=== PATIENT | female | born 1995 | race Two or more races ===

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

== ENCOUNTER 2017-01-04 17:56 | Emergency (ER) ==
[2017-01-04 17:56] VITALS: BMI 23.9
[2017-01-04 18:00] VITALS: BP 117/74; TEMP 97.8
--- NOTE | 2017-01-04 18:14 | ED.PDOC ---
General ED Provider: Dr. PURNIMA ESQUIVEL Chief Complaint: Tooth Problem Stated Complaint: DENTAL PAIN Time Seen by Physician: 18:00 Mode of Arrival: Walk-In Information Source: Patient Exam Limitations: No limitations Primary Care Provider: HARRY RENNER Nursing and Triage Documentation Reviewed and Agree: Yes EENT Complaint Exam - Dental/Oral Complaint/Exam Mechanism of Injury: No known trauma Onset/Duration: 3 DAYS Symptoms Are: Still present Timing: Constant Initial Severity: Moderate Current Severity: Moderate Character: Reports: Aching, Throbbing Aggravating: Reports: None, Heat, Cold, Chewing Alleviating: Reports: None Associated Signs and Symptoms: Denies: Swelling, Discharge, Fever, Foul odor, Foul taste in mouth Cardiac Risk Factors: Reports: None Dental/Oral Surgical History: Reports: None Tooth Findings: Present: Gross decay Cervical Lymphadenopathy Present: No Facial Swelling Present: No Bleeding Present: No Oropharynx Findings: Absent: Clots, Active bleeding Septal Hematoma: No Foreign Body Present: No Dysphagia Present: No Drooling Present: No Asymmetrical Tonsillar Swelling Present: No Uvula Midline: Yes Lety-tonsillar Fluctuence: No Trismus Present: No Palatal Petechiae Present: No Scarlatinaform Rash Present: No Teeth Picture: 1 - DECAY Differential Diagnoses: Fractured Tooth Review of Systems - Review Of Systems Constitutional: Reports: No symptoms Eyes: Reports: No symptoms Ears, Nose, Mouth, Throat: Reports: No symptoms Respiratory: Reports: No symptoms Cardiac: Reports: No symptoms GI: Reports: No symptoms : Reports: No symptoms Musculoskeletal: Reports: No symptoms Skin: Reports: No symptoms Neurological: Reports: No symptoms Endocrine: Reports: No symptoms Hematologic/Lymphatic: Reports: No symptoms All Other Systems: Reviewed and Negative Past Medical History - Past Medical History Previously Healthy: No Endocrine: Reports: None Cardiovascular: Reports: None Respiratory: Reports: None Hematological: Reports: None Gastrointestinal: Reports: GERD Genitourinary: Reports: None Neuro/Psych: Reports: Migraine, Anxiety, Depression Musculoskeletal: Reports: None Cancer: Reports: None Last Menstrual Period: 3 days ago Other Pertinent Past Medical History: dep anx migr appy tonsils smoker - Surgical History General Surgical History: Reports: Appendectomy, Tonsillectomy - Family History Family History: Reports: Unknown - Social History Smoking Status: Current every day smoker, Light tobacco smoker Hx Substance Use: No Alcohol Screening: None Physical Exam - Physical Exam Appearance: Well-appearing, No pain distress, Well-nourished Eyes: ANGELA, EOMI, Conjunctiva clear ENT: Ears normal, Nose normal, Oropharynx normal Respiratory: Airway patent, Breath sounds clear, Breath sounds equal, Respirations nonlabored Cardiovascular: RRR, Pulses normal, No rub, No murmur GI/: Soft, Nontender, No masses, Bowel sounds normal, No Organomegaly Musculoskeletal: Normal strength, ROM intact, No edema, No calf tenderness Skin: Warm, Dry, Normal color Neurological: Sensation intact, Motor intact, Reflexes intact, Cranial nerves intact, Alert, Oriented Psychiatric: Affect appropriate, Mood appropriate Critical Care Note - Critical Care Note Total Time (mins): 0 Course - Course Vital Signs: Temp Pulse Resp BP Pulse Ox 01/04/17 17:56 97.8 F 104 H 20 117/74 98 Departure - Departure Time of Disposition: 18:14 Disposition: HOME SELF-CARE Discharge Problem: Toothache Instructions: Toothache (ED) Condition: Good Pt referred to PMD for follow-up: No Allergies/Adverse Reactions: Allergies codeine Adverse Reaction (Verified 01/04/17 18:01) nausea, vomit, itching morphine Adverse Reaction (Verified 01/04/17 18:01) ITCHING/VOMITING naproxen Adverse Reaction (Verified 01/04/17 18:01) Vomiting Home Medications: Ambulatory Orders Dextroamphetamine/Amphetamine [Adderall 15 Mg Tablet] 15 mg PO BID #60 Dextroamphetamine/Amphetamine [Adderall 30 Mg Tablet] 30 mg PO DAILY #30 Diazepam [Valium] 10 mg PO QID #120 10/21/16
== END 2017-01-04 18:18 | disposition home or self-care (01) ==
LOC: ED 17:56
DX: K02.9 Dental caries, unspecified (principal); F17.200 Nicotine dependence, unspecified, uncomplicated
CPT/HCPCS: 99282

== ENCOUNTER 2017-01-14 16:35 | Emergency (ER) ==
[2017-01-14 16:36] VITALS: BMI 23.9
[2017-01-14 16:47] VITALS: BP 114/72; TEMP 98.5
[2017-01-14] MEDS ORDERED: ULTRAM PO STA (16:55)
--- NOTE | 2017-01-14 16:57 | ED.PDOC ---
General ED Provider: Dr. JUAN ANTONIO BURGER Chief Complaint: Tooth Problem Stated Complaint: Been hurting in front teeth, was here couple days ago, Time Seen by Physician: 16:55 Mode of Arrival: Walk-In Information Source: Patient Primary Care Provider: JUAN ANTONIO BURGER-[facility] Nursing and Triage Documentation Reviewed and Agree: Yes EENT Complaint Exam - Dental/Oral Complaint/Exam Mechanism of Injury: No known trauma Symptoms Are: Still present Timing: Constant Initial Severity: Mild Current Severity: Mild Character: Reports: Dull Aggravating: Reports: Cold, Chewing Alleviating: Reports: None Associated Signs and Symptoms: Denies: Swelling, Discharge, Fever, Foul odor, Foul taste in mouth Related History: Reports: Similar episode Cardiac Risk Factors: Reports: None Dental/Oral Surgical History: Reports: None Tooth Findings: Present: Percussion tenderness, Gross decay Cervical Lymphadenopathy Present: No Facial Swelling Present: No Teeth Picture: 1 - dental caries. Differential Diagnoses: Dental Caries Review of Systems - Review Of Systems Constitutional: Reports: No symptoms Eyes: Reports: No symptoms Ears, Nose, Mouth, Throat: Reports: Mouth pain Respiratory: Reports: No symptoms Cardiac: Reports: No symptoms GI: Reports: No symptoms : Reports: No symptoms Musculoskeletal: Reports: No symptoms Skin: Reports: No symptoms Neurological: Reports: No symptoms Endocrine: Reports: No symptoms Hematologic/Lymphatic: Reports: No symptoms All Other Systems: Reviewed and Negative Past Medical History - Past Medical History Previously Healthy: No Endocrine: Reports: None Cardiovascular: Reports: None Respiratory: Reports: None Hematological: Reports: None Gastrointestinal: Reports: GERD Genitourinary: Reports: None Neuro/Psych: Reports: Migraine, Anxiety, Depression Musculoskeletal: Reports: None Cancer: Reports: None Last Menstrual Period: last month Other Pertinent Past Medical History: dep anx migr appy tonsils smoker - Surgical History General Surgical History: Reports: Appendectomy, Tonsillectomy - Family History Family History: Reports: Unknown - Social History Smoking Status: Current every day smoker, Light tobacco smoker Smoking Cessation Counseling Time: > 3 min - 10 min Hx Substance Use: No Alcohol Screening: None - Immunizations Tetanus Shot up to Date: Yes Physical Exam - Physical Exam Appearance: Well-appearing, No pain distress, Well-nourished Eyes: AGNELA, EOMI, Conjunctiva clear ENT: Ears normal, Nose normal, Oropharynx normal Respiratory: Airway patent, Breath sounds clear, Breath sounds equal, Respirations nonlabored Cardiovascular: RRR, Pulses normal, No rub, No murmur GI/: Soft, Nontender, No masses, Bowel sounds normal, No Organomegaly Musculoskeletal: Normal strength, ROM intact, No edema, No calf tenderness Skin: Warm, Dry, Normal color Neurological: Sensation intact, Motor intact, Reflexes intact, Cranial nerves intact, Alert, Oriented Psychiatric: Affect appropriate, Mood appropriate Critical Care Note - Critical Care Note Total Time (mins): 0 Course - Course Orders, Labs, Meds: Orders Category Date Time Status Tramadol HCl [Ultram] MEDS 01/14/17 16:55 Stat 50 mg PO ONCE STA Medications Generic Name Dose Route Start Last Admin Trade Name Freq PRN Reason Stop Dose Admin Tramadol HCl 50 mg 01/14/17 16:55 Ultram PO 01/14/17 16:56 ONCE STA Vital Signs: Temp Pulse Resp BP Pulse Ox 01/14/17 16:36 98.5 F 98 H 16 114/72 96 Departure - Departure Time of Disposition: 16:58 Disposition: HOME SELF-CARE Discharge Problem: Toothache Instructions: Cavity Preventive (For the teeth or gums) Condition: Stable Pt referred to PMD for follow-up: Yes Additional Instructions: needs f/u with dentist advised to quite smoking ' Prescriptions: Tramadol HCl 50 mg PO BID #14 tablet Allergies/Adverse Reactions: Allergies codeine Adverse Reaction (Verified 01/14/17 16:42) nausea, vomit, itching morphine Adverse Reaction (Verified 01/14/17 16:42) ITCHING/VOMITING naproxen Adverse Reaction (Verified 01/14/17 16:42) Vomiting Home Medications: Ambulatory Orders Dextroamphetamine/Amphetamine [Adderall 15 Mg Tablet] 15 mg PO DAILY #60 Dextroamphetamine/Amphetamine [Adderall 30 Mg Tablet] 30 mg PO BID #30 Diazepam [Valium] 10 mg PO QID #120 10/21/16 Tramadol HCl 50 mg PO BID #14 tablet 01/14/17 Disposition Discussed With: Patient, Family
== END 2017-01-14 17:07 | disposition home or self-care (01) ==
LOC: ED 16:35
DX: K08.89 Other specified disorders of teeth and supporting structures (principal); K02.7 Dental root caries; F17.210 Nicotine dependence, cigarettes, uncomplicated
CPT/HCPCS: 99282

== ENCOUNTER 2017-01-29 22:01 | Emergency (ER) ==
[2017-01-29 22:09] VITALS: BP 110/75; TEMP 98; BMI 26.0
--- NOTE | 2017-01-29 22:19 | ED.PDOC ---
General ED Provider: Dr. PAO GARRIDO-ER Chief Complaint: Tooth Problem Stated Complaint: my tooth hurts Time Seen by Physician: 22:05 Mode of Arrival: Walk-In Information Source: Patient Exam Limitations: No limitations Primary Care [facility] and Triage Documentation Reviewed and Agree: Yes EENT Complaint Exam - Dental/Oral Complaint/Exam Mechanism of Injury: No known trauma Onset/Duration: 24hrs Symptoms Are: Still present Timing: Constant Initial Severity: Mild Current Severity: Moderate Location: left upper incisor Character: Reports: Dull, Aching, Throbbing Aggravating: Reports: None Alleviating: Reports: None Associated Signs and Symptoms: Reports: Swelling. Denies: Discharge, Fever, Foul odor, Foul taste in mouth Related History: Reports: Similar episode, Previous tooth problem Cardiac Risk Factors: Reports: Smoking Tooth Findings: Present: Percussion tenderness, Gross decay, Gross caries Cervical Lymphadenopathy Present: No Facial Swelling Present: No Bleeding Present: No Oropharynx Findings: Absent: Clots, Active bleeding Septal Hematoma: No Foreign Body Present: No Dysphagia Present: No Drooling Present: No Asymmetrical Tonsillar Swelling Present: No Uvula Midline: Yes Lety-tonsillar Fluctuence: No Trismus Present: No Palatal Petechiae Present: No Scarlatinaform Rash Present: No Differential Diagnoses: Dental Caries, Fractured Tooth Review of Systems - Review Of Systems Constitutional: Reports: No symptoms Eyes: Reports: No symptoms Ears, Nose, Mouth, Throat: Reports: Mouth pain, Loose teeth Respiratory: Reports: No symptoms Cardiac: Reports: No symptoms GI: Reports: No symptoms : Reports: No symptoms Musculoskeletal: Reports: No symptoms Skin: Reports: No symptoms Neurological: Reports: No symptoms Endocrine: Reports: No symptoms Hematologic/Lymphatic: Reports: No symptoms All Other Systems: Reviewed and Negative Past Medical History - Past Medical History Previously Healthy: No Endocrine: Reports: None Cardiovascular: Reports: None Respiratory: Reports: None Hematological: Reports: None Gastrointestinal: Reports: GERD Genitourinary: Reports: None Neuro/Psych: Reports: Migraine, Anxiety, Depression Musculoskeletal: Reports: None Cancer: Reports: None Last Menstrual Period: 6 days ago Other Pertinent Past Medical History: dep anx migr appy tonsils smoker - Surgical History General Surgical History: Reports: Appendectomy, Tonsillectomy - Family History Family History: Reports: Unknown - Social History Smoking Status: Current every day smoker, Light tobacco smoker Hx Substance Use: No Alcohol Screening: None Lives: With family - Immunizations Tetanus Shot up to Date: Yes Physical Exam - Physical Exam Appearance: Well-appearing, No pain distress, Well-nourished Eyes: ANGELA ENT: Ears normal, Nose normal, Oropharynx normal (noted left upper incisor tenderness) Neck: Supple Respiratory: Airway patent Cardiovascular: RRR, Pulses normal, No rub, No murmur GI/: Soft Musculoskeletal: Normal strength, ROM intact, No edema, No calf tenderness Skin: Warm, Dry, Normal color Neurological: Sensation intact, Motor intact, Reflexes intact, Cranial nerves intact, Alert, Oriented Psychiatric: Affect appropriate, Mood appropriate Critical Care Note - Critical Care Note Total Time (mins): 0 Course - Course Vital Signs: Temp Pulse Resp BP Pulse Ox 01/29/17 22:02 98 F 84 20 110/75 99 Departure - Departure Time of Disposition: 22:20 Disposition: HOME SELF-CARE Discharge Problem: Tooth caries Instructions: Toothache (ED) Condition: Good Pt referred to PMD for follow-up: Yes Additional Instructions: norco 7.5mg q 4hrs prn #10--f/u dentist amanda Allergies/Adverse Reactions: Allergies codeine Adverse Reaction (Verified 01/29/17 22:09) nausea, vomit, itching morphine Adverse Reaction (Verified 01/29/17 22:09) ITCHING/VOMITING naproxen Adverse Reaction (Verified 01/29/17 22:09) Vomiting Home Medications: Ambulatory Orders Dextroamphetamine/Amphetamine [Adderall 15 Mg Tablet] 15 mg PO DAILY #60 Dextroamphetamine/Amphetamine [Adderall 30 Mg Tablet] 30 mg PO BID #30 Diazepam [Valium] 10 mg PO QID #120 10/21/16 Disposition Discussed With: Patient
== END 2017-01-29 22:25 | disposition home or self-care (01) ==
LOC: ED 22:01
DX: K02.7 Dental root caries (principal); F17.210 Nicotine dependence, cigarettes, uncomplicated
CPT/HCPCS: 99282

== ENCOUNTER 2017-02-19 21:42 | Emergency (ER) ==
[2017-02-19 21:42] VITALS: BMI 23.9
[2017-02-19 21:59] VITALS: BP 125/87; TEMP 98.6
[2017-02-19] MEDS ORDERED: DECADRON 4 MG/ML SDV IM STA (22:04)
[2017-02-19] MEDS ORDERED: TORADOL IM STA (22:04)
--- NOTE | 2017-02-19 22:23 | ED.PDOC ---
General ED Provider: Dr. JUAN ANTONIO BURGER Chief Complaint: Headache Stated Complaint: Been having headache, migraine attack, light bothering me. also c/o swelling in the vagina, as she used the wrong cream for itching, no it is itching burning. Time Seen by Physician: 22:21 Mode of Arrival: Walk-In Information Source: Patient Primary Care Provider: JUAN ANTONIO BURGER-[facility] Nursing and Triage Documentation Reviewed and Agree: Yes Neurological Complaint Exam - Headache Complaint/Exam Onset: Gradual Symptoms Are: Still present Timing: Constant Episodes Lasting: Hours Worst Headache Ever: No Initial Severity: Moderate Current Severity: Moderate Location: Right, Left, Frontal Character: Reports: Typical headache Aggravating: Reports: Bright lights Alleviating: Reports: None Related Surgical History: Reports: None SAH Risk Factors: Reports: None Meningitis Risk Factors: Reports: None SDH Risk Factors: Reports: None Temporal Arteritis Risk Factors: Reports: None Normal Head CT Within Last 12 Months: Yes Fundoscopic Exam: Present: Normal Findings Papilledema Present: No Temporal Artery Tenderness: Present: None Sinus Tenderness: Present: None TMJ Tenderness: Present: None Meningeal Signs Positive: No Pain on Passive Flexion-Positive Kernig's: No ROM Limited In: No Limitiations Focal Weakness: Present: None Focal Sensory Loss: Present: None Gait: Normal Nystagmus Present: No Gag Reflex Present: Yes [id number]: Normal Findings Romberg Test Positive: No Babinski Sign: Negative Right, Negative Left Differential Diagnoses: Migraine Review of Systems - Review Of Systems Constitutional: Reports: No symptoms Eyes: Reports: No symptoms Ears, Nose, Mouth, Throat: Reports: No symptoms Respiratory: Reports: No symptoms Cardiac: Reports: No symptoms GI: Reports: No symptoms : Reports: No symptoms Musculoskeletal: Reports: No symptoms Skin: Reports: No symptoms Neurological: Reports: Headache Endocrine: Reports: No symptoms Hematologic/Lymphatic: Reports: No symptoms All Other Systems: Reviewed and Negative Past Medical History - Past Medical History Previously Healthy: No Endocrine: Reports: None Cardiovascular: Reports: None Respiratory: Reports: None Hematological: Reports: None Gastrointestinal: Reports: GERD Genitourinary: Reports: None Neuro/Psych: Reports: Migraine, Anxiety, Depression Musculoskeletal: Reports: None Cancer: Reports: None Last Menstrual Period: PRESENTLY Other Pertinent Past Medical History: dep anx migr appy tonsils smoker - Surgical History General Surgical History: Reports: Appendectomy, Tonsillectomy - Family History Family History: Reports: Unknown - Social History Smoking Status: Current every day smoker, Heavy tobacco smoker Smoking Cessation Counseling Time: > 3 min - 10 min Hx Substance Use: No Alcohol Screening: None - Immunizations Tetanus Shot up to Date: Yes Physical Exam - Physical Exam Appearance: Ill-appearing, Thin Pain Distress: Moderate Eyes: ANGELA, EOMI ENT: Ears normal, Nose normal, Oropharynx normal Respiratory: Airway patent, Breath sounds clear, Breath sounds equal, Respirations nonlabored Cardiovascular: RRR, Pulses normal, No rub, No murmur GI/: Soft (nurse marina examined the vagina, left labia swollen ), Nontender, No masses, Bowel sounds normal, No Organomegaly Musculoskeletal: Normal strength, ROM intact, No edema, No calf tenderness Skin: Warm, Dry, Normal color Neurological: Sensation intact, Motor intact, Reflexes intact, Cranial nerves intact, Alert, Oriented Psychiatric: Affect appropriate, Mood appropriate Critical Care Note - Critical Care Note Total Time (mins): 0 Course - Course Orders, Labs, Meds: Orders Category Date Time Status Dexamethasone 4 mg/ml Inj [Decadron 4 mg/ml Sdv] MEDS 02/19/17 22:04 Discontinued 4 mg IM ONCE STA Ketorolac Tromethamine [Toradol] MEDS 02/19/17 22:04 Discontinued 30 mg IM ONCE STA Medications Discontinued Medications Generic Name Dose Route Start Last Admin Trade Name Freq PRN Reason Stop Dose Admin Dexamethasone Sodium Phosphate 4 mg 02/19/17 22:04 02/19/17 22:14 Decadron 4 Mg/Ml Sdv IM 02/19/17 22:05 4 mg ONCE STA Administration Ketorolac Tromethamine 30 mg 02/19/17 22:04 02/19/17 22:13 Toradol IM 02/19/17 22:05 30 mg ONCE STA Administration Vital Signs: Temp Pulse Resp BP Pulse Ox 02/19/17 21:42 98.6 F 84 16 125/87 100 Departure - Departure Time of Disposition: 22:25 Disposition: HOME SELF-CARE Discharge Problem: Headache Instructions: General Allergic Reaction (ED) Condition: Stable Pt referred to PMD for follow-up: Yes Additional Instructions: If not better needs f/u at [facility] Tylenol prn with food Prescriptions: Prednisone 10 mg PO BIDWM #14 tablet Allergies/Adverse Reactions: Allergies codeine Adverse Reaction (Verified 02/19/17 21:50) nausea, vomit, itching morphine Adverse Reaction (Verified 02/19/17 21:50) ITCHING/VOMITING naproxen Adverse Reaction (Verified 02/19/17 21:50) Vomiting Home Medications: Ambulatory Orders Dextroamphetamine/Amphetamine [Adderall 30 mg Tablet] 15 mg PO DAILY 02/19/17 Dextroamphetamine/Amphetamine [Adderall 30 mg Tablet] 30 mg PO BID 02/19/17 Prednisone 10 mg PO BIDWM #14 tablet 02/19/17 Disposition Discussed With: Patient, Family
== END 2017-02-19 22:40 | disposition home or self-care (01) ==
LOC: ED 21:42
DX: R51 Headache (principal); T50.905A Adverse effect of unspecified drugs, medicaments and biological substances, initial encounter; F17.210 Nicotine dependence, cigarettes, uncomplicated
CPT/HCPCS: 96372; 99283

== ENCOUNTER 2017-02-23 13:11 | Emergency (ER) ==
[2017-02-23 13:12] VITALS: BMI 23.9
[2017-02-23 13:18] VITALS: BP 117/75; TEMP 97.6
[2017-02-23 14:03] LABS: BILIRUBIN,URINE Negative (NEGATIVE); KETONES,URINE Trace (NEGATIVE); LEUKOCYTE ESTERASE ,URINE Negative (NEGATIVE); NITRITE,URINE Negative (NEGATIVE); PROTEIN,URINE Negative (NEGATIVE); URINE, BLOOD Trace-intact (NEGATIVE)
[2017-02-23 14:05] LABS: URINE PREGNANCY INTERNAL QC INTERNAL QC VALID
[2017-02-23 14:07] LABS: BASOPHILS # (AUTO) 0.1 K/uL (0-0.2); BASOPHILS % (AUTO) 0.3 % (0.0-3.0); EOSINOPHILS # (AUTO) 0.1 K/ul (0.0-0.7); EOSINOPHILS % (AUTO) 0.8 % (0.0-7.0); HEMOGLOBIN 14.6 g/dl (12.0-16.0); IMMATURE GRANULOCYTE % (AUTO) 0.4 % (0.0-5.0); LYMPHOCYTES # (AUTO) 2.1 K/uL (0.60-3.4); LYMPHOCYTES % (AUTO) 11.5 (10.0-50.0); MEAN CORPUSCULAR HEMOGLOBIN 27.4 pg (27.0-31.0); MEAN CORPUSCULAR HGB CONC 33.2 (31.8-35.4); MEAN CORPUSCULAR VOLUME 82.6 fl (81.0-99.0); MONOCYTES # (AUTO) 0.8 K/uL (0.4-2.0); MONOCYTES % (AUTO) 4.3 (0-10); NEUTROPHILS # (AUTO) 14.8 K/ul (2.0-6.9); NEUTROPHILS % (AUTO) 82.7; PLATELET COUNT 305 10^3/uL (140-440); RED BLOOD COUNT 5.33 10^6/ul (4.20-5.40); WHITE BLOOD COUNT 17.94 K/ul (4.6-10.2)
[2017-02-23 14:14] LABS: ADD URINE MICROSCOPIC YES
[2017-02-23 14:15] LABS: BACTERIA,URINE TRACE (NOT PRESENT)
[2017-02-23 14:23] LABS: ALBUMIN 4.3 g/dL (3.7-5.6); ALBUMIN/GLOBULIN RATIO 1.19; ANION GAP 15.6; BILIRUBIN,TOTAL 0.4 mg/dL (0.60-1.40); BUN/CREATININE RATIO 13.63; CALCIUM 9.1 mg/dL (8.2-10.2); CREATININE 0.66 mg/dL (0.60-1.30); POTASSIUM 3.6 mmol/L (3.5-5.10); TOTAL PROTEIN 7.9 g/dL (6.4-8.2)
--- NOTE | 2017-02-23 14:24 | DI ---
EXAM: Two-view chest HISTORY: Cough TECHNIQUE: Frontal and lateral views of the chest were obtained. Comparison 12/28/2014. FINDINGS: The heart is normal size. Lungs are clear. The pulmonary vasculature appears normal. IMPRESSION: No active cardiopulmonary disease.
--- NOTE | 2017-02-23 14:36 | ED.PDOC ---
General ED Provider: Dr. PURNIMA ESQUIVEL Chief Complaint: Respiratory Complaint Stated Complaint: cough Time Seen by Physician: 13:20 (seen with staff at all times ) Mode of Arrival: Walk-In Information Source: Patient Exam Limitations: No limitations Primary [facility] and Triage Documentation Reviewed and Agree: Yes Respiratory Complaint Exam - Respiratory Complaint/Exam Symptoms Are: Still present Timing: Constant Initial Severity: Moderate Current Severity: Moderate Location: Chest Character: Reports: Non-productive cough Aggravating: Reports: None Alleviating: Reports: None Associated Signs and Symptoms: Reports: URI, Nasal congestion. Denies: Rapid breathing, Dyspnea, Fever, Chills, Chest pain, Pleuritic chest pain, Wheezing, Hemoptysis, Dizziness, Calf pain, Calf swelling, Edema, Hoarseness, Sinus discomfort, Vomiting, Weight loss, Decreased oral intake, Increased thirst, Increased appetite, Increased urination History of Healthcare-Acquired Pneumonia: No Related Surgical History: Reports: None Pulmonary Embolism Risk Factors: None Cardiac Risk Factors: Reports: None Pseudomonas Risk Factors: Reports: None Tuberculosis Risk Factors: Reports: None Status Asthmaticus Risk Factors: Reports: None Home Oxygen Use: No Recent Stress Test: No Recent Echo/LV Function: No Current Antibiotic Use: No Current Asthma Medication Use: No Respiratory Distress: None Inadequate Respiratory Effort: No Dysphagia Present: No Stridor Present: No JVD Present: No Accessory Muscle Use: No Retractions: Not Present Diminished Breath Sounds: No Sinus Tenderness: None Grunting Respirations: No Kussmaul Respirations: No Differential Diagnoses: Pneumonia, Bronchitis Review of Systems - Review Of Systems Constitutional: Reports: No symptoms Eyes: Reports: No symptoms Ears, Nose, Mouth, Throat: Reports: No symptoms Respiratory: Reports: Cough Cardiac: Reports: No symptoms GI: Reports: No symptoms : Reports: No symptoms Musculoskeletal: Reports: No symptoms Skin: Reports: No symptoms Neurological: Reports: No symptoms Endocrine: Reports: No symptoms Hematologic/Lymphatic: Reports: No symptoms All Other Systems: Reviewed and Negative Past Medical History - Past Medical History Previously Healthy: No Endocrine: Reports: None Cardiovascular: Reports: None Respiratory: Reports: None Hematological: Reports: None Gastrointestinal: Reports: GERD Genitourinary: Reports: None Neuro/Psych: Reports: Migraine, Anxiety, Depression Musculoskeletal: Reports: None Cancer: Reports: None Last Menstrual Period: NOW Other Pertinent Past Medical History: dep anx migr appy tonsils smoker - Surgical History General Surgical History: Reports: Appendectomy, Tonsillectomy - Family History Family History: Reports: Unknown - Social History Smoking Status: Current every day smoker Hx Substance Use: No Alcohol Screening: None - Immunizations Tetanus Shot up to Date: Yes Physical Exam - Physical Exam Appearance: Well-appearing, No pain distress, Well-nourished Eyes: ANGELA, EOMI, Conjunctiva clear ENT: Ears normal, Nose normal, Oropharynx normal Respiratory: Airway patent, Breath sounds clear, Breath sounds equal, Respirations nonlabored Cardiovascular: RRR, Pulses normal, No rub, No murmur GI/: Soft, Nontender, No masses, Bowel sounds normal, No Organomegaly Musculoskeletal: Normal strength, ROM intact, No edema, No calf tenderness Skin: Warm, Dry, Normal color Neurological: Sensation intact, Motor intact, Reflexes intact, Cranial nerves intact, Alert, Oriented Psychiatric: Affect appropriate, Mood appropriate Interpretation - Radiology Interpretation Radiology Results: No acute changes Critical Care Note - Critical Care Note Total Time (mins): 0 Course - Course Hematology/Chemistry: 02/23/17 13:55 02/23/17 13:55 Orders, Labs, Meds: Lab Review 02/23/17 02/23/17 13:50 13:55 WBC 17.94 H RBC 5.33 Hgb 14.6 Hct 44.0 MCV 82.6 MCH 27.4 MCHC 33.2 RDW Coeff of Sj 13.8 Plt Count 305 Immature Gran % (Auto) 0.4 Neut % (Auto) 82.7 Lymph % (Auto) 11.5 [place] % (Auto) 4.3 Eos % (Auto) 0.8 Baso % (Auto) 0.3 Immature Gran # (Auto) 0.1 Neut # 14.8 H Lymph # 2.1 [place] # 0.8 Eos # 0.1 Baso # 0.1 Sodium 142 Potassium 3.6 Chloride 106 Carbon Dioxide 24 Anion Gap 15.6 BUN 9 Creatinine 0.66 Estimated GFR (MDRD) 115.00 BUN/Creatinine Ratio 13.63 Glucose 81 Calcium 9.1 Total Bilirubin 0.40 L AST 13 ALT 19 Alkaline Phosphatase 65 Total Protein 7.9 Albumin 4.3 Globulin 3.6 Albumin/Globulin Ratio 1.19 Urine Color Yellow Urine Clarity Clear Urine pH 7.0 Ur Specific [place] 1.025 Urine Protein Negative Urine Glucose (UA) Negative Urine Ketones Trace Urine Blood Trace-intact Urine Nitrite Negative Urine Bilirubin Negative Urine Urobilinogen 0.2 Ur Leukocyte Esterase Negative Urine Microscopic RBC 2-5 Urine Microscopic WBC 0-2 Ur Squamous Epith Cells 2-5 Ur Renal Epithelial Cell 0-2 Calcium Oxalate Crystal 1+ Amorphous Sediment 1+ Urine Bacteria Trace Urine Mucus Trace Urine Test Negative Orders Category Date Time Status CBC W/ AUTO DIFF Stat LAB 02/23/17 13:55 Completed COMPREHENSIVE METABOLIC PANEL Stat LAB 02/23/17 13:55 Completed MOLECULAR GROUP A STREP Stat LAB 02/23/17 13:22 Results TEST URINE [URINE ] Stat LAB 02/23/17 13:50 Completed RAPID STREP SCREEN [STREP SCREEN] Stat LAB 02/23/17 13:22 Results URINALYSIS C & S IF INDICATED Stat LAB 02/23/17 13:50 Completed CHEST, 2 VIEWS PA & LAT Stat RADS 02/23/17 13:42 Completed Vital Signs: Temp Pulse Resp BP Pulse Ox 02/23/17 13:14 97.6 F 72 16 117/75 98 Departure - Departure Time of Disposition: 14:36 Disposition: HOME SELF-CARE Discharge Problem: Cough Instructions: How Your Lungs Work (ED), Acute Cough (ED) Condition: Good Pt referred to PMD for follow-up: Yes Additional Instructions: Please call your Family Physician as soon as possible to schedule a follow-up appointment. Allergies/Adverse Reactions: Allergies codeine Adverse Reaction (Verified 02/23/17 13:13) nausea, vomit, itching morphine Adverse Reaction (Verified 02/23/17 13:13) ITCHING/VOMITING naproxen Adverse Reaction (Verified 02/23/17 13:13) Vomiting Home Medications: Ambulatory Orders Dextroamphetamine/Amphetamine [Adderall 30 mg Tablet] 30 mg PO BID 02/19/17 Prednisone 10 mg PO BIDWM #14 tablet 02/19/17 Disposition Discussed With: Patient
== END 2017-02-23 14:47 | disposition home or self-care (01) ==
LOC: ED 13:11
DX: R05 Cough (principal); F17.210 Nicotine dependence, cigarettes, uncomplicated
CPT/HCPCS: 36415; 80053; 81001; 81025; 85025; 87651; 87880; 99283

== ENCOUNTER 2017-02-26 15:48 | Emergency (ER) ==
[2017-02-26 15:48] VITALS: BMI 23.9
[2017-02-26 15:57] VITALS: BP 129/71; TEMP 97.9
--- NOTE | 2017-02-26 16:00 | ED.PDOC ---
General ED Provider: Dr. GERMÁN VILLALBA JR Chief Complaint: Rash Stated Complaint: patient was seen on the of this month for the same complaint and was given steroids. patient states now area is red and raw and bleeding. states she used the wrong hair removal cream. [ End ] Time Seen by Physician: 16:00 Mode of Arrival: Walk-In Information Source: Patient Exam Limitations: No limitations Primary Care Provider[facility] and Triage Documentation Reviewed and Agree: No Review of Systems - Review Of Systems Constitutional: Reports: No symptoms Eyes: Reports: No symptoms Ears, Nose, Mouth, Throat: Reports: No symptoms Respiratory: Reports: No symptoms Cardiac: Reports: No symptoms GI: Reports: No symptoms : Reports: Burning, Pain, Other Skin: Reports: Rash Neurological: Reports: Anxiety Endocrine: Reports: No symptoms Hematologic/Lymphatic: Reports: No symptoms All Other Systems: Other Past Medical History - Past Medical History Previously Healthy: No Endocrine: Reports: None Cardiovascular: Reports: None Respiratory: Reports: None Hematological: Reports: None Gastrointestinal: Reports: GERD Genitourinary: Reports: None Neuro/Psych: Reports: Migraine, Anxiety, Depression Musculoskeletal: Reports: None Cancer: Reports: None Last Menstrual Period: 1 1/2 weeks ago Other Pertinent Past Medical History: dep anx migr appy tonsils smoker - Surgical History General Surgical History: Reports: Appendectomy, Tonsillectomy - Family History Family History: Reports: Unknown - Social History Smoking Status: Current every day smoker Hx Substance Use: No Alcohol Screening: None Physical Exam - Physical Exam Appearance: Well-appearing Pain Distress: Moderate Neck: Supple Respiratory: Airway patent GI/: Soft, Tender (yellow thick mucoid discharge) Critical Care Note - Critical Care Note Total Time (mins): 0 Course - Course Orders, Labs, Meds: Lab Review 02/26/17 16:30 Clue Cells (Wet Prep) None seen Trichomonas (Wet Prep) None seen Vaginal WBC Moderate HIV 1&2 Antibody Screen Negative HIV P24 Antigen Negative MYLENE Preparation No fungal elements Orders Category Date Time Status CHLAMYDIA/GC AMPLIFICATION Stat LAB 02/26/17 16:30 Received HIV RAPID TEST [RAPID HIV SCREEN] Stat LAB 02/26/17 16:30 Completed MYLENE PREP Stat LAB 02/26/17 16:30 Completed RAPID PLASMA REAGIN Stat LAB 02/26/17 16:30 Received WET PREP Stat LAB 02/26/17 16:30 Completed Ceftriaxone Sodium [Rocephin] MEDS 02/26/17 16:23 Discontinued 250 mg IM ONCE STA Lidocaine HCl/Pf [Lidocaine 1 % Amp 5 ml (Sutures)] MEDS 02/26/17 16:23 Discontinued 0.9 ml IM ONCE STA Medications Discontinued Medications Generic Name Dose Route Start Last Admin Trade Name Colleen ZELAYAN Reason Stop Dose Admin Ceftriaxone Sodium 250 mg 02/26/17 16:23 02/26/17 16:35 Rocephin IM 02/26/17 16:24 250 mg ONCE STA Administration Lidocaine HCl 0.9 ml 02/26/17 16:23 02/26/17 16:37 Lidocaine 1 % Amp 5 Ml (Sutures) IM 02/26/17 16:24 0.9 ml ONCE STA Administration Vital Signs: Temp Pulse Resp BP Pulse Ox 02/26/17 15:49 97.9 F 95 H 16 129/71 96 Departure - Departure Time of Disposition: 16:07 Disposition: HOME SELF-CARE Discharge Problem: Pruritic rash, Vaginal discharge Instructions: Sexually Transmitted Diseases in Adolescents (ED) Condition: Good Pt referred to PMD for follow-up: Yes Additional Instructions: no evidence of yeast, trich or HIV on testing cultures and RPR will be reported to your physician desitin(generic is good) twice a day for three days then Vitamin A&D ointment or Vaseline twice a day until resolved cleanse with shampoo(unscented) once a day Rocephin antibiotic given take doxycycline twice a day for 14 days recheck PMD Tuesday or Tuesday Prescriptions: Doxycycline Monohydrate [Monodox] 100 mg PO BID #28 capsule Allergies/Adverse Reactions: Allergies codeine Adverse Reaction (Verified 02/26/17 15:53) nausea, vomit, itching morphine Adverse Reaction (Verified 02/26/17 15:53) ITCHING/VOMITING naproxen Adverse Reaction (Verified 02/26/17 15:53) Vomiting Home Medications: Ambulatory Orders Dextroamphetamine/Amphetamine [Adderall 30 mg Tablet] 30 mg PO BID 02/19/17 Doxycycline Monohydrate [Monodox] 100 mg PO BID #28 capsule 02/26/17
[2017-02-26] MEDS ORDERED: LIDOCAINE 1 % AMP 5 ML (SUTURES) IM STA (16:23)
[2017-02-26] MEDS ORDERED: ROCEPHIN IM STA (16:23)
[2017-02-26 17:03] LABS: WBC MODERATE (FEW)
[2017-02-26 17:08] LABS: HIV INTERNAL QC INTERNAL QC VALID; HIV-1 p24 ANTIGEN SCREEN NEGATIVE (NEGATIVE); HIV-1/2 ANTIBODY SCREEN NEGATIVE (NEGATIVE)
[2017-03-01 07:10] LABS: RAPID PLASMA REAGIN Non Reactive (Non Reactive)
== END 2017-02-26 17:17 | disposition home or self-care (01) ==
LOC: ED 15:48
DX: R21 Rash and other nonspecific skin eruption (principal); L29.9 Pruritus, unspecified; N89.8 Other specified noninflammatory disorders of vagina; F17.210 Nicotine dependence, cigarettes, uncomplicated
CPT/HCPCS: 36415; 86592; 87210; 87800; 96372; 99283

== ENCOUNTER 2017-03-22 06:29 | Emergency (ER) ==
[2017-03-22 06:31] VITALS: BMI 23.9
[2017-03-22 06:40] VITALS: BP 119/79; TEMP 99.3
[2017-03-22 06:59] LABS: BILIRUBIN,URINE Negative (NEGATIVE); KETONES,URINE Negative (NEGATIVE); LEUKOCYTE ESTERASE ,URINE 3+ (NEGATIVE); NITRITE,URINE Positive (NEGATIVE); PROTEIN,URINE 3+ (NEGATIVE); URINE, BLOOD 2+ (NEGATIVE)
[2017-03-22 07:03] LABS: URINE PREGNANCY INTERNAL QC INTERNAL QC VALID
[2017-03-22 07:06] LABS: ADD URINE MICROSCOPIC YES
[2017-03-22 07:08] LABS: BACTERIA,URINE 4+ (NOT PRESENT)
--- NOTE | 2017-03-22 08:04 | ED.PDOC ---
General ED Provider: Dr. PURNIMA ESQUIVEL Chief Complaint: Back Pain Stated Complaint: back pain Time Seen by Physician: 06:32 (seen with calista at all times ) Mode of Arrival: Walk-In (to have a test) Information Source: Patient Exam Limitations: No limitations Primary [facility] and Triage Documentation Reviewed and Agree: Yes Musculoskeletal Complaint Exam - Back Pain Complaint/Exam Mechanism of Injury: Reports: No known trauma Onset/Duration: 2 days Symptoms Are: Still present Timing: Intermittent Episodes Lasting: Days Initial Severity: Moderate Current Severity: Mild Character: Reports: Aching Aggravating: Reports: None Alleviating: Reports: None Associated Signs and Symptoms: Reports: Flank pain. Denies: Swelling, Redness, Bruising, Fever, Weakness, Numbness, Tingling, Abdominal pain, Bladder incontinence, Bowel incontinence, Weight loss, Pain with weight bearing Related History: Reports: Similar episode TAD Risk Factors: Reports: None Cauda Equina Risk Factors: Reports: None Epidural Abcess Risk Factors: Reports: None Related Surgical History: Reports: None Focal Tenderness: No Paraspinal Muscle Tenderness: No Paraspinal Muscle Spasm: No Scoliosis: No Lordosis: No Kyphosis: No SLR Test: Right Negative, Left Negative Hip Motion Testing Pain: Right Negative, Left Negative Focal Weakness: Present: None Focal Sensory Loss: Present: None Gait: Present: Normal Differential Diagnoses: Strain, Sprain Review of Systems - Review Of Systems Constitutional: Reports: No symptoms Eyes: Reports: No symptoms Ears, Nose, Mouth, Throat: Reports: No symptoms Respiratory: Reports: No symptoms Cardiac: Reports: No symptoms GI: Reports: No symptoms : Reports: No symptoms Musculoskeletal: Reports: Back pain Skin: Reports: No symptoms Neurological: Reports: No symptoms Endocrine: Reports: No symptoms Hematologic/Lymphatic: Reports: No symptoms All Other Systems: Reviewed and Negative Past Medical History - Past Medical History Previously Healthy: No Endocrine: Reports: None Cardiovascular: Reports: None Respiratory: Reports: None Hematological: Reports: None Gastrointestinal: Reports: GERD Genitourinary: Reports: None Neuro/Psych: Reports: Migraine, Anxiety, Depression Musculoskeletal: Reports: None Cancer: Reports: None Last Menstrual Period: February, unsure of date, states, "possibility of " Other Pertinent Past Medical History: dep anx migr appy tonsils smoker - Surgical History General Surgical History: Reports: Appendectomy, Tonsillectomy - Family History Family History: Reports: Unknown - Social History Smoking Status: Current every day smoker Hx Substance Use: No Alcohol Screening: None - Immunizations Tetanus Shot up to Date: Yes Physical Exam - Physical Exam Appearance: Well-appearing, No pain distress, Well-nourished Eyes: ANGELA, EOMI, Conjunctiva clear ENT: Ears normal, Nose normal, Oropharynx normal Respiratory: Airway patent, Breath sounds clear, Breath sounds equal, Respirations nonlabored Cardiovascular: RRR, Pulses normal, No rub, No murmur GI/: Soft, Nontender, No masses, Bowel sounds normal, No Organomegaly Musculoskeletal: Normal strength, ROM intact, No edema, No calf tenderness Skin: Warm, Dry, Normal color Neurological: Sensation intact, Motor intact, Reflexes intact, Cranial nerves intact, Alert, Oriented Psychiatric: Affect appropriate, Mood appropriate Critical Care Note - Critical Care Note Total Time (mins): 0 Course - Course Orders, Labs, Meds: Lab Review 03/22/17 06:51 Urine Color Yellow Urine Clarity Cloudy Urine pH 6.0 Ur Specific [place] 1.025 Urine Protein 3+ Urine Glucose (UA) Negative Urine Ketones Negative Urine Blood 2+ Urine Nitrite Positive Urine Bilirubin Negative Urine Urobilinogen 0.2 Ur Leukocyte Esterase 3+ Urine Microscopic RBC 5-10 Urine Microscopic WBC Tntc Ur Squamous Epith Cells 2-5 Urine Bacteria 4+ Urine Test Negative Orders Category Date Time Status URINALYSIS C & S IF INDICATED Stat LAB 03/22/17 06:51 Completed URINE CULTURE Stat LAB 03/22/17 06:51 Received URINE Stat LAB 03/22/17 06:51 Completed Vital Signs: Temp Pulse Resp BP Pulse Ox 03/22/17 06:32 99.3 F 89 20 119/79 96 Departure - Departure Time of Disposition: 08:04 Disposition: HOME SELF-CARE Discharge Problem: Backache Urinary tract infection Qualifiers: Urinary tract infection type: site unspecified Hematuria presence: without hematuria Qualifier Code: (N39.0) Urinary tract infection, site not specified Instructions: Urinary Tract Infection in Women (ED) Condition: Good Pt referred to PMD for follow-up: Yes Additional Instructions: Please call your Family Physician as soon as possible to schedule a follow-up appointment. Prescriptions: Sulfamethoxazole/Trimethoprim [Bactrim Ds Tablet] 1 each PO BID #10 tablet Allergies/Adverse Reactions: Allergies codeine Adverse Reaction (Verified 03/22/17 06:40) nausea, vomit, itching morphine Adverse Reaction (Verified 03/22/17 06:40) ITCHING/VOMITING naproxen Adverse Reaction (Verified 03/22/17 06:40) Vomiting Home Medications: Ambulatory Orders Dextroamphetamine/Amphetamine [Adderall 30 mg Tablet] 30 mg PO BID 02/19/17 Sulfamethoxazole/Trimethoprim [Bactrim Ds Tablet] 1 each PO BID #10 tablet 03/22
== END 2017-03-22 08:18 | disposition home or self-care (01) ==
LOC: ED 06:29
DX: N39.0 Urinary tract infection, site not specified (principal); R31.9 Hematuria, unspecified; F17.210 Nicotine dependence, cigarettes, uncomplicated
CPT/HCPCS: 81001; 81025; 87086; 87186; 99283

== ENCOUNTER 2017-03-25 15:54 | Inpatient (IN) ==
[2017-03-25 16:08] VITALS: BMI 24.3
[2017-03-25] MEDS ORDERED: LIDOCAINE 1 % AMP 5 ML (SUTURES) IM STA (16:13)
[2017-03-25] MEDS ORDERED: ROCEPHIN IM STA (16:13)
[2017-03-25 16:51] LABS: BASOPHILS % (AUTO) 0.3 % (0.0-3.0); EOSINOPHILS # (AUTO) 0.2 K/ul (0.0-0.7); EOSINOPHILS % (AUTO) 1.6 % (0.0-7.0); HEMATOCRIT 38.6 % (37.0-47.0); HEMOGLOBIN 13.2 g/dl (12.0-16.0); IMMATURE GRANULOCYTE % (AUTO) 0.3 % (0.0-5.0); LYMPHOCYTES # (AUTO) 0.7 K/uL (0.60-3.4); LYMPHOCYTES % (AUTO) 7.1 (10.0-50.0); MEAN CORPUSCULAR HEMOGLOBIN 27.7 pg (27.0-31.0); MEAN CORPUSCULAR HGB CONC 34.2 (31.8-35.4); MEAN CORPUSCULAR VOLUME 81.1 fl (81.0-99.0); MONOCYTES # (AUTO) 0.8 K/uL (0.4-2.0); MONOCYTES % (AUTO) 7.3 (0-10); NEUTROPHILS # (AUTO) 8.6 K/ul (2.0-6.9); NEUTROPHILS % (AUTO) 83.4; PLATELET COUNT 246 10^3/uL (140-440); RED BLOOD COUNT 4.76 10^6/ul (4.20-5.40); WHITE BLOOD COUNT 10.31 K/ul (4.6-10.2)
[2017-03-25 16:53] LABS: BILIRUBIN,URINE Negative (NEGATIVE); KETONES,URINE 1+ (NEGATIVE); LEUKOCYTE ESTERASE ,URINE 3+ (NEGATIVE); NITRITE,URINE Positive (NEGATIVE); PH,URINE 7.5 (5-9); PROTEIN,URINE Trace (NEGATIVE); URINE, BLOOD 2+ (NEGATIVE)
[2017-03-25 16:57] LABS: ADD URINE MICROSCOPIC YES
[2017-03-25 16:58] LABS: BACTERIA,URINE 3+ (NOT PRESENT)
--- NOTE | 2017-03-25 17:04 | ED.PDOC ---
General ED Provider: Dr. PURNIMA ESQUIVEL Chief Complaint: Abdominal Pain Stated Complaint: abdominal pain, flank pain left sided Time Seen by Physician: 16:00 (left flank pain recent UTI on bactrim) Mode of Arrival: Wheelchair Information Source: Patient Exam Limitations: No limitations Primary Care Provider: [facility] Nursing and Triage Documentation Reviewed and Agree: Yes (seen with keyonna at all times ) GI Complaint Exam - Abdominal Pain Complaint/Exam Onset: Gradual Duration: 2 days Symptoms Are: Still present Timing: Constant Initial Severity: Moderate Current Severity: Mild Location of Pain: LLQ Radiates To: Reports: Flank (left) Character: Reports: Aching Aggravating: Reports: None Alleviating: Reports: None Associated Signs and Symptoms: Reports: Dysuria, Nausea, Vomiting. Denies: Diaphoresis, Fever, Cough, Chest pain, Dizziness, Back pain, Constipation, Blood in stool, Urinary frequency, Decreased urine output, Decreased appetite, Vaginal bleeding, Vaginal discharge, Diarrhea, Sore throat, Decreased activity Ectopic Risk Factors: Reports: None Ovarian Torsion Risk Factors: Reports: None Surgical Obstruction Risk Factors: Reports: None Related Surgical History: Reports: None Patient Rh Status: Unknown Abdominal Findings: Present: None Differential Diagnoses: Appendicitis, Bowel Obstruction, Constipation, Gastroenteritis, Renal Colic, Ureteral Stone, UTI Review of Systems - Review Of Systems Constitutional: Reports: Malaise, Weakness Eyes: Reports: No symptoms Ears, Nose, Mouth, Throat: Reports: No symptoms Respiratory: Reports: No symptoms Cardiac: Reports: No symptoms GI: Reports: Abdominal pain, Nausea, Vomiting : Reports: No symptoms Musculoskeletal: Reports: No symptoms Skin: Reports: No symptoms Neurological: Reports: No symptoms Endocrine: Reports: No symptoms Hematologic/Lymphatic: Reports: No symptoms All Other Systems: Reviewed and Negative Past Medical History - Past Medical History Previously Healthy: No Endocrine: Reports: None Cardiovascular: Reports: None Respiratory: Reports: None Hematological: Reports: None Gastrointestinal: Reports: GERD Genitourinary: Reports: None Neuro/Psych: Reports: Migraine, Anxiety, Depression Musculoskeletal: Reports: None Cancer: Reports: None Last Menstrual Period: now Other Pertinent Past Medical History: dep anx migr appy tonsils smoker - Surgical History General Surgical History: Reports: Appendectomy, Tonsillectomy - Family History Family History: Reports: Unknown - Social History Smoking Status: Current every day smoker, Heavy tobacco smoker Hx Substance Use: No Alcohol Screening: None Physical Exam - Physical Exam Appearance: Well-appearing, No pain distress, Well-nourished Eyes: ANGELA, EOMI, Conjunctiva clear ENT: Ears normal, Nose normal, Oropharynx normal Respiratory: Airway patent, Breath sounds clear, Breath sounds equal, Respirations nonlabored Cardiovascular: RRR, Pulses normal, No rub, No murmur GI/: Soft, Nontender, No masses, Bowel sounds normal, No Organomegaly Musculoskeletal: Normal strength, ROM intact, No edema, No calf tenderness Skin: Warm, Dry, Normal color Neurological: Sensation intact, Motor intact, Reflexes intact, Cranial nerves intact, Alert, Oriented Psychiatric: Affect appropriate, Mood appropriate Physician Notification - Case Discussed Physician Notified: [email or web address] Time of Notification: 17:05 Critical Care Note - Critical Care Note Total Time (mins): 0 Course - Course Hematology/Chemistry: 03/25/17 16:49 Orders, Labs, Meds: Lab Review 03/25/17 16:49 WBC 10.31 H RBC 4.76 Hgb 13.2 Hct 38.6 MCV 81.1 MCH 27.7 MCHC 34.2 RDW Coeff of Sj 13.7 Plt Count 246 Immature Gran % (Auto) 0.3 Neut % (Auto) 83.4 Lymph % (Auto) 7.1 L [place] % (Auto) 7.3 Eos % (Auto) 1.6 Baso % (Auto) 0.3 Immature Gran # (Auto) 0.0 Neut # 8.6 H Lymph # 0.7 [place] # 0.8 Eos # 0.2 Baso # 0.0 Urine Color Yellow Urine Clarity Cloudy Urine pH 7.5 Ur Specific [place] 1.015 Urine Protein Trace Urine Glucose (UA) Negative Urine Ketones 1+ Urine Blood 2+ Urine Nitrite Positive Urine Bilirubin Negative Urine Urobilinogen 1.0 Ur Leukocyte Esterase 3+ Urine Microscopic RBC 5-10 Urine Microscopic WBC 30-50 Ur Squamous Epith Cells Not present Urine Bacteria 3+ Orders Category Date Time Status CBC W/ AUTO DIFF Stat LAB 03/25/17 16:12 Ordered COMPREHENSIVE METABOLIC PANEL Stat LAB 03/25/17 16:12 Ordered SERUM Stat LAB 03/25/17 Ordered URINALYSIS C & S IF INDICATED Stat LAB 03/25/17 16:12 Uncollected URINE CULTURE Stat LAB 03/25/17 16:49 Received Ceftriaxone Sodium [Rocephin] MEDS 03/25/17 16:13 Discontinued 1 gm IM ONCE STA Lidocaine HCl/Pf [Lidocaine 1 % Amp 5 ml (Sutures)] MEDS 03/25/17 16:13 Discontinued 2.1 ml IM ONCE STA CT ABDOMEN/PELVIS WO CONTRAST Stat RADS 03/25/17 16:12 Ordered Medications Discontinued Medications Generic Name Dose Route Start Last Admin Trade Name Colleen PRN Reason Stop Dose Admin Ceftriaxone Sodium 1 gm 03/25/17 16:13 03/25/17 16:52 Rocephin IM 03/25/17 16:14 1 gm ONCE STA Administration Lidocaine HCl 2.1 ml 03/25/17 16:13 03/25/17 16:53 Lidocaine 1 % Amp 5 Ml (Sutures) IM 03/25/17 16:14 2.1 ml ONCE STA Administration Vital Signs: Temp Pulse Resp BP Pulse Ox 03/25/17 15:57 100.2 F H 109 H 20 104/63 95 Departure - Departure Time of Disposition: 17:30 Disposition: ADMITTED INPATIENT Discharge Problem: Abdominal pain UTI (urinary tract infection) Qualifiers: Urinary tract infection type: site unspecified Instructions: Urinary Tract Infection in Women (ED) Condition: Good Pt referred to PMD for follow-up: Yes Allergies/Adverse Reactions: Allergies codeine Adverse Reaction (Verified 03/25/17 16:08) nausea, vomit, itching morphine Adverse Reaction (Verified 03/25/17 16:08) ITCHING/VOMITING naproxen Adverse Reaction (Verified 03/25/17 16:08) Vomiting Home Medications: Ambulatory Orders Dextroamphetamine/Amphetamine [Adderall 30 mg Tablet] 30 mg PO BID 02/19/17 Sulfamethoxazole/Trimethoprim [Bactrim Ds Tablet] 1 each PO BID #10 tablet 03/22
[2017-03-25 17:17] LABS: SERUM PREGNANCY INTERNAL QC INTERNAL QC VALID
[2017-03-25 17:23] LABS: ALBUMIN 3.7 g/dL (3.7-5.6); ALBUMIN/GLOBULIN RATIO 0.97; ANION GAP 11.5; BILIRUBIN,TOTAL 0.43 mg/dL (0.60-1.40); BUN/CREATININE RATIO 5.55; CALCIUM 9.2 mg/dL (8.2-10.2); CREATININE 0.72 mg/dL (0.60-1.30); POTASSIUM 4.5 mmol/L (3.5-5.10); TOTAL PROTEIN 7.5 g/dL (6.4-8.2)
--- NOTE | 2017-03-25 18:03 | CT ---
EXAM: CT abdomen and pelvis without contrast HISTORY: Left flank pain TECHNIQUE: Multi-slice transaxial helical with coronal and sagittal reformed images COMPARISON: CT abdomen/pelvis from 07/02/2016 FINDINGS: Minimal dependent atelectasis is noted. The heart size is normal. No pericardial or pleu ral effusions are evident. The hepatic attenuation is normal relative to the spleen. The gallbladder is present without biliar y dilatation. The pancreas adrenal glands are normal. The spleen has normal size and attenuation. The kidneys and ureters are normal. The nonopacified bladder is normal. A tampon is positioned in the vagina. Trace free pelvic fluid is suggested. The intestines have normal caliber without evid ence of obstruction or acute inflammation. The appendix is not visualized with certainty. There ar e no secondary CT findings to suggest acute appendicitis. No lymphadenopathy is detected. The bones are free of suspicious osteolytic or osteoblastic lesions. IMPRESSION: 1. Trace free pelvic fluid. 2. Nonobstructive intestinal gas pattern. 3. Normal renal collecting systems.
[2017-03-25] MEDS: TORADOL IVP PRN (20:07)
[2017-03-26] MEDS: TORADOL IVP PRN ×4 (02:37→20:53)
[2017-03-26 05:14] LABS: BASOPHILS # (AUTO) 0.1 K/uL (0-0.2); BASOPHILS % (AUTO) 0.6 % (0.0-3.0); EOSINOPHILS # (AUTO) 0.2 K/ul (0.0-0.7); EOSINOPHILS % (AUTO) 2.7 % (0.0-7.0); HEMATOCRIT 38.5 % (37.0-47.0); HEMOGLOBIN 12.9 g/dl (12.0-16.0); IMMATURE GRANULOCYTE % (AUTO) 0.2 % (0.0-5.0); LYMPHOCYTES # (AUTO) 0.9 K/uL (0.60-3.4); LYMPHOCYTES % (AUTO) 10.7 (10.0-50.0); MEAN CORPUSCULAR HEMOGLOBIN 27.2 pg (27.0-31.0); MEAN CORPUSCULAR HGB CONC 33.5 (31.8-35.4); MEAN CORPUSCULAR VOLUME 81.2 fl (81.0-99.0); MONOCYTES # (AUTO) 0.7 K/uL (0.4-2.0); MONOCYTES % (AUTO) 8.5 (0-10); NEUTROPHILS # (AUTO) 6.3 K/ul (2.0-6.9); NEUTROPHILS % (AUTO) 77.3; PLATELET COUNT 225 10^3/uL (140-440); RED BLOOD COUNT 4.74 10^6/ul (4.20-5.40); WHITE BLOOD COUNT 8.12 K/ul (4.6-10.2)
[2017-03-26 05:32] LABS: ALBUMIN 3.3 g/dL (3.7-5.6); ALBUMIN/GLOBULIN RATIO 0.89; ANION GAP 17.2; BILIRUBIN,TOTAL 0.18 mg/dL (0.60-1.40); BUN/CREATININE RATIO 15.71; CALCIUM 9.1 mg/dL (8.2-10.2); CREATININE 0.7 mg/dL (0.60-1.30); POTASSIUM 4.2 mmol/L (3.5-5.10)
[2017-03-26] MEDS ORDERED: ROCEPHIN 1 GM in SODIUM CHLORIDE 50 ML IV SCH (09:00)
[2017-03-26] MEDS ORDERED: LEVAQUIN 500 MG in PREMIX 100 ML D5W 1 BAG IV SCH (09:00)
[2017-03-26] MEDS ORDERED: TYLENOL PO PRN (18:35)
[2017-03-26 21:54] VITALS: BP 115/60; TEMP 97.9
--- NOTE | 2017-04-18 08:52 | HP ---
DATE OF SERVICE: 03/25/17 CHIEF COMPLAINT: Abdominal pain and flank pain. HISTORY OF PRESENT ILLNESS: This is a 21 year old female came to the emergency room being treated for UTI as outpatient and came back with the worsening left flank pain still burning, frequency of urination, has had a fever, Has not seen the PMD as the left flank pain is getting worse the patient came to the emergency room and seen by Dr. Martinez in the emergency room. Temperature was 100.2. WBC was 10.31 with the left shift. Chemistry was normal. Urine leukocyte esterase positive. Nitrates positive. CT of abdomen and pelvis done which showed trace free pelvic fluid, nonobstructive intestinal gas pattern and normal renal collecting system. As patient had a fever and the did have the left flank pain at that time the patient been admitted to the hospital with the clinical acute pyelonephritis and the treatment failure as outpatient for the IV antibiotics and pain control. REVIEW OF SYSTEMS: CONSTITUTIONAL: Fever and chills.Weakness and tiredness. HEENT: Normal. ENDOCRINE: No weight gain; no weight loss. CVS: No chest pain. No PND, no orthopnea. No shortness of breath. No PND, no orthopnea. RESPIRATORY: No cough, no congestion. No hemoptysis. GI: Nausea, no vomiting. No abdominal pain. No melena. : No hematuria. No polyuria. Burning and frequency of urination. MUSCULOSKELETAL: No joint swelling. Left Flank pain. PSYCHIATRIC: Not anxious. No depression. No suicidal thoughts. No homicidal thoughts. SKIN: Intact, no open lesions. PAST MEDICAL HISTORY: Headaches, migraine Asthma, mild persistent Chronic constipation ADHD Depression Anxiety Nicotine use PAST SURGICAL HISTORY: Tonsillectomy Appendectomy Tubes in the ear Left lung pecan lodged aspirated. PERSONAL HISTORY: The patient does smoke 1/2 pack a day. No alcohol and No drugs. Family history is significant for the SC and ovarian cancer. MEDICATIONS: Valium 10mg PO four times a day Adderall 30mg PO twice a day Bactrim DS one PO twice a day ALLERGIES: Codeine Morphine Naproxen PHYSICAL EXAMINATION: V/S: Temperature 100.2, heart rate 109, blood pressure 104/63, respiratory rate 20. HEENT: Atraumatic, normocephalic. No scleral icterus. Pallor positive. Mucosa dry. NECK: Supple. No JVD, no bruit. No lymphadenopathy. No thyromegaly. HEART: S1, S2 normal. No murmur. No cyanosis or clubbing. No ascites. LUNGS: Clear to auscultation. No rales or rhonchi. ABDOMEN: Soft, nontender. Bowel sounds are active. Left sided CVA tenderness. No rigidity or guarding. EXTREMITIES: No cyanosis, clubbing or pedal edema. MUSCULOSKELETAL: Normal joints, no swelling. NEUROLOGIC: The patient is SKIN: Intact; no open lesions. LYMPHATIC: No lymph nodes palpable. LABS: WBC 10.31, hgb 13.2, hct 38.6, plt count 246, sodium 138, potassium 4.5, chloride 104, bicarb 27, BUN 4, creatinine 0.72, negative. Urine positive for Nitrates and Leukocyte esterase. ASSESSMENT: 1. Acute left sided pyelonephritis, clinically with left shift in the blood count and outpatient treatment failure. 2. History of Migraines 3. Asthma 4. ADHD 5. Depression 6. Nicotine use PLAN: 1. Admit patient to the regular floor 2. CBC and CMP today and daily 3. IV fluids 4. Rocephin 1 gram daily 5. Toradol 30mg IV push Q 6 hour PRN 6. Regular diet Will follow the patient in daily rounds. TIME SPENT: MORE THAN 70 minutes MTDD
--- NOTE | 2017-04-18 14:05 | PN ---
DATE OF SERVICE: 03/26/17 SUBJECTIVE: The patient was admitted with acute pyelonephritis. She is a little bit more ambulatory today. She still has some pain. The patient did have a temperature today early in the morning of 101. The pain is some better, but still has the pain. REVIEW OF SYSTEMS: CONSTITUTIONAL: Fever of 101 this morning, no chills. HEENT: Normal. ENDOCRINE: No weight gain, no weight loss. CVS: No angina symptoms. No CHF symptoms. No palpitations. No atypical chest pain for CAD. No shortness of breath. No PND, no orthopnea. RESPIRATORY: No cough, no hemoptysis. GI: No nausea, no vomiting. No abdominal pain. : No hematuria. No polyuria. MUSCULOSKELETAL:. No joint swelling. PSYCHIATRIC: Not anxious. No depression. No suicidal thoughts. No homicidal thoughts. SKIN: Intact. No rash. PHYSICAL EXAMINATION: V/S: Blood pressure 116/74, respiratory rate 12, heart rate 98, temperature 98.2. HEENT: Normocephalic, atraumatic. Mucosa dry. NECK: Supple. No JVD, no carotid bruit. No lymphadenopathy. LUNGS: Clear to auscultation. No rales or rhonchi. HEART: S1, S2 normal. No S3. No murmur, gallop or regurgitation. ABDOMEN: Soft, nontender. Bowel sounds active. No rigidity. No rebound or guarding. Left CVA tenderness present. EXTREMITIES: No clubbing, cyanosis or pedal edema. MUSCULOSKELETAL: No joint swelling. NEUROLOGIC: Awake, alert, oriented times three. No focal deficit. LYMPHATIC: No lymph nodes palpable. SKIN: Intact. LABS: White count is 8.12, hemoglobin 12.9, hematocrit 38.5, platelet count is 225. Sodium is 138, potassium 4.2, chloride 104, bicarb 21, BUN 11, creatinine 0.70. ASSESSMENT: 1. ACUTE PYELONEPHRITIS, CULTURES PENDING. SO FAR IT GREW HEAVY GRAM NEGATIVE RODS. OUTPATIENT TREATMENT FAILURE WITH BACTRIM DS. 2. HISTORY OF ASTHMA 3. HISTORY OF DEPRESSION/ANXIETY 4. HISTORY OF NICOTINE USE PLAN: 1. Continue the Rocephin. 2. Toradol for pain. 3. IV fluids. 4. Check I & O's. 5. Will follow up with the patient in daily rounds. TIME SPENT: More than 30 minutes MTDD
--- NOTE | 2017-04-18 15:21 | AMA ---
The evening shift nurse called me saying that the patient wanted some pain medications for her boyfriend. The nurses informed her that it is no correct to give the medication to the boyfriend, family or relatives. The patient got upset and she threatened to sign AMA. The nurse talked to me and we both tried to explain to the patient not to leave against medical advise, as the patient had a resistant urinary tract infection. The patient did not listen and she said that she is going to [facility] and she signed out against medical advise. Time spent on the patient is 35 minutes today. ED
== END 2017-03-26 22:38 | disposition left against medical advice (07) | DRG 690 ==
LOC: ED 15:54 → MEDSURG B 17:46
PROVIDERS: ADMIT Emergency Medicine; ATTEND Emergency Medicine
DX: N10 Acute pyelonephritis (principal); N39.0 Urinary tract infection, site not specified; B96.20 Unspecified Escherichia coli [E. coli] as the cause of diseases classified elsewhere; J45.909 Unspecified asthma, uncomplicated; F41.8 Other specified anxiety disorders; R50.9 Fever, unspecified; R11.2 Nausea with vomiting, unspecified; R10.32 Left lower quadrant pain; F17.200 Nicotine dependence, unspecified, uncomplicated; Z16.11 Resistance to penicillins; Z79.899 Other long term (current) drug therapy
CPT/HCPCS: 36415; 80053; 81001; 84703; 85025; 87086; 87186; 99223; 99233; 99284

== ENCOUNTER 2017-05-11 17:51 | Emergency (ER) ==
[2017-05-11 17:57] VITALS: BP 120/82; TEMP 97.9; BMI 23.9
--- NOTE | 2017-05-11 18:19 | ED.PDOC ---
General ED Provider: Dr. PURNIMA ESQUIVEL Chief Complaint: Headache Stated Complaint: HEADACHE Time Seen by Physician: 18:00 (THIS PT WAS SEEN AT ALL TIMES WITH LAZARA NINO ) Mode of Arrival: Walk-In Information Source: Patient Exam Limitations: No limitations (AT NO TIME I WAS ALOBE WITH THIS PT) Primary Care Provider: [facility] Nursing and Triage Documentation Reviewed and Agree: Yes Neurological Complaint Exam - Headache Complaint/Exam Onset: Gradual (TODAY DIFFUSE HEADACHE PT WAS PLAYING ON HER PHONE TOLERATING FOCUSING THE SMALL SCREE WITH NO ISSUES (DECEMBER MARIA TERESA RN PRESENT)) Duration: TODAY Symptoms Are: Still present Timing: Intermittent Episodes Lasting: Hours Worst Headache Ever: No Initial Severity: Moderate Current Severity: Mild Location: Diffuse Character: Reports: Typical headache (ALSO STATED SHE HAS SKIN FLAKES LANDING FROM SCALP ON HER SHIRT AT TIMES ) Aggravating: Reports: None Alleviating: Reports: None Associated Signs and Symptoms: Denies: Dizziness, Seizure, Nausea, Vomiting, Sinus pressure, Fever, Neck pain, Neck stiffness, Decreased LOC, Visual changes Related History: Reports: Similar episode Related Surgical History: Reports: None SAH Risk Factors: Reports: None Meningitis Risk Factors: Reports: None SDH Risk Factors: Reports: None Temporal Arteritis Risk Factors: Reports: Female Normal Head CT Within Last 12 Months: No Fundoscopic Exam: Present: Normal Findings Papilledema Present: No Temporal Artery Tenderness: Present: None Sinus Tenderness: Present: None TMJ Tenderness: Present: None Glascow Coma Scale (see protocol): 15 Meningeal Signs Positive: No Pain on Passive Flexion-Positive Kernig's: No Focal Weakness: Present: None Focal Sensory Loss: Present: None Gait: Normal Nystagmus Present: No Gag Reflex Present: Yes Differential Diagnoses: Migraine, Tension Headache Review of Systems - Review Of Systems Constitutional: Reports: No symptoms Eyes: Reports: No symptoms Ears, Nose, Mouth, Throat: Reports: No symptoms Respiratory: Reports: No symptoms Cardiac: Reports: No symptoms GI: Reports: No symptoms : Reports: No symptoms Musculoskeletal: Reports: No symptoms Skin: Reports: No symptoms Neurological: Reports: Headache Endocrine: Reports: No symptoms Hematologic/Lymphatic: Reports: No symptoms All Other Systems: Reviewed and Negative Past Medical History - Past Medical History Previously Healthy: No Endocrine: Reports: None Cardiovascular: Reports: None Respiratory: Reports: None Hematological: Reports: None Gastrointestinal: Reports: GERD Genitourinary: Reports: None Neuro/Psych: Reports: Migraine, Anxiety, Depression Musculoskeletal: Reports: None Cancer: Reports: None Last Menstrual Period: NOW Other Pertinent Past Medical History: dep anx migr appy tonsils smoker - Surgical History General Surgical History: Reports: Appendectomy, Tonsillectomy - Family History Family History: Reports: Unknown - Social History Smoking Status: Current every day smoker, Heavy tobacco smoker Hx Substance Use: No Alcohol Screening: None Physical Exam - Physical Exam Appearance: Well-appearing, No pain distress, Well-nourished Eyes: ANGELA, EOMI, Conjunctiva clear ENT: Ears normal, Nose normal, Oropharynx normal Respiratory: Airway patent, Breath sounds clear, Breath sounds equal, Respirations nonlabored Cardiovascular: RRR, Pulses normal, No rub, No murmur GI/: Soft, Nontender, No masses, Bowel sounds normal, No Organomegaly Musculoskeletal: Normal strength, ROM intact, No edema, No calf tenderness Skin: Warm, Dry, Normal color Neurological: Sensation intact, Motor intact, Reflexes intact, Cranial nerves intact, Alert, Oriented Psychiatric: Affect appropriate, Mood appropriate Critical Care Note - Critical Care Note Total Time (mins): 0 Course - Course Vital Signs: Temp Pulse Resp BP Pulse Ox 05/11/17 17:52 97.9 F 110 H 18 120/82 98 Departure - Departure Time of Disposition: 18:20 (WITH MAY IN THE ROOM AT ALL TIMES SCALP WAS SEARCHED FOR INFECTION OR DERMATITIS NONE NOTED .) Disposition: HOME SELF-CARE Discharge Problem: Headache Instructions: Migraine Headache (ED) Condition: Good Pt referred to PMD for follow-up: Yes Additional Instructions: Please call your Family Physician as soon as possible to schedule a follow-up appointment. Allergies/Adverse Reactions: Allergies codeine Adverse Reaction (Verified 05/11/17 17:58) nausea, vomit, itching morphine Adverse Reaction (Verified 05/11/17 17:58) ITCHING/VOMITING naproxen Adverse Reaction (Verified 05/11/17 17:58) Vomiting Home Medications: Ambulatory Orders Dextroamphetamine/Amphetamine [Adderall 30 mg Tablet] 30 mg PO BID 02/19/17
== END 2017-05-11 18:25 | disposition home or self-care (01) ==
LOC: ED 17:51
DX: R51 Headache (principal); F17.210 Nicotine dependence, cigarettes, uncomplicated
CPT/HCPCS: 99282

== ENCOUNTER 2017-05-16 13:57 | Emergency (ER) ==
[2017-05-16 13:57] VITALS: BMI 23.9
[2017-05-16 14:04] VITALS: BP 108/77; TEMP 99
[2017-05-16 15:05] LABS: BASOPHILS # (AUTO) 0.1 K/uL (0-0.2); BASOPHILS % (AUTO) 0.8 % (0.0-3.0); EOSINOPHILS # (AUTO) 0.1 K/ul (0.0-0.7); EOSINOPHILS % (AUTO) 1.9 % (0.0-7.0); HEMATOCRIT 37.9 % (37.0-47.0); HEMOGLOBIN 12.7 g/dl (12.0-16.0); IMMATURE GRANULOCYTE % (AUTO) 0.2 % (0.0-5.0); LYMPHOCYTES % (AUTO) 34.5 (10.0-50.0); MEAN CORPUSCULAR HEMOGLOBIN 27.2 pg (27.0-31.0); MEAN CORPUSCULAR HGB CONC 33.5 (31.8-35.4); MEAN CORPUSCULAR VOLUME 81.2 fl (81.0-99.0); MONOCYTES # (AUTO) 0.3 K/uL (0.4-2.0); MONOCYTES % (AUTO) 5.6 (0-10); NEUTROPHILS # (AUTO) 3.4 K/ul (2.0-6.9); PLATELET COUNT 226 10^3/uL (140-440); RED BLOOD COUNT 4.67 10^6/ul (4.20-5.40); WHITE BLOOD COUNT 5.91 K/ul (4.6-10.2)
[2017-05-16 15:08] LABS: BILIRUBIN,URINE 1+ (NEGATIVE); KETONES,URINE Trace (NEGATIVE); LEUKOCYTE ESTERASE ,URINE Negative (NEGATIVE); NITRITE,URINE Negative (NEGATIVE); PROTEIN,URINE 2+ (NEGATIVE); URINE, BLOOD 3+ (NEGATIVE)
[2017-05-16 15:15] LABS: ADD URINE MICROSCOPIC YES
[2017-05-16 15:22] LABS: SERUM PREGNANCY INTERNAL QC INTERNAL QC VALID
[2017-05-16 15:27] LABS: PROTHROMBIN TIME 10.6 SEC (9.3-11.0)
[2017-05-16 15:37] LABS: ALBUMIN 4.1 g/dL (3.7-5.6); ALBUMIN/GLOBULIN RATIO 1.32; ANION GAP 10.3; BILIRUBIN,TOTAL 0.57 mg/dL (0.60-1.40); BUN/CREATININE RATIO 9.09; CALCIUM 9.2 mg/dL (8.2-10.2); CREATININE 0.66 mg/dL (0.60-1.30); POTASSIUM 3.3 mmol/L (3.5-5.10); TOTAL PROTEIN 7.2 g/dL (6.4-8.2)
--- NOTE | 2017-05-16 15:55 | ED.PDOC ---
General ED Provider: Dr. PURNIMA ESQUIVEL Chief Complaint: Vaginal Bleeding Stated Complaint: vaginal bleeding Time Seen by Physician: 14:00 (seen with nursing staff at all times) Mode of Arrival: Walk-In Information Source: Patient Primary Care Provider: JUAN ANTONIO [facility] Nursing and Triage Documentation Reviewed and Agree: Yes (nurse present all times (calli)) Complaint Exam - UTI Female Complaint/Exam : 3 Para: 0 Hx Total # of Abortions (Spontaneous & Elective): 2 - Complaint/Exam Onset/Duration: 1 2 hrs of vaginal blleding has used 5 tampon in the ed no active bleeding Symptoms Are: Resolved Timing: Intermittent Episodes of Voiding Over Last 12 Hours: 4 Initial Severity: Mild Current Severity: None Location of Pain: Reports: Suprapubic Character: Reports: Dull Aggravating: Reports: None Alleviating: Reports: None Associated Signs and Symptoms: Reports: Vaginal bleeding. Denies: Diaphoresis, Back pain, Fever, Hematuria, Dysuria, Constipation, Blood in stool, Rectal pain , Appetite change, Nausea, Vomiting, Decreased urine output, Increased urine frequency, Increased thirst, Decreased activity, Lethargy, Abdominal Pain, Bubble bath use, Vaginal discharge, Genital swelling, Genital blisters, Retained foreign body Review of Systems - Review Of Systems Constitutional: Reports: No symptoms Eyes: Reports: No symptoms Ears, Nose, Mouth, Throat: Reports: No symptoms Respiratory: Reports: No symptoms Cardiac: Reports: No symptoms GI: Reports: No symptoms : Reports: Other (vaginal bleeding) Musculoskeletal: Reports: No symptoms Skin: Reports: No symptoms Neurological: Reports: No symptoms Endocrine: Reports: No symptoms Hematologic/Lymphatic: Reports: No symptoms All Other Systems: Reviewed and Negative Past Medical History - Past Medical History Previously Healthy: No Endocrine: Reports: None Cardiovascular: Reports: None Respiratory: Reports: None Hematological: Reports: None Gastrointestinal: Reports: GERD Genitourinary: Reports: None Neuro/Psych: Reports: Migraine, Anxiety, Depression Musculoskeletal: Reports: None Cancer: Reports: None Last Menstrual Period: unknown Other Pertinent Past Medical History: dep anx migr appy tonsils smoker - Surgical History General Surgical History: Reports: Appendectomy, Tonsillectomy - Family History Family History: Reports: Unknown - Social History Smoking Status: Current every day smoker, Heavy tobacco smoker Hx Substance Use: No Alcohol Screening: None Physical Exam - Physical Exam Appearance: Well-appearing, No pain distress, Well-nourished Eyes: ANGELA, EOMI, Conjunctiva clear ENT: Ears normal, Nose normal, Oropharynx normal Respiratory: Airway patent, Breath sounds clear, Breath sounds equal, Respirations nonlabored Cardiovascular: RRR, Pulses normal, No rub, No murmur GI/: Soft, Nontender, No masses, Bowel sounds normal, No Organomegaly Musculoskeletal: Normal strength, ROM intact, No edema, No calf tenderness Skin: Warm, Dry, Normal color Neurological: Sensation intact, Motor intact, Reflexes intact, Cranial nerves intact, Alert, Oriented Psychiatric: Affect appropriate, Mood appropriate Critical Care Note - Critical Care Note Total Time (mins): 0 Course - Course Hematology/Chemistry: 05/16/17 14:55 05/16/17 14:55 Orders, Labs, Meds: Lab Review 05/16/17 05/16/17 05/16/17 14:55 14:55 14:55 WBC 5.91 RBC 4.67 Hgb 12.7 Hct 37.9 MCV 81.2 MCH 27.2 MCHC 33.5 RDW Coeff of Sj 13.8 Plt Count 226 Immature Gran % (Auto) 0.2 Neut % (Auto) 57.0 Lymph % (Auto) 34.5 [place] % (Auto) 5.6 Eos % (Auto) 1.9 Baso % (Auto) 0.8 Immature Gran # (Auto) 0.0 Neut # 3.4 Lymph # 2.0 [place] # 0.3 L Eos # 0.1 Baso # 0.1 PT INR APTT Sodium 137 Potassium 3.3 L Chloride 103 Carbon Dioxide 27 Anion Gap 10.3 BUN 6 L Creatinine 0.66 Estimated GFR (MDRD) 115.00 BUN/Creatinine Ratio 9.09 Glucose 97 Calcium 9.2 Total Bilirubin 0.57 L AST 10 ALT 7 L Alkaline Phosphatase 63 Total Protein 7.2 Albumin 4.1 Globulin 3.1 Albumin/Globulin Ratio 1.32 HCG, Quant Serum , Qual Negative Urine Color Urine Clarity Urine pH Ur Specific [place] Urine Protein Urine Glucose (UA) Urine Ketones Urine Blood Urine Nitrite Urine Bilirubin Urine Urobilinogen Ur Leukocyte Esterase Urine Microscopic RBC Ur Squamous Epith Cells Urine Mucus 05/16/17 05/16/17 05/16/17 14:55 14:55 14:55 WBC RBC Hgb Hct MCV MCH MCHC RDW Coeff of Sj Plt Count Immature Gran % (Auto) Neut % (Auto) Lymph % (Auto) [place] % (Auto) Eos % (Auto) Baso % (Auto) Immature Gran # (Auto) Neut # Lymph # [place] # Eos # Baso # PT 10.6 INR 1.04 APTT 25.0 Sodium Potassium Chloride Carbon Dioxide Anion Gap BUN Creatinine Estimated GFR (MDRD) BUN/Creatinine Ratio Glucose Calcium Total Bilirubin AST ALT Alkaline Phosphatase Total Protein Albumin Globulin Albumin/Globulin Ratio HCG, Quant < 1.20 Serum , Qual Urine Color Yellow Urine Clarity Cloudy Urine pH 6.0 Ur Specific [place] 1.025 Urine Protein 2+ Urine Glucose (UA) Negative Urine Ketones Trace Urine Blood 3+ Urine Nitrite Negative Urine Bilirubin 1+ Urine Urobilinogen 0.2 Ur Leukocyte Esterase Negative Urine Microscopic RBC 2-5 Ur Squamous Epith Cells 2-5 Urine Mucus 3+ Orders Category Date Time Status CBC W/ AUTO DIFF Stat LAB 05/16/17 14:55 Completed COMPREHENSIVE METABOLIC PANEL Stat LAB 05/16/17 14:55 Completed HCG,QUANTITATIVE Stat LAB 05/16/17 14:55 Completed PARTIAL THROMBOPLASTIN TIME Stat LAB 05/16/17 14:55 Completed SERUM TEST [SERUM ] Stat LAB 05/16/17 14:55 Completed PT WITH INR Stat LAB 05/16/17 14:55 Completed URINALYSIS C & S IF INDICATED Stat LAB 05/16/17 14:55 Completed Vital Signs: Temp Pulse Resp BP Pulse Ox 05/16/17 14:00 99.0 F 97 H 16 108/77 99 Departure - Departure Time of Disposition: 15:56 (with calli present labs shared . must follow up with pmd ) Disposition: HOME SELF-CARE Discharge Problem: Bleeding from vagina Instructions: Dysfunctional Uterine Bleeding (ED) Condition: Good Pt referred to PMD for follow-up: Yes Additional Instructions: Please call your Family Physician as soon as possible to schedule a follow-up appointment. as and calli discussed with you . your test was negative. you must follow up with [facility] DIRECT[facility] doctor TO FOLLOW YOU FOR DYSFUNCTIONAL UTERINE BLEEDING. Allergies/Adverse Reactions: Allergies codeine Adverse Reaction (Verified 05/16/17 14:04) nausea, vomit, itching morphine Adverse Reaction (Verified 05/16/17 14:04) ITCHING/VOMITING naproxen Adverse Reaction (Verified 05/16/17 14:04) Vomiting Home Medications: Ambulatory Orders Dextroamphetamine/Amphetamine [Adderall 30 mg Tablet] 30 mg PO BID 02/19/17
== END 2017-05-16 16:02 | disposition home or self-care (01) ==
LOC: ED 13:57
DX: N93.8 Other specified abnormal uterine and vaginal bleeding (principal); F17.210 Nicotine dependence, cigarettes, uncomplicated
CPT/HCPCS: 36415; 80053; 81001; 84702; 84703; 85025; 85610; 85730; 99283

== ENCOUNTER 2017-06-18 00:52 | Emergency (ER) ==
[2017-06-18 00:53] VITALS: BMI 19.8
[2017-06-18] MEDS ORDERED: ATIVAN IM STA (00:58)
[2017-06-18 01:00] VITALS: BP 127/83; TEMP 97.9
--- NOTE | 2017-06-18 01:01 | ED.PDOC ---
General ED Provider: Dr. JUAN ANTONIO BURGER Chief Complaint: Non-specific Complaint Stated Complaint: Been anxious, feels like heart is beeting out of the chest,. she is been upset. Time Seen by Physician: 00:59 Primary Care Provider: JUAN ANTONIO B[facility]GER-[facility] Nursing and Triage Documentation Reviewed and Agree: Yes Psychological Complaint Exam - Psychiatric Complaint/Exam Patient Complains Of: Present: Other (anxiety) Symptoms Are: Still present Timing: Constant Episodes Lasting: Hours Initial Severity: Moderate Current Severity: Moderate Character: Present: Anxious Aggravating: Reports: Recent stress Associated Signs And Symptoms: Denies: Hostile, Confused, Hallucinating, Paranoid behavior, Sleep disturbance, Appetite change Related History: Reports: Recent stressors Completed Suicide Risk Factors: None Patient Accompanied By: Family (grand mother) Patient In Custody Of Police: No Social Withdrawal Present: No Social Isolation Present: No Prior Suicide Attempt: No Injury From Prior Suicide Attempt: No Related Surgical History: Reports: None Patient Uncooperative For Exam: No Mood: Present: Anxious Appearance: Present: Clean Thought Process: Present: Logical Insight: Present: Good Memory: Intact Judgement: Normal Differential Diagnoses: Anxiety Review of Systems - Review Of Systems Constitutional: Reports: No symptoms Eyes: Reports: No symptoms Ears, Nose, Mouth, Throat: Reports: No symptoms Respiratory: Reports: No symptoms Cardiac: Reports: No symptoms GI: Reports: No symptoms : Reports: No symptoms Musculoskeletal: Reports: No symptoms Skin: Reports: No symptoms Neurological: Reports: Anxiety Endocrine: Reports: No symptoms Hematologic/Lymphatic: Reports: No symptoms All Other Systems: Reviewed and Negative Past Medical History - Past Medical History Previously Healthy: No Endocrine: Reports: None Cardiovascular: Reports: None Respiratory: Reports: None Hematological: Reports: None Gastrointestinal: Reports: GERD Genitourinary: Reports: None Neuro/Psych: Reports: Migraine, Anxiety, Depression Musculoskeletal: Reports: None Cancer: Reports: None Other Pertinent Past Medical History: dep anx migr appy tonsils smoker - Surgical History General Surgical History: Reports: Appendectomy, Tonsillectomy - Family History Family History: Reports: Unknown - Social History Smoking Status: Current every day smoker, Heavy tobacco smoker Smoking Cessation Counseling Time: > 3 min - 10 min Hx Substance Use: No Alcohol Screening: None Physical Exam - Physical Exam Appearance: Ill-appearing, Thin Eyes: ANGELA, EOMI, Conjunctiva clear ENT: Ears normal, Nose normal, Oropharynx normal Respiratory: Airway patent, Breath sounds clear, Breath sounds equal, Respirations nonlabored Cardiovascular: RRR, No rub, No murmur, Tachycardia GI/: Soft, Nontender, No masses, Bowel sounds normal, No Organomegaly Musculoskeletal: Normal strength, ROM intact, No edema, No calf tenderness Skin: Warm, Dry, Normal color Neurological: Sensation intact, Motor intact, Reflexes intact, Cranial nerves intact, Alert, Oriented Psychiatric: Affect appropriate, Mood appropriate Critical Care Note - Critical Care Note Total Time (mins): 0 Course - Course Hematology/Chemistry: 06/18/17 01:12 06/18/17 01:12 Orders, Labs, Meds: Lab Review 06/18/17 06/18/17 06/18/17 01:12 01:12 01:20 WBC 8.79 RBC 5.03 Hgb 13.9 Hct 42.2 MCV 83.9 MCH 27.6 MCHC 32.9 RDW Coeff of Sj 15.3 H Plt Count Immature Gran % (Auto) 0.2 Neut % (Auto) 70.0 Lymph % (Auto) 23.7 [place] % (Auto) 4.9 Eos % (Auto) 0.6 Baso % (Auto) 0.6 Immature Gran # (Auto) 0.0 Neut # 6.2 Lymph # 2.1 [place] # 0.4 Eos # 0.1 Baso # 0.1 Sodium 138 Potassium 3.4 L Chloride 107 Carbon Dioxide 19 L Anion Gap 15.4 BUN 9 Creatinine 0.66 Estimated GFR (MDRD) 115.00 BUN/Creatinine Ratio 13.63 Glucose 96 Calcium 9.3 Total Bilirubin 0.39 L AST 14 ALT 9 L Alkaline Phosphatase 67 Total Protein 7.6 Albumin 4.4 Globulin 3.2 Albumin/Globulin Ratio 1.38 Urine Color Urine Clarity Urine pH Ur Specific [place] Urine Protein Urine Glucose (UA) Urine Ketones Urine Blood Urine Nitrite Urine Bilirubin Urine Urobilinogen Ur Leukocyte Esterase Urine Microscopic WBC Ur Squamous Epith Cells Urine Bacteria Urine Test Urine Opiates Screen Negative Ur Oxycodone Screen Negative Urine Methadone Screen Negative Ur Propoxyphene Screen Negative Ur Barbiturates Screen Negative U Tricyclic Antidepress Negative Ur Phencyclidine Scrn Negative Ur Amphetamine Screen Positive U Methamphetamines Scrn Positive U Benzodiazepines Scrn Positive Urine Cocaine Screen Negative U Cannabinoids Screen Negative 11/11/17 11/11/17 01:20 01:20 WBC RBC Hgb Hct MCV MCH MCHC RDW Coeff of Sj Plt Count Immature Gran % (Auto) Neut % (Auto) Lymph % (Auto) [place] % (Auto) Eos % (Auto) Baso % (Auto) Immature Gran # (Auto) Neut # Lymph # [place] # Eos # Baso # Sodium Potassium Chloride Carbon Dioxide Anion Gap BUN Creatinine Estimated GFR (MDRD) BUN/Creatinine Ratio Glucose Calcium Total Bilirubin AST ALT Alkaline Phosphatase Total Protein Albumin Globulin Albumin/Globulin Ratio Urine Color Yellow Urine Clarity Clear Urine pH 6.0 Ur Specific [place] 1.010 Urine Protein 1+ Urine Glucose (UA) Negative Urine Ketones 1+ Urine Blood Trace-intact Urine Nitrite Negative Urine Bilirubin Negative Urine Urobilinogen 0.2 Ur Leukocyte Esterase Negative Urine Microscopic WBC 2-5 Ur Squamous Epith Cells 5-10 Urine Bacteria Trace Urine Test Negative Urine Opiates Screen Ur Oxycodone Screen Urine Methadone Screen Ur Propoxyphene Screen Ur Barbiturates Screen U Tricyclic Antidepress Ur Phencyclidine Scrn Ur Amphetamine Screen U Methamphetamines Scrn U Benzodiazepines Scrn Urine Cocaine Screen U Cannabinoids Screen Orders Category Date Time Status EKG-(ED ONLY) Stat CARDIO 06/18/17 00:58 Completed CBC W/ AUTO DIFF Stat LAB 06/18/17 01:12 Completed COMPREHENSIVE METABOLIC PANEL Stat LAB 06/18/17 01:12 Completed DRUG SCREEN, URINE, RAPID Stat LAB 06/18/17 01:20 Completed URINALYSIS C & S IF INDICATED Stat LAB 06/18/17 01:20 Completed URINE Stat LAB 06/18/17 01:20 Completed Lorazepam Inj [Ativan] MEDS 06/18/17 00:58 Discontinued 1 mg IM ONCE STA Medications Discontinued Medications Generic Name Dose Route Start Last Admin Trade Name Freq PRN Reason Stop Dose Admin Lorazepam 1 mg 06/18/17 00:58 06/18/17 01:40 Ativan IM 06/18/17 00:59 1 mg ONCE STA Administration Vital Signs: Temp Pulse Resp BP Pulse Ox 06/18/17 00:54 97.9 F 122 H 20 127/83 99 Departure - Departure Time of Disposition: 01:02 Disposition: HOME SELF-CARE Discharge Problem: Panic attack, Methamphetamine use Instructions: Panic Attack (ED) Condition: Good Pt referred to PMD for follow-up: Yes Additional Instructions: no coffee, no soda or energy drinks. f/u [facility] Prescriptions: Alprazolam [Xanax] 0.25 mg PO BID #6 tablet Allergies/Adverse Reactions: Allergies codeine Adverse Reaction (Verified 06/18/17 01:00) Vomiting nausea, vomit, itching morphine Adverse Reaction (Verified 06/18/17 01:00) ITCHING/VOMITING naproxen Adverse Reaction (Verified 06/18/17 01:00) Vomiting Home Medications: Ambulatory Orders Alprazolam [Xanax] 0.25 mg PO BID #6 tablet 06/18/17 Disposition Discussed With: Patient, Family
[2017-06-18 01:19] LABS: BASOPHILS # (AUTO) 0.1 K/uL (0-0.2); BASOPHILS % (AUTO) 0.6 % (0.0-3.0); EOSINOPHILS # (AUTO) 0.1 K/ul (0.0-0.7); EOSINOPHILS % (AUTO) 0.6 % (0.0-7.0); HEMATOCRIT 42.2 % (37.0-47.0); HEMOGLOBIN 13.9 g/dl (12.0-16.0); IMMATURE GRANULOCYTE % (AUTO) 0.2 % (0.0-5.0); LYMPHOCYTES # (AUTO) 2.1 K/uL (0.60-3.4); LYMPHOCYTES % (AUTO) 23.7 (10.0-50.0); MEAN CORPUSCULAR HEMOGLOBIN 27.6 pg (27.0-31.0); MEAN CORPUSCULAR HGB CONC 32.9 (31.8-35.4); MEAN CORPUSCULAR VOLUME 83.9 fl (81.0-99.0); MONOCYTES # (AUTO) 0.4 K/uL (0.4-2.0); MONOCYTES % (AUTO) 4.9 (0-10); NEUTROPHILS # (AUTO) 6.2 K/ul (2.0-6.9); RED BLOOD COUNT 5.03 10^6/ul (4.20-5.40); WHITE BLOOD COUNT 8.79 K/ul (4.6-10.2)
[2017-06-18 01:30] LABS: BILIRUBIN,URINE Negative (NEGATIVE); KETONES,URINE 1+ (NEGATIVE); LEUKOCYTE ESTERASE ,URINE Negative (NEGATIVE); NITRITE,URINE Negative (NEGATIVE); PROTEIN,URINE 1+ (NEGATIVE); URINE, BLOOD Trace-intact (NEGATIVE)
[2017-06-18 01:31] LABS: URINE PREGNANCY INTERNAL QC INTERNAL QC VALID
[2017-06-18 01:38] LABS: COCAIN SCREEN,URINE NEGATIVE (NEGATIVE)
[2017-06-18 01:41] LABS: ADD URINE MICROSCOPIC YES
[2017-06-18 01:42] LABS: BACTERIA,URINE TRACE (NOT PRESENT)
[2017-06-18 02:18] LABS: ALBUMIN 4.4 g/dL (3.7-5.6); ALBUMIN/GLOBULIN RATIO 1.38; ANION GAP 15.4; BILIRUBIN,TOTAL 0.39 mg/dL (0.60-1.40); BUN/CREATININE RATIO 13.63; CALCIUM 9.3 mg/dL (8.2-10.2); CREATININE 0.66 mg/dL (0.60-1.30); POTASSIUM 3.4 mmol/L (3.5-5.10); TOTAL PROTEIN 7.6 g/dL (6.4-8.2)
== END 2017-06-18 02:37 | disposition home or self-care (01) ==
LOC: ED 00:52
DX: F15.980 Other stimulant use, unspecified with stimulant-induced anxiety disorder (principal); F17.210 Nicotine dependence, cigarettes, uncomplicated
CPT/HCPCS: 36415; 80053; 80306; 81001; 81025; 85025; 93005; 93010; 96372; 99283

== ENCOUNTER 2017-06-28 09:08 | Emergency (ER) ==
[2017-06-28 09:09] VITALS: BMI 19.8
[2017-06-28 09:15] VITALS: BP 101/69; TEMP 96.9
--- NOTE | 2017-06-28 09:23 | ED.PDOC ---
General ED Provider: Dr. BIB CAO Chief Complaint: Respiratory Complaint Stated Complaint: My throat hurts Time Seen by Physician: 09:21 Information Source: Patient Exam Limitations: No limitations Primary Care Provider[facility] and T[facility] Documentation Reviewed and Agree: Yes Review of Systems - Review Of Systems Constitutional: Reports: Malaise Ears, Nose, Mouth, Throat: Reports: Throat pain Respiratory: Reports: Cough (chest hurts when coughing) All Other Systems: Reviewed and Negative Past Medical History - Past Medical History Previously Healthy: No Endocrine: Reports: None Cardiovascular: Reports: None Respiratory: Reports: None Hematological: Reports: None Gastrointestinal: Reports: GERD Genitourinary: Reports: None Neuro/Psych: Reports: Migraine, Anxiety, Depression Musculoskeletal: Reports: None Cancer: Reports: None Last Menstrual Period: 6 days Other Pertinent Past Medical History: dep anx migr appy tonsils smoker - Surgical History General Surgical History: Reports: Appendectomy, Tonsillectomy - Family History Family History: Reports: Unknown - Social History Smoking Status: Current every day smoker, Heavy tobacco smoker Hx Substance Use: No Alcohol Screening: None Physical Exam - Physical Exam Appearance: Well-appearing Eyes: ANGELA, EOMI, Conjunctiva clear ENT: Nose normal, Erythema (Slight pharyngeal erythema) Neck: Supple (No lymphadenopathy) Respiratory: Airway patent, Breath sounds clear, Breath sounds equal Cardiovascular: RRR Skin: Warm, Dry, Normal color Neurological: Sensation intact, Motor intact, Alert, Oriented (Patient speech noted to be slow) Psychiatric: Affect appropriate, Mood appropriate Critical Care Note - Critical Care Note Total Time (mins): 10 Course - Course Orders, Labs, Meds: Lab Review 06/28/17 09:50 Influenza A (Rapid) Negative Influenza B (Rapid) Negative Orders Category Date Time Status MOLECULAR GROUP A STREP Stat LAB 06/28/17 09:50 Results RAPID FLU A/B Stat LAB 06/28/17 09:50 Completed STREP SCREEN Stat LAB 06/28/17 09:50 Results Vital Signs: Temp Pulse Resp BP Pulse Ox 06/28/17 09:09 96.9 F L 113 H 20 101/69 98 Departure - Departure Time of Disposition: 10:29 Disposition: HOME SELF-CARE Discharge Problem: Pharyngitis Instructions: Pharyngitis (ED) Condition: Good Pt referred to PMD for follow-up: Yes Additional Instructions: Tylenol and/or Ibuprofen for fever and discomfort. Follow up with primary care provider as needed. Expect resolution in approximately one week. Allergies/Adverse Reactions: Allergies codeine Adverse Reaction (Verified 06/28/17 09:16) Vomiting nausea, vomit, itching morphine Adverse Reaction (Verified 06/28/17 09:16) ITCHING/VOMITING naproxen Adverse Reaction (Verified 06/28/17 09:16) Vomiting Home Medications: Ambulatory Orders Dextroamphetamine/Amphetamine [Adderall Xr 30 mg Capsule] 15 mg PO BEDTIME 06/28 Dextroamphetamine/Amphetamine [Adderall Xr 30 mg Capsule] 30 mg PO BID 06/28/17 Diazepam [Valium] 10 mg PO QID PRN 06/28/17
[2017-06-28 10:21] LABS: FLU INTERNAL QC INTERNAL QC VALID; RAPID FLU A NEGATIVE (NEGATIVE); RAPID FLU B NEGATIVE (NEGATIVE)
== END 2017-06-28 10:39 | disposition home or self-care (01) ==
LOC: ED 09:08
DX: J02.9 Acute pharyngitis, unspecified (principal); F17.210 Nicotine dependence, cigarettes, uncomplicated
CPT/HCPCS: 87651; 87804; 87880; 99283

== ENCOUNTER 2017-07-08 14:14 | Emergency (ER) ==
[2017-07-08 14:25] VITALS: BP 115/73; TEMP 97.8; BMI 20.2
--- NOTE | 2017-07-08 14:57 | ED.PDOC ---
General ED Provider: Dr. PURNIMA ESQUIVEL Chief Complaint: Tooth Problem Stated Complaint: dental pain Time Seen by Physician: 14:55 (seen with yolanda at all times ) Mode of Arrival: Walk-In Information Source: Patient Exam Limitations: No limitations Primary Care Provider: [facility] Nursing and Triage Documentation Reviewed and Agree: Yes EENT Complaint Exam - Dental/Oral Complaint/Exam Mechanism of Injury: No known trauma Onset/Duration: 1 week Symptoms Are: Still present Timing: Constant Initial Severity: Moderate Current Severity: Mild Character: Reports: Aching Aggravating: Reports: Heat, Cold, Chewing Alleviating: Reports: None Associated Signs and Symptoms: Denies: Swelling, Discharge, Fever, Foul odor, Foul taste in mouth Related History: Reports: Similar episode Cardiac Risk Factors: Reports: None Dental/Oral Surgical History: Reports: None Facial Swelling Present: Yes Bleeding Present: No Oropharynx Findings: Absent: Clots, Active bleeding Septal Hematoma: No Foreign Body Present: No Dysphagia Present: No Drooling Present: No Asymmetrical Tonsillar Swelling Present: No Uvula Midline: Yes Lety-tonsillar Fluctuence: No Teeth Picture: 1 - decay Differential Diagnoses: Dental Caries, Fractured Tooth Review of Systems - Review Of Systems Constitutional: Reports: No symptoms Eyes: Reports: No symptoms Ears, Nose, Mouth, Throat: Reports: No symptoms Respiratory: Reports: No symptoms Cardiac: Reports: No symptoms GI: Reports: No symptoms : Reports: No symptoms Musculoskeletal: Reports: No symptoms Skin: Reports: No symptoms Neurological: Reports: No symptoms Endocrine: Reports: No symptoms Hematologic/Lymphatic: Reports: No symptoms All Other Systems: Reviewed and Negative Past Medical History - Past Medical History Previously Healthy: No Endocrine: Reports: None Cardiovascular: Reports: None Respiratory: Reports: None Hematological: Reports: None Gastrointestinal: Reports: GERD Genitourinary: Reports: None Neuro/Psych: Reports: Migraine, Anxiety, Depression Musculoskeletal: Reports: None Cancer: Reports: None Last Menstrual Period: 2 weeks ago Other Pertinent Past Medical History: dep anx migr appy tonsils smoker - Surgical History General Surgical History: Reports: Appendectomy, Tonsillectomy - Family History Family History: Reports: Unknown - Social History Smoking Status: Current every day smoker Hx Substance Use: No Alcohol Screening: None - Immunizations Tetanus Shot up to Date: Yes Physical Exam - Physical Exam Appearance: Well-appearing, No pain distress, Well-nourished Eyes: ANGELA, EOMI, Conjunctiva clear ENT: Ears normal, Nose normal, Oropharynx normal Respiratory: Airway patent, Breath sounds clear, Breath sounds equal, Respirations nonlabored Cardiovascular: RRR, Pulses normal, No rub, No murmur GI/: Soft, Nontender, No masses, Bowel sounds normal, No Organomegaly Musculoskeletal: Normal strength, ROM intact, No edema, No calf tenderness Skin: Warm, Dry, Normal color Neurological: Sensation intact, Motor intact, Reflexes intact, Cranial nerves intact, Alert, Oriented Psychiatric: Affect appropriate, Mood appropriate Critical Care Note - Critical Care Note Total Time (mins): 0 Course - Course Vital Signs: Temp Pulse Resp BP Pulse Ox 07/08/17 14:18 97.8 F 109 H 22 115/73 98 Departure - Departure Time of Disposition: 14:57 Disposition: HOME SELF-CARE Discharge Problem: Toothache Instructions: Dental Caries (GEN), Toothache (ED) Condition: Good Pt referred to PMD for follow-up: Yes Additional Instructions: Please call your Family Physician as soon as possible to schedule a follow-up appointment. Allergies/Adverse Reactions: Allergies codeine Adverse Reaction (Verified 06/28/17 09:16) Vomiting nausea, vomit, itching morphine Adverse Reaction (Verified 06/28/17 09:16) ITCHING/VOMITING naproxen Adverse Reaction (Verified 06/28/17 09:16) Vomiting Home Medications: Ambulatory Orders Cholecalciferol (Vitamin D3) [Vitamin D3] 1,000 unit PO DAILY 07/08/17 Olanzapine [Zyprexa] 5 mg PO BEDTIME 07/08/17 Trazodone HCl 50 mg PO BEDTIME 07/08/17
== END 2017-07-08 15:04 | disposition home or self-care (01) ==
LOC: ED 14:14
DX: K08.89 Other specified disorders of teeth and supporting structures (principal); K02.7 Dental root caries; F17.210 Nicotine dependence, cigarettes, uncomplicated
CPT/HCPCS: 99282

== ENCOUNTER 2017-07-16 19:41 | Emergency (ER) ==
[2017-07-16 19:41] VITALS: BMI 20.2
[2017-07-16 19:44] VITALS: BP 108/70; TEMP 98.2
--- NOTE | 2017-07-16 19:52 | ED.PDOC ---
General ED Provider: Dr. PAO GARRIDO-ER Chief Complaint: Tooth Problem Stated Complaint: my molars hurt me Time Seen by Physician: 19:45 Mode of Arrival: Walk-In Information Source: Patient, Family Exam Limitations: No limitations Primary Care [facility] Nursing and Triage Documentation Reviewed and Agree: Yes EENT Complaint Exam - Dental/Oral Complaint/Exam Mechanism of Injury: No known trauma Onset/Duration: several weeks Symptoms Are: Still present Initial Severity: Mild Current Severity: Mild Location: right and left lower molars Character: Reports: Dull, Aching, Throbbing Aggravating: Reports: Chewing Alleviating: Reports: None Associated Signs and Symptoms: Reports: Swelling. Denies: Discharge, Fever, Foul odor, Foul taste in mouth Cardiac Risk Factors: Reports: None Dental/Oral Surgical History: Reports: None Tooth Findings: Present: Percussion tenderness Cervical Lymphadenopathy Present: No Facial Swelling Present: No Bleeding Present: No Septal Hematoma: No Foreign Body Present: No Dysphagia Present: No Drooling Present: No Asymmetrical Tonsillar Swelling Present: No Uvula Midline: No Lety-tonsillar Fluctuence: No Trismus Present: No Palatal Petechiae Present: No Scarlatinaform Rash Present: No Differential Diagnoses: Dental Abcess, Odontogenic Pain Review of Systems - Review Of Systems Constitutional: Reports: No symptoms Eyes: Reports: No symptoms Ears, Nose, Mouth, Throat: Reports: Mouth pain Respiratory: Reports: No symptoms Cardiac: Reports: No symptoms GI: Reports: No symptoms : Reports: No symptoms Musculoskeletal: Reports: No symptoms Skin: Reports: No symptoms Neurological: Reports: No symptoms Endocrine: Reports: No symptoms Hematologic/Lymphatic: Reports: No symptoms All Other Systems: Reviewed and Negative Past Medical History - Past Medical History Previously Healthy: No Endocrine: Reports: None Cardiovascular: Reports: None Respiratory: Reports: None Hematological: Reports: None Gastrointestinal: Reports: GERD Genitourinary: Reports: None Neuro/Psych: Reports: Migraine, Anxiety, Depression Musculoskeletal: Reports: None Cancer: Reports: None Last Menstrual Period: CURRENT Other Pertinent Past Medical History: dep anx migr appy tonsils smoker - Surgical History General Surgical History: Reports: Appendectomy, Tonsillectomy - Family History Family History: Reports: Unknown - Social History Smoking Status: Current every day smoker, Heavy tobacco smoker Hx Substance Use: No Alcohol Screening: None Lives: With family - Immunizations Tetanus Shot up to Date: Yes Physical Exam - Physical Exam Appearance: Well-appearing Pain Distress: Mild Eyes: ANGELA, EOMI, Conjunctiva clear ENT: Ears normal, Nose normal, Oropharynx normal Neck: Supple Respiratory: Airway patent Cardiovascular: RRR, Pulses normal, No rub, No murmur GI/: Soft, Nontender, No masses, Bowel sounds normal, No Organomegaly Musculoskeletal: Normal strength, ROM intact, No edema, No calf tenderness Skin: Warm, Dry, Normal color Neurological: Sensation intact Psychiatric: Affect appropriate, Mood appropriate Critical Care Note - Critical Care Note Total Time (mins): 0 Course - Course Vital Signs: Temp Pulse Resp BP Pulse Ox 07/16/17 19:41 98.2 F 114 H 18 108/70 99 Departure - Departure Time of Disposition: 19:52 Disposition: HOME SELF-CARE Discharge Problem: Toothache, Impacted molar Instructions: Toothache (ED) Condition: Good Pt referred to PMD for follow-up: Yes Additional Instructions: finish up antbx at home--norco 5mg q 4hrs prn pain #10--f/u wtih dentist about your molars Allergies/Adverse Reactions: Allergies codeine Adverse Reaction (Verified 06/28/17 09:16) Vomiting nausea, vomit, itching morphine Adverse Reaction (Verified 06/28/17 09:16) ITCHING/VOMITING naproxen Adverse Reaction (Verified 06/28/17 09:16) Vomiting Home Medications: Ambulatory Orders Cholecalciferol (Vitamin D3) [Vitamin D3] 1,000 unit PO DAILY 07/08/17 Olanzapine [Zyprexa] 5 mg PO BEDTIME 07/08/17 Trazodone HCl 50 mg PO BEDTIME 07/08/17 Disposition Discussed With: Patient, Family
== END 2017-07-16 19:57 | disposition home or self-care (01) ==
LOC: ED 19:41
DX: K01.1 Impacted teeth (principal)
CPT/HCPCS: 99282

== ENCOUNTER 2017-07-22 18:05 | Emergency (ER) ==
[2017-07-22 18:05] VITALS: BMI 20.2
[2017-07-22 18:11] VITALS: BP 119/73; TEMP 98.2
[2017-07-22 19:59] LABS: BASOPHILS % (AUTO) 0.5 % (0.0-3.0); EOSINOPHILS # (AUTO) 0.2 K/ul (0.0-0.7); HEMATOCRIT 31.9 % (37.0-47.0); HEMOGLOBIN 10.7 g/dl (12.0-16.0); IMMATURE GRANULOCYTE % (AUTO) 0.1 % (0.0-5.0); LYMPHOCYTES % (AUTO) 39.6 (10.0-50.0); MEAN CORPUSCULAR HEMOGLOBIN 27.7 pg (27.0-31.0); MEAN CORPUSCULAR HGB CONC 33.5 (31.8-35.4); MEAN CORPUSCULAR VOLUME 82.6 fl (81.0-99.0); MONOCYTES # (AUTO) 0.5 K/uL (0.4-2.0); MONOCYTES % (AUTO) 6.4 (0-10); NEUTROPHILS # (AUTO) 3.9 K/ul (2.0-6.9); NEUTROPHILS % (AUTO) 50.4; PLATELET COUNT 268 10^3/uL (140-440); RED BLOOD COUNT 3.86 10^6/ul (4.20-5.40); WHITE BLOOD COUNT 7.65 K/ul (4.6-10.2)
[2017-07-22 20:10] LABS: SERUM PREGNANCY INTERNAL QC INTERNAL QC VALID
[2017-07-22 20:19] LABS: ALANINE AMINOTRANSFERASE 17 U/L (12-78); ALBUMIN 3.5 g/dL (3.7-5.6); ALBUMIN/GLOBULIN RATIO 1.25; ALKALINE PHOSPHATASE 47 U/L (42-98); ANION GAP 11.7; ASPARTATE AMINO TRANSFERASE 15 U/L (5-30); BILIRUBIN,TOTAL 0.19 mg/dL (0.60-1.40); BLOOD UREA NITROGEN 10 mg/dL (7-18); BUN/CREATININE RATIO 16.66; CALCIUM 8.6 mg/dL (8.2-10.2); CARBON DIOXIDE 23 mmol/L (21-32); CHLORIDE 109 mmol/L (98-107); GLUCOSE 98 mg/dL (70-110); POTASSIUM 3.7 mmol/L (3.5-5.10); SODIUM 140 mmol/L (136-145); TOTAL PROTEIN 6.3 g/dL (6.4-8.2)
[2017-07-22 20:38] LABS: ACETAMINOPHEN < 3 ug/ml (10-30); SALICYLATE < 5.0 mg/dL (2.8-20.0)
[2017-07-22 22:34] LABS: BILIRUBIN,URINE Negative (NEGATIVE); KETONES,URINE Negative (NEGATIVE); LEUKOCYTE ESTERASE ,URINE Negative (NEGATIVE); NITRITE,URINE Negative (NEGATIVE); PH,URINE 7.5 (5-9); PROTEIN,URINE Trace (NEGATIVE); URINE, BLOOD Negative (NEGATIVE)
[2017-07-22 22:36] LABS: ADD URINE MICROSCOPIC YES
[2017-07-22 22:45] LABS: COCAIN SCREEN,URINE NEGATIVE (NEGATIVE)
--- NOTE | 2017-07-22 22:51 | ED.PDOC ---
General ED Provider: Dr. PAO GARRIDO-ER Chief Complaint: Psychiatric Complaint Stated Complaint: brought here for hallucinations Time Seen by Physician: 22:49 Mode of Arrival: Walk-In Information Source: Patient Exam Limitations: No limitations [facility] and Triage Documentation Reviewed and Agree: Yes Psychological Complaint Exam - Psychiatric Complaint/Exam Patient Complains Of: Present: Other Onset/Duration: several days Symptoms Are: Still present Timing: Constant Initial Severity: Mild Current Severity: Mild Character: Present: Fearful Aggravating: Reports: None Associated Signs And Symptoms: Reports: Paranoid behavior Patient Accompanied By: Mental Health Worker Patient In Custody Of Police: No Social Withdrawal Present: No Social Isolation Present: No Prior Suicide Attempt: No Injury From Prior Suicide Attempt: No Patient Uncooperative For Exam: No Mood: Present: Paranoid Appearance: Present: Clean Thought Process: Present: Logical Insight: Present: Poor Memory: Intact Judgement: Normal Danger To Others: No Patient Medically Stable For: Psych evaluation Review of Systems - Review Of Systems Constitutional: Reports: No symptoms Eyes: Reports: No symptoms Ears, Nose, Mouth, Throat: Reports: No symptoms Respiratory: Reports: No symptoms Cardiac: Reports: No symptoms GI: Reports: No symptoms : Reports: No symptoms Musculoskeletal: Reports: No symptoms Skin: Reports: No symptoms Neurological: Reports: No symptoms Endocrine: Reports: No symptoms Hematologic/Lymphatic: Reports: No symptoms All Other Systems: Reviewed and Negative Past Medical History - Past Medical History Previously Healthy: No Endocrine: Reports: None Cardiovascular: Reports: None Respiratory: Reports: None Hematological: Reports: None Gastrointestinal: Reports: GERD Genitourinary: Reports: None Neuro/Psych: Reports: Migraine, Anxiety, Depression Musculoskeletal: Reports: None Cancer: Reports: None Last Menstrual Period: 07/22/17 Other Pertinent Past Medical History: dep anx migr appy tonsils smoker - Surgical History General Surgical History: Reports: Appendectomy, Tonsillectomy - Family History Family History: Reports: Unknown - Social History Smoking Status: Current every day smoker, Heavy tobacco smoker Hx Substance Use: No Alcohol Screening: None - Immunizations Tetanus Shot up to Date: Yes Physical Exam - Physical Exam Appearance: Well-appearing, No pain distress, Well-nourished Eyes: ANGELA, EOMI, Conjunctiva clear ENT: Ears normal, Nose normal, Oropharynx normal Neck: Supple Respiratory: Airway patent, Breath sounds clear, Breath sounds equal, Respirations nonlabored Cardiovascular: RRR, Pulses normal, No rub, No murmur GI/: Soft, Nontender, No masses, Bowel sounds normal, No Organomegaly Musculoskeletal: Normal strength, ROM intact, No edema, No calf tenderness Skin: Warm, Dry, Normal color Neurological: Sensation intact, Motor intact, Reflexes intact, Cranial nerves intact, Alert, Oriented Psychiatric: Affect appropriate, Mood appropriate Interpretation - Radiology Interpretation Radiology Interpretation By: Radiologist Radiology Results: Negative Exam Interpreted: CT Scan Critical Care Note - Critical Care Note Total Time (mins): 0 Course - Course Hematology/Chemistry: 07/22/17 19:55 07/22/17 19:55 Orders, Labs, Meds: Lab Review 07/22/17 07/22/17 07/22/17 19:55 19:55 19:55 WBC 7.65 RBC 3.86 L Hgb 10.7 L Hct 31.9 L MCV 82.6 MCH 27.7 MCHC 33.5 RDW Coeff of Sj 15.1 H Plt Count 268 Immature Gran % (Auto) 0.1 Neut % (Auto) 50.4 Lymph % (Auto) 39.6 Banner % (Auto) 6.4 Eos % (Auto) 3.0 Baso % (Auto) 0.5 Immature Gran # (Auto) 0.0 Neut # 3.9 Lymph # 3.0 Banner # 0.5 Eos # 0.2 Baso # 0.0 Sodium 140 Potassium 3.7 Chloride 109 H Carbon Dioxide 23 Anion Gap 11.7 BUN 10 Creatinine 0.60 Estimated GFR (MDRD) 129.00 BUN/Creatinine Ratio 16.66 Glucose 98 Calcium 8.6 Total Bilirubin 0.19 L AST 15 ALT 17 Alkaline Phosphatase 47 Total Protein 6.3 L Albumin 3.5 L Globulin 2.8 Albumin/Globulin Ratio 1.25 TSH Serum , Qual Negative Urine Color Urine Clarity Urine pH Ur Specific [place] Urine Protein Urine Glucose (UA) Urine Ketones Urine Blood Urine Nitrite Urine Bilirubin Urine Urobilinogen Ur Leukocyte Esterase Ur Squamous Epith Cells Amorphous Sediment Urine Mucus Salicylate Level mg/dL Urine Opiates Screen Ur Oxycodone Screen Urine Methadone Screen Ur Propoxyphene Screen Acetaminophen Ur Barbiturates Screen U Tricyclic Antidepress Ur Phencyclidine Scrn Ur Amphetamine Screen U Methamphetamines Scrn U Benzodiazepines Scrn Urine Cocaine Screen U Cannabinoids Screen Plasma/Serum Alcohol < 10.0 07/22/17 07/22/17 07/22/17 19:55 22:29 22:29 WBC RBC Hgb Hct MCV MCH MCHC RDW Coeff of Sj Plt Count Immature Gran % (Auto) Neut % (Auto) Lymph % (Auto) Banner % (Auto) Eos % (Auto) Baso % (Auto) Immature Gran # (Auto) Neut # Lymph # Banner # Eos # Baso # Sodium Potassium Chloride Carbon Dioxide Anion Gap BUN Creatinine Estimated GFR (MDRD) BUN/Creatinine Ratio Glucose Calcium Total Bilirubin AST ALT Alkaline Phosphatase Total Protein Albumin Globulin Albumin/Globulin Ratio TSH 0.683 Serum , Qual Urine Color Yellow Urine Clarity Turbid Urine pH 7.5 Ur Specific [place] 1.020 Urine Protein Trace Urine Glucose (UA) Negative Urine Ketones Negative Urine Blood Negative Urine Nitrite Negative Urine Bilirubin Negative Urine Urobilinogen 0.2 Ur Leukocyte Esterase Negative Ur Squamous Epith Cells Not present Amorphous Sediment 4+ Urine Mucus Trace Salicylate Level mg/dL < 5.0 Urine Opiates Screen Negative Ur Oxycodone Screen Negative Urine Methadone Screen Negative Ur Propoxyphene Screen Negative Acetaminophen < 3 L Ur Barbiturates Screen Negative U Tricyclic Antidepress Negative Ur Phencyclidine Scrn Negative Ur Amphetamine Screen Negative U Methamphetamines Scrn Negative U Benzodiazepines Scrn Negative Urine Cocaine Screen Negative U Cannabinoids Screen Negative Plasma/Serum Alcohol Orders Category Date Time Status Consult Mental Health [ED MENTAL HEALTH CONSULT] .ONCE EMERGENCY 07/22/17 19: 45 Active BLOOD ALCOHOL Stat LAB 07/22/17 19:55 Completed CBC W/ AUTO DIFF Stat LAB 07/22/17 19:55 Completed COMPREHENSIVE METABOLIC PANEL Stat LAB 07/22/17 19:55 Completed SALICYLATE Stat LAB 07/22/17 19:55 Completed SERUM Stat LAB 07/22/17 19:55 Completed TSH [THYROID STIMULATING HORMONE] Stat LAB 07/22/17 19:55 Completed TYLENOL LEVEL [ACETAMINOPHEN] Stat LAB 07/22/17 19:55 Completed URINALYSIS C & S IF INDICATED Stat LAB 07/22/17 22:29 Completed URINE DRUG SCREEN (RAPID FOR ED) [DRUG SCREEN, URINE, LAB 07/22/17 22:29 Completed RAPID] Stat CT HEAD W/O CONTRAST Stat RADS 07/22/17 22:55 Ordered Vital Signs: Temp Pulse Resp BP Pulse Ox 07/22/17 18:07 98.2 F 89 20 119/73 99 Departure - Departure Time of Disposition: 22:55 Disposition: HOME SELF-CARE Discharge Problem: Hallucinations Instructions: Hallucinations (ED) Condition: Good Pt referred to PMD for follow-up: Yes Additional Instructions: f/u mental health--talk to your pcp about your anemia Allergies/Adverse Reactions: Allergies codeine Adverse Reaction (Verified 07/22/17 18:11) Vomiting nausea, vomit, itching morphine Adverse Reaction (Verified 07/22/17 18:11) ITCHING/VOMITING naproxen Adverse Reaction (Verified 07/22/17 18:11) Vomiting Home Medications: Ambulatory Orders Cholecalciferol (Vitamin D3) [Vitamin D3] 1,000 unit PO DAILY 07/08/17 Olanzapine [Zyprexa] 5 mg PO BEDTIME 07/08/17 Trazodone HCl 50 mg PO BEDTIME 07/08/17 Disposition Discussed With: Patient
--- NOTE | 2017-07-22 23:16 | CT ---
EXAM: CT head without contrast. HISTORY: Hallucinations. PROCEDURE: Contiguous axial CT images of the head without contrast with coronal and sagittal reforma ts. FINDINGS: The ventricles and basal cisterns are normal in size and configuration. No evidence of ma ss or midline shift. No intracranial hemorrhage or evidence of large vessel infarct. No extra-axial fluid collection. The paranasal sinuses and mastoid air cells are well-aerated. Impression: Negative CT of the head.
== END 2017-07-22 23:21 | disposition home or self-care (01) ==
LOC: ED 18:05
DX: R44.3 Hallucinations, unspecified (principal); D64.9 Anemia, unspecified; F17.210 Nicotine dependence, cigarettes, uncomplicated
CPT/HCPCS: 36415; 80053; 80306; 80307; 81001; 84443; 84703; 85025; 99283

== ENCOUNTER 2017-08-02 13:37 | Emergency (ER) ==
[2017-08-02 13:38] VITALS: BMI 20.2
[2017-08-02 13:42] VITALS: BP 120/73; TEMP 98.1
--- NOTE | 2017-08-02 17:00 | CT ---
EXAM: CTA CHEST (PE PROTOCOL) HISTORY: Chest pain TECHNIQUE: CTA chest with intravenous contrast. Multiplanar images were provided with 3-D reconstru ctions. 75 mL Omnipaque. COMPARISON: None FINDINGS: No pulmonary arterial filling defect. Normal thoracic aorta. Normal heart size with no pericardial effusion. Lungs are clear. Normal vascularity. No pneumothorax or pleural fluid. The bones are normal. A few mildly prominent bilateral axillary lymph nodes are nonspecific. IMPRESSION: 1. No pulmonary arterial thromboembolism. 2. Lungs are clear.
--- NOTE | 2017-08-02 17:47 | ED.PDOC ---
General ED Provider: Dr. PURNIMA ESQUIVEL Chief Complaint: Chest Wall Injury/Pain Stated Complaint: chest pain x1 month Time Seen by Physician: 14:00 (seen with priya at all times ) Mode of Arrival: Walk-In Information Source: Patient Exam Limitations: No limitations Primary Care Provider[facility] Nursing and Triage Documentation Reviewed and Agree: Yes Reviewed sepsis parameters & appropriate labs ordered?: Yes System Inflammatory Response Syndrome: Not Applicable Sepsis Protocol: For patient's 13 years and over: Temp is 96.8 and below OR 101 and greater Pulse >90 BPM Resp >20/minute Acutely Altered Mental Status Are patient's symptoms suggestive of a new infection, such as: -Pneumonia -Skin, Soft Tissue -Endocarditis -UTI -Bone, Joint Infection -Implantable Device -Acute Abdominal Infection -Wound Infection -Meningitis -Blood Stream Catheter Infection -Unknown Cardiovascular Complaint Exam - Chest Pain Complaint/Exam Onset: Gradual Duration: 1 month Symptoms Are: Still present Timing: Constant Initial Severity: Mild Current Severity: Mild Location: Reports: Diffuse Pain Radiates: Reports: Back Character: Reports: Dull, Aching Aggravating: Reports: None Alleviating: Reports: None Associated Signs and Symptoms: Reports: Back pain. Denies: Diaphoresis, Nausea , Vomiting, Fever, Palpitations, Cough, Hemoptysis, Abdominal pain, Dizziness, Short of air, Calf pain, Calf swelling Related History: Reports: Similar episode Related Surgical History: Reports: None History of Healthcare-Acquired Pneumonia: Reports: No AMI/ACS Risk Factors: Reports: None TAD Risk Factors: Reports: None Pulmonary Embolism Risk Factors: Reports: None Prior Care for this Complaint: No Recent Stress Test: No Recent Echo/LV Function: No JVD Present: No Subcutaneous Emphysema Present: No Diminshed Breath Sounds: No Reproducible Chest Wall Pain: No Bilateral Pulses Present: No If Risk Factors for AMI/ACS Consider: EKG, Cardiac Enzymes If Risk Factors for PE Consider: Chest CT with contrast Differential Diagnoses: Stable Angina, Chest Wall Pain, GI Diseasae, Pulmonary Embolism Quality Indicators For Acute MT or Cardiac Chest Pain: EKG in 10min. Review of Systems - Review Of Systems Constitutional: Reports: No symptoms Eyes: Reports: No symptoms Ears, Nose, Mouth, Throat: Reports: No symptoms Respiratory: Reports: No symptoms Cardiac: Reports: Chest pain GI: Reports: No symptoms : Reports: No symptoms Musculoskeletal: Reports: No symptoms Skin: Reports: No symptoms Neurological: Reports: No symptoms Endocrine: Reports: No symptoms Hematologic/Lymphatic: Reports: No symptoms All Other Systems: Reviewed and Negative Past Medical History - Past Medical History Previously Healthy: No Endocrine: Reports: None Cardiovascular: Reports: None Respiratory: Reports: None Hematological: Reports: None Gastrointestinal: Reports: GERD Genitourinary: Reports: None Neuro/Psych: Reports: Migraine, Anxiety, Depression Musculoskeletal: Reports: None Cancer: Reports: None Last Menstrual Period: 2 weeks ago Other Pertinent Past Medical History: dep anx migr appy tonsils smoker - Surgical History General Surgical History: Reports: Appendectomy, Tonsillectomy - Family History Family History: Reports: Unknown - Social History Smoking Status: Current every day smoker Hx Substance Use: No Alcohol Screening: None - Immunizations Tetanus Shot up to Date: Yes Physical Exam - Physical Exam Appearance: Well-appearing, No pain distress, Well-nourished Eyes: ANGELA, EOMI, Conjunctiva clear ENT: Ears normal, Nose normal, Oropharynx normal Respiratory: Airway patent, Breath sounds clear, Breath sounds equal, Respirations nonlabored Cardiovascular: RRR, Pulses normal, No rub, No murmur GI/: Soft, Nontender, No masses, Bowel sounds normal, No Organomegaly Musculoskeletal: Normal strength, ROM intact, No edema, No calf tenderness Skin: Warm, Dry, Normal color Neurological: Sensation intact, Motor intact, Reflexes intact, Cranial nerves intact, Alert, Oriented Psychiatric: Affect appropriate, Mood appropriate Interpretation - Radiology Interpretation Radiology Interpretation By: Radiologist Radiology Results: No acute changes Critical Care Note - Critical Care Note Total Time (mins): 0 Course - Course Hematology/Chemistry: 08/02/17 15:30 08/02/17 15:30 Orders, Labs, Meds: Lab Review 08/02/17 08/02/17 08/02/17 15:26 15:30 15:30 WBC 10.46 H RBC 4.22 Hgb 11.7 L Hct 35.5 L MCV 84.1 MCH 27.7 MCHC 33.0 RDW Coeff of Sj 14.6 Plt Count 266 Immature Gran % (Auto) 0.2 Neut % (Auto) 67.5 Lymph % (Auto) 25.2 [place] % (Auto) 4.9 Eos % (Auto) 1.8 Baso % (Auto) 0.4 Immature Gran # (Auto) 0.0 Neut # 7.1 H Lymph # 2.6 [place] # 0.5 Eos # 0.2 Baso # 0.0 Puncture Site Rr O2 Saturation 98.0 ABG pH 7.423 ABG pCO2 35.6 ABG pO2 99.0 ABG HCO3 23.3 ABG Total CO2 24 ABG Base Excess -1 Dwayne Test + FiO2 % 21.0 Sodium 139 Potassium 3.7 Chloride 108 H Carbon Dioxide 26 Anion Gap 8.7 BUN 7 Creatinine 0.58 L Estimated GFR (MDRD) 134.00 BUN/Creatinine Ratio 12.06 Glucose 68 L Calcium 8.9 Total Bilirubin 0.3 L AST 15 ALT 21 Alkaline Phosphatase 50 Total Creatine Kinase 52 Troponin I < 0.0100 Total Protein 6.4 Albumin 3.7 Globulin 2.7 Albumin/Globulin Ratio 1.37 Serum , Qual Urine Opiates Screen Ur Oxycodone Screen Urine Methadone Screen Ur Propoxyphene Screen Ur Barbiturates Screen U Tricyclic Antidepress Ur Phencyclidine Scrn Ur Amphetamine Screen U Methamphetamines Scrn U Benzodiazepines Scrn Urine Cocaine Screen U Cannabinoids Screen 08/02/17 08/02/17 15:30 17:13 WBC RBC Hgb Hct MCV MCH MCHC RDW Coeff of Sj Plt Count Immature Gran % (Auto) Neut % (Auto) Lymph % (Auto) [place] % (Auto) Eos % (Auto) Baso % (Auto) Immature Gran # (Auto) Neut # Lymph # [place] # Eos # Baso # Puncture Site O2 Saturation ABG pH ABG pCO2 ABG pO2 ABG HCO3 ABG Total CO2 ABG Base Excess Dwayne Test FiO2 % Sodium Potassium Chloride Carbon Dioxide Anion Gap BUN Creatinine Estimated GFR (MDRD) BUN/Creatinine Ratio Glucose Calcium Total Bilirubin AST ALT Alkaline Phosphatase Total Creatine Kinase Troponin I Total Protein Albumin Globulin Albumin/Globulin Ratio Serum , Qual Negative Urine Opiates Screen Negative Ur Oxycodone Screen Negative Urine Methadone Screen Negative Ur Propoxyphene Screen Negative Ur Barbiturates Screen Negative U Tricyclic Antidepress Negative Ur Phencyclidine Scrn Negative Ur Amphetamine Screen Negative U Methamphetamines Scrn Negative U Benzodiazepines Scrn Negative Urine Cocaine Screen Negative U Cannabinoids Screen Negative Orders Category Date Time Status ABG DRAW REQUEST Stat CARDIO 08/02/17 15:26 Completed EKG-(ED ONLY) Stat CARDIO 08/02/17 15:24 Completed NPO REMINDER: IMAGING ONCE CARE 08/02/17 15:26 Active ABG Stat LAB 08/02/17 15:26 Completed CBC W/ AUTO DIFF Stat LAB 08/02/17 15:30 Completed COMPREHENSIVE METABOLIC PANEL Stat LAB 08/02/17 15:30 Completed CREATINE KINASE Stat LAB 08/02/17 15:30 Completed SERUM Stat LAB 08/02/17 15:30 Completed TROPONIN I Stat LAB 08/02/17 15:30 Completed URINE DRUG SCREEN (RAPID FOR ED) [DRUG SCREEN, URINE, LAB 08/02/17 17:13 Completed RAPID] Stat CT CHEST PE PROTOCOL Stat RADS 08/02/17 15:25 Completed Vital Signs: Temp Pulse Resp BP Pulse Ox 08/02/17 13:39 98.1 F 91 H 16 120/73 98 BUTCH Risk Score BUTCH Risk Score: Risk Score Odds of by 30D 0 0.1 (0.1-0.2) 1 0.3 (0.2-0.3) 2 0.4 (0.3-0.5) 3 0.7 (0.6-0.9) 4 1.2 (1.0-1.5) 5 2.2 (1.9-2.6) 6 3.0 (2.5-3.6) 7 4.8 (3.8-6.1) Departure - Departure Time of Disposition: 17:47 Disposition: HOME SELF-CARE Discharge Problem: Chest wall pain, Chest pain, atypical Instructions: Chest Wall Pain (ED), Thoracic Pain (ED), Chest Pain (ED) Condition: Good Pt referred to PMD for follow-up: Yes Additional Instructions: Please call your Family Physician as soon as possible to schedule a follow-up appointment. Allergies/Adverse Reactions: Allergies codeine Adverse Reaction (Verified 08/02/17 14:47) Vomiting nausea, vomit, itching morphine Adverse Reaction (Verified 08/02/17 14:47) ITCHING/VOMITING naproxen Adverse Reaction (Verified 08/02/17 14:47) Vomiting Home Medications: Ambulatory Orders Cholecalciferol (Vitamin D3) [Vitamin D3] 1,000 unit PO DAILY 07/08/17 Olanzapine [Zyprexa] 5 mg PO BEDTIME 07/08/17 Trazodone HCl 50 mg PO BEDTIME 07/08/17
== END 2017-08-02 18:03 | disposition home or self-care (01) ==
LOC: ED 13:37
DX: R07.89 Other chest pain (principal); F17.210 Nicotine dependence, cigarettes, uncomplicated
CPT/HCPCS: 36415; 80053; 80306; 82550; 82803; 84484; 84703; 85025; 93005; 93010; 99283

== ENCOUNTER 2017-08-08 13:18 | Emergency (ER) ==
[2017-08-08 13:25] VITALS: BP 130/85; TEMP 98.2; BMI 23.4
--- NOTE | 2017-08-08 13:44 | ED.PDOC ---
General ED Provider: Dr. PURNIMA ESQUIVEL Chief Complaint: Tooth Problem Stated Complaint: dental pain Time Seen by Physician: 13:30 Mode of Arrival: Walk-In Information Source: Patient Exam Limitations: No limitations Primary Care Provider: [facility] Nursing and Triage Documentation Reviewed and Agree: Yes Reviewed sepsis parameters & appropriate labs ordered?: Yes System Inflammatory Response Syndrome: Not Applicable Sepsis Protocol: For patient's 13 years and over: Temp is 96.8 and below OR 101 and greater Pulse >90 BPM Resp >20/minute Acutely Altered Mental Status Are patient's symptoms suggestive of a new infection, such as: -Pneumonia -Skin, Soft Tissue -Endocarditis -UTI -Bone, Joint Infection -Implantable Device -Acute Abdominal Infection -Wound Infection -Meningitis -Blood Stream Catheter Infection -Unknown EENT Complaint Exam - Dental/Oral Complaint/Exam Mechanism of Injury: Trauma Onset/Duration: 3 days Symptoms Are: Still present Timing: Constant Initial Severity: Moderate Current Severity: Moderate Character: Reports: Throbbing Aggravating: Reports: Heat, Cold, Chewing Alleviating: Reports: None Associated Signs and Symptoms: Denies: Swelling, Discharge, Fever, Foul odor, Foul taste in mouth Related History: Reports: Similar episode Cardiac Risk Factors: Reports: None Dental/Oral Surgical History: Reports: None Facial Swelling Present: No Bleeding Present: No Septal Hematoma: No Foreign Body Present: No Dysphagia Present: No Drooling Present: No Asymmetrical Tonsillar Swelling Present: No Uvula Midline: Yes Lety-tonsillar Fluctuence: No Trismus Present: No Palatal Petechiae Present: No Scarlatinaform Rash Present: No Teeth Picture: 1 - decay Differential Diagnoses: Fractured Tooth Review of Systems - Review Of Systems Constitutional: Reports: No symptoms Eyes: Reports: No symptoms Ears, Nose, Mouth, Throat: Reports: No symptoms Respiratory: Reports: No symptoms Cardiac: Reports: No symptoms GI: Reports: No symptoms : Reports: No symptoms Musculoskeletal: Reports: No symptoms Skin: Reports: No symptoms Neurological: Reports: No symptoms Endocrine: Reports: No symptoms Hematologic/Lymphatic: Reports: No symptoms All Other Systems: Reviewed and Negative Past Medical History - Past Medical History Previously Healthy: No Endocrine: Reports: None Cardiovascular: Reports: None Respiratory: Reports: None Hematological: Reports: None Gastrointestinal: Reports: GERD Genitourinary: Reports: None Neuro/Psych: Reports: Migraine, Anxiety, Depression Musculoskeletal: Reports: None Cancer: Reports: None Last Menstrual Period: 3 WEEKS AGO Other Pertinent Past Medical History: dep anx migr appy tonsils smoker - Surgical History General Surgical History: Reports: Appendectomy, Tonsillectomy - Family History Family History: Reports: Unknown - Social History Smoking Status: Current every day smoker Hx Substance Use: No Alcohol Screening: None Physical Exam - Physical Exam Appearance: Well-appearing, No pain distress, Well-nourished Eyes: ANGELA, EOMI, Conjunctiva clear ENT: Ears normal, Nose normal, Oropharynx normal Respiratory: Airway patent, Breath sounds clear, Breath sounds equal, Respirations nonlabored Cardiovascular: RRR, Pulses normal, No rub, No murmur GI/: Soft, Nontender, No masses, Bowel sounds normal, No Organomegaly Musculoskeletal: Normal strength, ROM intact, No edema, No calf tenderness Skin: Warm, Dry, Normal color Neurological: Sensation intact, Motor intact, Reflexes intact, Cranial nerves intact, Alert, Oriented Psychiatric: Affect appropriate, Mood appropriate Critical Care Note - Critical Care Note Total Time (mins): 0 Course - Course Vital Signs: Temp Pulse Resp BP Pulse Ox 08/08/17 13:18 98.2 F 100 H 16 130/85 100 Departure - Departure Time of Disposition: 13:45 Disposition: HOME SELF-CARE Discharge Problem: Toothache Instructions: Toothache (ED) Condition: Good Pt referred to PMD for follow-up: Yes Additional Instructions: take medication as prescribed. follow up with your dentist and be sure to see oral surgeon. Prescriptions: Hydrocodone/Acetaminophen [[place] 5-325 Tablet] 1 each PO Q6HR PRN #12 tablet PRN Reason: PAIN Allergies/Adverse Reactions: Allergies codeine Adverse Reaction (Verified 08/08/17 13:22) Vomiting nausea, vomit, itching morphine Adverse Reaction (Verified 08/08/17 13:22) ITCHING/VOMITING naproxen Adverse Reaction (Verified 08/08/17 13:22) Vomiting Home Medications: Ambulatory Orders Cholecalciferol (Vitamin D3) [Vitamin D3] 1,000 unit PO DAILY 07/08/17 Olanzapine [Zyprexa] 5 mg PO BEDTIME 07/08/17 Trazodone HCl 50 mg PO BEDTIME 07/08/17 Clindamycin HCl 150 mg PO TID 08/08/17 Hydrocodone/Acetaminophen [[place] 5-325 Tablet] 1 each PO Q6HR PRN #12 tablet 08/25
== END 2017-08-08 13:43 | disposition home or self-care (01) ==
LOC: ED 13:18
DX: K08.89 Other specified disorders of teeth and supporting structures (principal); K02.7 Dental root caries; F17.210 Nicotine dependence, cigarettes, uncomplicated
CPT/HCPCS: 99282

== ENCOUNTER 2017-11-05 11:00 | Emergency (ER) ==
[2017-11-05 11:16] VITALS: BP 115/73; TEMP 96.9; BMI 22.1
--- NOTE | 2017-11-05 11:48 | ED.PDOC ---
General ED Provider: Dr. PURNIMA ESQUIVEL Chief Complaint: Nose Injury Stated Complaint: FACIAL INJURY Time Seen by Physician: 11:14 (SEEN WITH SEAN CAVANAUGH AT ALL TIMES ) Mode of Arrival: Walk-In Information Source: Patient Exam Limitations: No limitations, Other (FALL WAS DUE TO TRIPPING ) Primary Care Provider: JUAN ANTONIO [facility] Nursing and Triage Documentation Reviewed and Agree: Yes Reviewed sepsis parameters & appropriate labs ordered?: Yes ( NO HEAD INJURY NO LOC NO OTHER INJURY OFFERED ) System Inflammatory Response Syndrome: Not Applicable Sepsis Protocol: For patient's 13 years and over: Temp is 96.8 and below OR 101 and greater Pulse >90 BPM Resp >20/minute Acutely Altered Mental Status Are patient's symptoms suggestive of a new infection, such as: -Pneumonia -Skin, Soft Tissue -Endocarditis -UTI -Bone, Joint Infection -Implantable Device -Acute Abdominal Infection -Wound Infection -Meningitis -Blood Stream Catheter Infection -Unknown System Inflammatory Response Syndrome: Not Applicable Review of Systems - Review Of Systems Constitutional: Reports: No symptoms Eyes: Reports: No symptoms Ears, Nose, Mouth, Throat: Reports: No symptoms Respiratory: Reports: No symptoms Cardiac: Reports: No symptoms GI: Reports: No symptoms : Reports: No symptoms Musculoskeletal: Reports: Neck pain, Other (FACIAL INJURY SEE PHOTOS ABRASION FACE ). Denies: Back pain, Joint pain, Joint swelling, Muscle pain, Muscle stiffness Skin: Reports: No symptoms Neurological: Reports: No symptoms Endocrine: Reports: No symptoms Hematologic/Lymphatic: Reports: No symptoms All Other Systems: Reviewed and Negative Past Medical History - Past Medical History Previously Healthy: No Endocrine: Reports: None Cardiovascular: Reports: None Respiratory: Reports: None Hematological: Reports: None Gastrointestinal: Reports: GERD Genitourinary: Reports: None Neuro/Psych: Reports: Migraine, Anxiety, Depression Musculoskeletal: Reports: None Cancer: Reports: None Last Menstrual Period: 11/05/2017 Other Pertinent Past Medical History: dep anx migr appy tonsils smoker - Surgical History General Surgical History: Reports: Appendectomy, Tonsillectomy - Family History Family History: Reports: Unknown - Social History Smoking Status: Current every day smoker, Heavy tobacco smoker Hx Substance Use: No Alcohol Screening: None - Immunizations Tetanus Shot up to Date: Yes Physical Exam - Physical Exam Appearance: Well-appearing, No pain distress, Well-nourished Eyes: ANGELA, EOMI, Conjunctiva clear ENT: Ears normal, Nose normal, Oropharynx normal Respiratory: Airway patent, Breath sounds clear, Breath sounds equal, Respirations nonlabored Cardiovascular: RRR, Pulses normal, No rub, No murmur GI/: Soft, Nontender, No masses, Bowel sounds normal, No Organomegaly Musculoskeletal: Normal strength, ROM intact, No edema, No calf tenderness Skin: Warm, Dry (ABRASION OF FACE ) Neurological: Sensation intact, Motor intact, Reflexes intact, Cranial nerves intact, Alert, Oriented Psychiatric: Affect appropriate, Mood appropriate Critical Care Note - Critical Care Note Total Time (mins): 0 Course - Course Orders, Labs, Meds: Orders Category Date Time Status URINE Stat LAB 11/05/17 11:[address] CERVICAL SPINE W/O CONTRAST Stat RADS 11/05/17 11:[address] MAXILLOFACIAL W/O CONTRAST Stat RADS 11/05/17 11:16 Ordered Vital Signs: Temp Pulse Resp BP Pulse Ox 11/05/17 11:08 96.9 F L 96 H 18 115/73 98 Departure - Departure Time of Disposition: 13:00 (SEE PHOTOS PT SEEN WITH SEAN AT ALL TIMES ) Disposition: HOME SELF-CARE Discharge Problem: Facial injury Qualifiers: Encounter type: initial encounter Qualified Code(s): S09.93XA - Unspecified injury of face, initial encounter Abrasion of face Qualifiers: Encounter type: initial encounter Qualified Code(s): S00.81XA - Abrasion of other part of head, initial encounter Instructions: Abrasion (ED) Condition: Good Pt referred to PMD for follow-up: Yes IPMP verified?: No Additional Instructions: Please call your Family Physician as soon as possible to schedule a follow-up appointment. Allergies/Adverse Reactions: Allergies codeine Adverse Reaction (Verified 08/08/17 13:22) Vomiting nausea, vomit, itching morphine Adverse Reaction (Verified 08/08/17 13:22) ITCHING/VOMITING naproxen Adverse Reaction (Verified 08/08/17 13:22) Vomiting Home Medications: Ambulatory Orders Olanzapine [Zyprexa] 5 mg PO BEDTIME 07/08/17 Trazodone HCl 50 mg PO BEDTIME 07/08/17 Dextroamphetamine/Amphetamine [Adderall 30 mg Tablet] 75 mg PO DAILY 11/05/17 Diazepam [Valium] 10 mg PO QID 11/05/17
--- NOTE | 2017-11-05 12:25 | CT ---
EXAM: CT scan cervical spine HISTORY: Fall COMPARISON: None. FINDINGS: Contiguous axial images obtained through the cervical spine utilizing 2-mm collimation. S agittal and coronal reconstructions were imaged and reviewed.. The vertebral bodies are normal in he ight and alignment. The facet joints are intact. The central canal and foramen are patent throughou t. IMPRESSION: No acute findings
--- NOTE | 2017-11-05 12:25 | CT ---
EXAM: CT FACIAL BONES HISTORY: Fall, facial injury. TECHNIQUE: CT facial bones without contrast. 3-mm axial sections. Coronal and sagital reformations . FINDINGS: No facial bone fracture is identified. Orbits are intact. Intraorbital structures are pr eserved. There is irregularity of the anterior maxillary level teeth which may represent dental diana es. Less likely fractures. Correlate clinically. Paranasal sinuses are clear. Mastoid processes a re aerated. IMPRESSION: No facial fractures are identified. Deformities of the anterior maxillary level teeth may represent caries. Less likely fractures. Correlate clinically.
== END 2017-11-05 12:49 | disposition home or self-care (01) ==
LOC: ED 11:00
DX: S09.93XA Unspecified injury of face, initial encounter (principal); S00.81XA Abrasion of other part of head, initial encounter; W01.0XXA Fall on same level from slipping, tripping and stumbling without subsequent striking against object, initial encounter; F17.210 Nicotine dependence, cigarettes, uncomplicated
CPT/HCPCS: 81025; 99283

== ENCOUNTER 2017-11-28 15:09 | Emergency (ER) | payer OTHER ==
[2017-11-28 15:19] VITALS: BP 118/75; TEMP 96.9; BMI 22.3
--- NOTE | 2017-11-28 15:43 | ED.PDOC ---
General ED Provider: Dr. PURNIMA ESQUIVEL Chief Complaint: Tooth Problem Stated Complaint: dental pain Time Seen by Physician: 15:17 (see photos) Mode of Arrival: Walk-In Information Source: Patient Exam Limitations: No limitations Primary [facility] and T[facility] Documentation Reviewed and Agree: Yes Reviewed sepsis parameters & appropriate labs ordered?: Yes System Inflammatory Response Syndrome: Not Applicable Sepsis Protocol: For patient's 13 years and over: Temp is 96.8 and below OR 101 and greater Pulse >90 BPM Resp >20/minute Acutely Altered Mental Status Are patient's symptoms suggestive of a new infection, such as: -Pneumonia -Skin, Soft Tissue -Endocarditis -UTI -Bone, Joint Infection -Implantable Device -Acute Abdominal Infection -Wound Infection -Meningitis -Blood Stream Catheter Infection -Unknown System Inflammatory Response Syndrome: Not Applicable EENT Complaint Exam - Dental/Oral Complaint/Exam Mechanism of Injury: No known trauma Onset/Duration: 1week Symptoms Are: Still present Timing: Intermittent Initial Severity: Moderate Current Severity: Moderate Character: Reports: Aching, Throbbing Aggravating: Reports: Heat, Chewing Alleviating: Reports: None Associated Signs and Symptoms: Denies: Swelling, Discharge, Fever, Foul odor, Foul taste in mouth Related History: Reports: Similar episode Cardiac Risk Factors: Reports: None Dental/Oral Surgical History: Reports: None Tooth Findings: Present: Gross decay, Gross caries Cervical Lymphadenopathy Present: No Facial Swelling Present: Yes (see photos) Bleeding Present: No Septal Hematoma: No Foreign Body Present: No Dysphagia Present: No Drooling Present: No Asymmetrical Tonsillar Swelling Present: No Uvula Midline: Yes Lety-tonsillar Fluctuence: No Trismus Present: No Palatal Petechiae Present: No Scarlatinaform Rash Present: No Differential Diagnoses: Dental Caries, Fractured Tooth Review of Systems - Review Of Systems Constitutional: Reports: No symptoms Eyes: Reports: No symptoms Ears, Nose, Mouth, Throat: Reports: No symptoms Respiratory: Reports: No symptoms Cardiac: Reports: No symptoms GI: Reports: No symptoms : Reports: No symptoms Musculoskeletal: Reports: No symptoms Skin: Reports: No symptoms Neurological: Reports: No symptoms Endocrine: Reports: No symptoms Hematologic/Lymphatic: Reports: No symptoms All Other Systems: Reviewed and Negative Past Medical History - Past Medical History Previously Healthy: No Endocrine: Reports: None Cardiovascular: Reports: None Respiratory: Reports: None Hematological: Reports: None Gastrointestinal: Reports: GERD Genitourinary: Reports: None Neuro/Psych: Reports: Migraine, Anxiety, Depression Musculoskeletal: Reports: None Cancer: Reports: None Last Menstrual Period: now Other Pertinent Past Medical History: dep anx migr appy tonsils smoker - Surgical History General Surgical History: Reports: Appendectomy, Tonsillectomy - Family History Family History: Reports: Unknown - Social History Smoking Status: Current every day smoker, Light tobacco smoker Hx Substance Use: No Alcohol Screening: None Physical Exam - Physical Exam Appearance: Well-appearing, No pain distress, Well-nourished Eyes: ANGELA, EOMI, Conjunctiva clear ENT: Ears normal, Nose normal, Oropharynx normal Respiratory: Airway patent, Breath sounds clear, Breath sounds equal, Respirations nonlabored Cardiovascular: RRR, Pulses normal, No rub, No murmur GI/: Soft, Nontender, No masses, Bowel sounds normal, No Organomegaly Musculoskeletal: Normal strength, ROM intact, No edema, No calf tenderness Skin: Warm, Dry, Normal color Neurological: Sensation intact, Motor intact, Reflexes intact, Cranial nerves intact, Alert, Oriented Psychiatric: Affect appropriate, Mood appropriate Critical Care Note - Critical Care Note Total Time (mins): 0 Course - Course Vital Signs: Temp Pulse Resp BP Pulse Ox 11/28/17 15:13 96.9 F L 104 H 20 118/75 98 Departure - Departure Time of Disposition: 15:43 Disposition: HOME SELF-CARE Discharge Problem: Toothache Instructions: Toothache (ED) Condition: Good Pt referred to PMD for follow-up: Yes IPMP verified?: No Additional Instructions: Please call your Family Physician as soon as possible to schedule a follow-up appointment. Prescriptions: Hydrocodone/Acetaminophen [[place] 10-325 Tablet] 1 each PO Q8HR #10 tablet Allergies/Adverse Reactions: Allergies codeine Adverse Reaction (Verified 11/28/17 15:19) Vomiting nausea, vomit, itching morphine Adverse Reaction (Verified 11/28/17 15:19) ITCHING/VOMITING naproxen Adverse Reaction (Verified 11/28/17 15:19) Vomiting Home Medications: Ambulatory Orders Olanzapine [Zyprexa] 5 mg PO BEDTIME 07/08/17 Trazodone HCl 50 mg PO BEDTIME 07/08/17 Dextroamphetamine/Amphetamine [Adderall 30 mg Tablet] 75 mg PO DAILY 03/31/18 Diazepam [Valium] 10 mg PO QID 11/05/17 Amoxicillin 500 mg PO Q8HR 11/28/17 Hydrocodone/Acetaminophen [[place] 10-325 Tablet] 1 each PO Q8HR #10 tablet Disposition Discussed With: Patient
== END 2017-11-28 15:49 | disposition home or self-care (01) ==
LOC: ED 15:09
DX: K08.89 Other specified disorders of teeth and supporting structures (principal); K02.7 Dental root caries; F17.210 Nicotine dependence, cigarettes, uncomplicated
CPT/HCPCS: 99282

== ENCOUNTER 2018-01-02 03:02 | Outpatient (CLI) ==
[2018-01-02 03:10] VITALS: BMI 20.2
== END 2018-01-02 03:07 | disposition short-term general hospital (02) ==
LOC: AMBL 03:02
PROVIDERS: ATTEND Internal Medicine Geriatric Medicine
DX: R44.3 Hallucinations, unspecified (principal); K08.89 Other specified disorders of teeth and supporting structures

== ENCOUNTER 2018-01-02 03:09 | Emergency (ER) | END 2018-01-02 03:10 | disposition left against medical advice (07) | LOC: ED 03:09 | DX: F99 Mental disorder, not otherwise specified (principal) | CPT/HCPCS: 99281 ==

== ENCOUNTER → 2018-01-04 | Emergency (ER) ==
[2018-01-04 12:49] VITALS: BP 108/72; TEMP 96.8
== END ==
LOC: ED 12:42
DX: K08.89 Other specified disorders of teeth and supporting structures (principal); K02.7 Dental root caries; F17.210 Nicotine dependence, cigarettes, uncomplicated

== ENCOUNTER 2018-01-16 16:11 | Outpatient (CLI) ==
[2018-01-04 12:49] VITALS: BMI 21.1
== END 2018-01-16 16:12 | disposition home or self-care (01) ==
LOC: RHC-LAB 16:11
PROVIDERS: ATTEND Nurse Practitioner Family
DX: Z75.1 Person awaiting admission to adequate facility elsewhere (principal)
CPT/HCPCS: 36415; 80053; 80074; 81001; 84703; 86592; 86631; 86695; 86696; 87389; 87800

== ENCOUNTER 2018-01-21 12:36 | Emergency (ER) ==
[2018-01-21 12:39] VITALS: BP 102/70; TEMP 97.8; BMI 21.2
--- NOTE | 2018-01-21 15:16 | ED.PDOC ---
General ED Provider: Dr. PAO HUNTER Chief Complaint: Tooth Problem Stated Complaint: Severe mutifocal teeth aching. Advance dental caries to majority of teeth in her mouth with several inadvance state of decay resulting in severe pain Time Seen by Physician: 15:05 Mode of Arrival: Walk-In Information Source: Patient Exam Limitations: No limitations [facility] Nursing and Triage Documentation Reviewed and Agree: Yes Reviewed sepsis parameters & appropriate labs ordered?: Yes System Inflammatory Response Syndrome: Not Applicable Sepsis Protocol: For patient's 13 years and over: Temp is 96.8 and below OR 101 and greater Pulse >90 BPM Resp >20/minute Acutely Altered Mental Status Are patient's symptoms suggestive of a new infection, such as: -Pneumonia -Skin, Soft Tissue -Endocarditis -UTI -Bone, Joint Infection -Implantable Device -Acute Abdominal Infection -Wound Infection -Meningitis -Blood Stream Catheter Infection -Unknown EENT Complaint Exam - Dental/Oral Complaint/Exam Mechanism of Injury: No known trauma Symptoms Are: Still present Timing: Constant Initial Severity: Severe Current Severity: Severe Character: Reports: Aching, Throbbing Aggravating: Reports: Cold, Chewing Alleviating: Reports: None Associated Signs and Symptoms: Reports: Swelling Related History: Reports: Similar episode Cardiac Risk Factors: Reports: None Dental/Oral Surgical History: Reports: None Tooth Findings: Present: Percussion tenderness, Gross decay, Gross caries, Dental fracture, Abcess, Cellulitis Cervical Lymphadenopathy Present: No Facial Swelling Present: Yes Bleeding Present: No Septal Hematoma: No Foreign Body Present: No Dysphagia Present: No Drooling Present: No Asymmetrical Tonsillar Swelling Present: No Uvula Midline: No Lety-tonsillar Fluctuence: No Trismus Present: No Palatal Petechiae Present: No Scarlatinaform Rash Present: No Lesions: Present: Gums Exanthem: Absent: Lip, Gums, Tongue, Buccal Mucosa Vesicles: Absent: Lip, Gums, Tongue, Buccal Mucosa, Pharynx Differential Diagnoses: Dental Caries, Fractured Tooth, Gingivitis, Other (poor dention) Review of Systems - Review Of Systems Constitutional: Reports: No symptoms Eyes: Reports: No symptoms Ears, Nose, Mouth, Throat: Reports: No symptoms, Mouth pain, Loose teeth Respiratory: Reports: No symptoms Cardiac: Reports: No symptoms GI: Reports: No symptoms : Reports: No symptoms Musculoskeletal: Reports: No symptoms Skin: Reports: No symptoms Neurological: Reports: No symptoms Endocrine: Reports: No symptoms Hematologic/Lymphatic: Reports: No symptoms All Other Systems: Reviewed and Negative Past Medical History - Past Medical History Previously Healthy: No Endocrine: Reports: None Cardiovascular: Reports: None Respiratory: Reports: None Hematological: Reports: None Gastrointestinal: Reports: GERD Genitourinary: Reports: None Neuro/Psych: Reports: Migraine, Anxiety, Depression Musculoskeletal: Reports: None Cancer: Reports: None Last Menstrual Period: december 25 Other Pertinent Past Medical History: dep anx migr appy tonsils smoker - Surgical History General Surgical History: Reports: Appendectomy, Tonsillectomy - Family History Family History: Reports: Unknown - Social History Smoking Status: Current every day smoker, Light tobacco smoker Hx Substance Use: Yes (meth) Alcohol Screening: None Lives: With family Physical Exam - Physical Exam Appearance: Ill-appearing, Thin Ill-appearing: Moderate Pain Distress: Severe Eyes: ANGELA, EOMI, Conjunctiva clear ENT: Ears normal, Nose normal, Oropharynx normal (Multiple ) Neck: Supple Respiratory: Airway patent, Breath sounds clear, Breath sounds equal, Respirations nonlabored Cardiovascular: RRR, Pulses normal, No rub, No murmur GI/: Soft, Nontender, No masses, Bowel sounds normal, No Organomegaly Musculoskeletal: Normal strength, ROM intact, No edema, No calf tenderness Skin: Warm, Dry, Normal color Neurological: Sensation intact, Motor intact, Reflexes intact, Cranial nerves intact, Alert, Oriented Interpretation - Radiology Interpretation Radiology Interpretation By: Radiologist Exam Interpreted: CT Scan Xray Comments: dental caries Re-Evaluation - Re-Evaluation Time of Re-Evaluation: 15:50 Status: Improved Vital Signs Stable: Yes Pain Level: 4/10 Appearance: NAD Lungs: Clear Skin: Warm and Dry Neuro: Alert and Oriented X3 CV: RRR Critical Care Note - Critical Care Note Total Time (mins): 0 Course - Course Vital Signs: Temp Pulse Resp BP Pulse Ox 01/21/18 12:36 97.8 F 99 H 16 102/70 96 Departure - Departure Time of Disposition: 15:50 Disposition: HOME SELF-CARE Discharge Problem: Dental caries noted on examination, Tooth pain, Poor dentition, Gingivitis Instructions: Toothache (ED), Dry Mouth (ED), Periodontal Disease (DC) Condition: Good Pt referred to PMD for follow-up: Yes IPMP verified?: No Prescriptions: Amoxicillin/Potassium Clav [Augmentin 875-125 Tablet] 1 each PO BID #14 tablet Allergies/Adverse Reactions: Allergies codeine Adverse Reaction (Verified 01/21/18 12:40) Vomiting nausea, vomit, itching morphine Adverse Reaction (Verified 01/21/18 12:40) ITCHING/VOMITING naproxen Adverse Reaction (Verified 01/21/18 12:40) Vomiting Home Medications: Ambulatory Orders Olanzapine [Zyprexa] 5 mg PO BEDTIME 07/08/17 Trazodone HCl 50 mg PO BEDTIME 07/08/17 Dextroamphetamine/Amphetamine [Adderall 30 mg Tablet] 75 mg PO DAILY 11/05/17 Diazepam [Valium] 10 mg PO QID 11/05/17 Amoxicillin/Potassium Clav [Augmentin 875-125 Tablet] 1 each PO BID #14 tablet 01/21/18 Hydrocodone/Acetaminophen [[place] 5-325 Tablet] 1 each PO Q6HR PRN #10 tablet Disposition Discussed With: Patient
[2018-01-21] MEDS: NORCO 5-325 PO STA (15:34)
--- NOTE | 2018-01-21 15:45 | CT ---
EXAM: Maxillofacial CT contrast TECHNIQUE: Helical axial maxillofacial CT was performed contrast with coronal and sagittal reconstr uctions. COMPARISON: Maxillofacial CT from 11/05/2017 HISTORY: Multiple dental caries with pain FINDINGS: There are multiple dental caries seen. There are no periapical lucencies or abscess is matilda ntified. There is no acute soft tissue abnormality seen in the face. Specifically there is no inflam mation or mass or abscess or pathologic adenopathy. The fat planes of the deep face are symmetric an d normal. The floor the mouth is symmetric. The airway is widely patent. There are no acute or chr onic osseous abnormalities. The visualized portion of the mastoid air cells and middle ear cavities are clear. The visualized intracranial contents are normal. The orbits are symmetric and unremar kable. The visualized paranasal sinuses show some membrane thickening but no air-fluid levels. The temporomandibular joints are symmetric. IMPRESSION: 1. Multiple dental caries with no evidence for periapical abscess.
== END 2018-01-21 16:09 | disposition home or self-care (01) ==
LOC: ED 12:36
DX: K02.7 Dental root caries (principal); K08.89 Other specified disorders of teeth and supporting structures; K05.10 Chronic gingivitis, plaque induced; K04.7 Periapical abscess without sinus; F17.210 Nicotine dependence, cigarettes, uncomplicated
CPT/HCPCS: 99282

== ENCOUNTER 2018-02-27 12:52 | Emergency (ER) | payer OTHER ==
[2018-02-27 13:02] VITALS: BP 107/70; TEMP 97.6; BMI 21.9
--- NOTE | 2018-02-27 13:13 | ED.PDOC ---
General ED Provider: Dr. PURNIMA ESQUIVEL Chief Complaint: Tooth Problem Stated Complaint: dental pain Time Seen by Physician: 13:00 (seen with BK RN/ ROYCE RN) Mode of Arrival: Walk-In Information Source: Patient Exam Limitations: No limitations Primary Care Provider: JUAN ANTONIO SILVER Referred to ED by: Other (CHRONIC DENTAL ISSUE) Nursing and Triage Documentation Reviewed and Agree: Yes Does patient meet sepsis criteria?: Yes If yes, has appropriate treatment been initiated?: No System Inflammatory Response Syndrome: Not Applicable Sepsis Protocol: For patient's 13 years and over: Temp is 96.8 and below OR 101 and greater Pulse >90 BPM Resp >20/minute Acutely Altered Mental Status Are patient's symptoms suggestive of a new infection, such as: -Pneumonia -Skin, Soft Tissue -Endocarditis -UTI -Bone, Joint Infection -Implantable Device -Acute Abdominal Infection -Wound Infection -Meningitis -Blood Stream Catheter Infection -Unknown EENT Complaint Exam - Dental/Oral Complaint/Exam Mechanism of Injury: No known trauma Onset/Duration: CHRONIC Symptoms Are: Still present Timing: Intermittent Initial Severity: Moderate Current Severity: Moderate Character: Reports: Aching, Throbbing Aggravating: Reports: Heat, Cold Alleviating: Reports: None Associated Signs and Symptoms: Denies: Swelling, Discharge, Fever, Foul odor, Foul taste in mouth Related History: Reports: Similar episode Cardiac Risk Factors: Reports: None Dental/Oral Surgical History: Reports: None Cervical Lymphadenopathy Present: Yes Facial Swelling Present: No Bleeding Present: No Oropharynx Findings: Absent: Clots, Active bleeding Septal Hematoma: No Foreign Body Present: No Dysphagia Present: No Drooling Present: No Asymmetrical Tonsillar Swelling Present: No Uvula Midline: No Lety-tonsillar Fluctuence: No Trismus Present: No Palatal Petechiae Present: No Scarlatinaform Rash Present: No Lesions: Absent: Lip, Gums, Tongue, Buccal Mucosa, Pharynx Exanthem: Absent: Lip, Gums, Tongue, Buccal Mucosa, Pharynx Vesicles: Absent: Lip, Gums, Tongue, Buccal Mucosa, Pharynx Teeth Picture: 1 - WIDESPREAD DECAY Differential Diagnoses: Dental Caries, Fractured Tooth Review of Systems - Review Of Systems Constitutional: Reports: No symptoms Eyes: Reports: No symptoms Ears, Nose, Mouth, Throat: Reports: No symptoms Respiratory: Reports: No symptoms Cardiac: Reports: No symptoms GI: Reports: No symptoms : Reports: No symptoms Musculoskeletal: Reports: No symptoms Skin: Reports: No symptoms Neurological: Reports: No symptoms Endocrine: Reports: No symptoms Hematologic/Lymphatic: Reports: No symptoms All Other Systems: Reviewed and Negative Past Medical History - Past Medical History Previously Healthy: No Endocrine: Reports: None Cardiovascular: Reports: None Respiratory: Reports: None Hematological: Reports: None Gastrointestinal: Reports: GERD Genitourinary: Reports: None Neuro/Psych: Reports: Migraine, Anxiety, Depression Musculoskeletal: Reports: None Cancer: Reports: None Last Menstrual Period: 2 weeks Other Pertinent Past Medical History: dep anx migr appy tonsils smoker - Surgical History General Surgical History: Reports: Appendectomy, Tonsillectomy - Family History Family History: Reports: Unknown - Social History Smoking Status: Current every day smoker, Light tobacco smoker Hx Substance Use: Yes (meth) Alcohol Screening: None Physical Exam - Physical Exam Appearance: Well-appearing, No pain distress, Well-nourished Eyes: ANGELA, EOMI, Conjunctiva clear ENT: Ears normal, Nose normal, Oropharynx normal Respiratory: Airway patent, Breath sounds clear, Breath sounds equal, Respirations nonlabored Cardiovascular: RRR, Pulses normal, No rub, No murmur GI/: Soft, Nontender, No masses, Bowel sounds normal, No Organomegaly Musculoskeletal: Normal strength, ROM intact, No edema, No calf tenderness Skin: Warm, Dry, Normal color Neurological: Sensation intact, Motor intact, Reflexes intact, Cranial nerves intact, Alert, Oriented Psychiatric: Affect appropriate, Mood appropriate Critical Care Note - Critical Care Note Total Time (mins): 0 Course - Course Vital Signs: Temp Pulse Resp BP Pulse Ox 02/27/18 12:55 97.6 F 89 20 107/70 98 Departure - Departure Time of Disposition: 13:14 Disposition: HOME SELF-CARE Discharge Problem: Toothache Instructions: Toothache (ED) Condition: Good Pt referred to PMD for follow-up: Yes IPMP verified?: No Additional Instructions: Please call your Family Physician as soon as possible to schedule a follow-up appointment. Prescriptions: Hydrocodone/Acetaminophen [[place] 5-325 Tablet] 1 each PO Q6HR PRN #10 tablet PRN Reason: PAIN Amoxicillin 500 mg PO Q8HR #21 tablet Allergies/Adverse Reactions: Allergies codeine Adverse Reaction (Verified 02/27/18 13:03) Vomiting nausea, vomit, itching morphine Adverse Reaction (Verified 02/27/18 13:03) ITCHING/VOMITING naproxen Adverse Reaction (Verified 02/27/18 13:03) Vomiting Home Medications: Ambulatory Orders Olanzapine [Zyprexa] 5 mg PO BEDTIME 07/08/17 Trazodone HCl 50 mg PO BEDTIME 07/08/17 Dextroamphetamine/Amphetamine [Adderall 30 mg Tablet] 75 mg PO DAILY 11/05/17 Amoxicillin 500 mg PO Q8HR #21 tablet 02/27/18 Hydrocodone/Acetaminophen [[place] 5-325 Tablet] 1 each PO Q6HR PRN #10 tablet
== END 2018-02-27 13:20 | disposition home or self-care (01) ==
LOC: ED 12:52
DX: K08.89 Other specified disorders of teeth and supporting structures (principal); K02.7 Dental root caries; F17.210 Nicotine dependence, cigarettes, uncomplicated
CPT/HCPCS: 99282

== ENCOUNTER 2018-03-04 18:45 | Emergency (ER) ==
[2018-03-04 18:47] VITALS: BP 109/69; TEMP 98.4; BMI 23.0
[2018-03-04] MEDS ORDERED: AMOXIL PO STA (19:52)
[2018-03-04] MEDS ORDERED: ULTRAM PO STA (19:53)
--- NOTE | 2018-03-04 19:58 | ED.PDOC ---
General ED Provider: Dr. ANYA HAWLEY Chief Complaint: Tooth Problem Stated Complaint: Patient comes to the ER with complains of diffuse dental caries with pain. Time Seen by Physician: 19:30 Mode of Arrival: Walk-In Information Source: Patient Exam Limitations: No limitations Primary Care Provider: JUAN ANTONIO [facility] Nursing and Triage Documentation Reviewed and Agree: Yes Does patient meet sepsis criteria?: No System Inflammatory Response Syndrome: Not Applicable Sepsis Protocol: For patient's 13 years and over: Temp is 96.8 and below OR 101 and greater Pulse >90 BPM Resp >20/minute Acutely Altered Mental Status Are patient's symptoms suggestive of a new infection, such as: -Pneumonia -Skin, Soft Tissue -Endocarditis -UTI -Bone, Joint Infection -Implantable Device -Acute Abdominal Infection -Wound Infection -Meningitis -Blood Stream Catheter Infection -Unknown EENT Complaint Exam - Dental/Oral Complaint/Exam Mechanism of Injury: No known trauma Onset/Duration: weeks Symptoms Are: Still present Timing: Constant Initial Severity: Moderate Current Severity: Moderate Location: upper teeth mostly Character: Reports: Aching, Throbbing Aggravating: Reports: None Alleviating: Reports: None Associated Signs and Symptoms: Reports: Swelling, Foul odor, Foul taste in mouth. Denies: Discharge, Fever Related History: Reports: Previous tooth problem, Third molars absent Cardiac Risk Factors: Reports: None Dental/Oral Surgical History: Reports: None Tooth Findings: Present: Percussion tenderness, Gross decay, Gross caries, Dental fracture Cervical Lymphadenopathy Present: No Facial Swelling Present: No Bleeding Present: No Oropharynx Findings: Absent: Clots, Active bleeding Septal Hematoma: No Foreign Body Present: No Dysphagia Present: No Drooling Present: No Asymmetrical Tonsillar Swelling Present: No Uvula Midline: No Lety-tonsillar Fluctuence: No Trismus Present: No Palatal Petechiae Present: No Scarlatinaform Rash Present: No Lesions: Present: Gums Teeth Picture: 1 - gross decay Differential Diagnoses: Dental Abcess, Dental Caries Review of Systems - Review Of Systems Constitutional: Reports: No symptoms Eyes: Reports: No symptoms Ears, Nose, Mouth, Throat: Reports: Mouth pain, Mouth swelling, Loose teeth Respiratory: Reports: No symptoms Cardiac: Reports: No symptoms GI: Reports: No symptoms : Reports: No symptoms Musculoskeletal: Reports: No symptoms Skin: Reports: No symptoms Neurological: Reports: No symptoms Endocrine: Reports: No symptoms Hematologic/Lymphatic: Reports: No symptoms All Other Systems: Reviewed and Negative Past Medical History - Past Medical History Previously Healthy: No Endocrine: Reports: None Cardiovascular: Reports: None Respiratory: Reports: None Hematological: Reports: None Gastrointestinal: Reports: GERD Genitourinary: Reports: None Neuro/Psych: Reports: Migraine, Anxiety, Depression Musculoskeletal: Reports: None Cancer: Reports: None Last Menstrual Period: 2 weeks ago Other Pertinent Past Medical History: dep anx migr appy tonsils smoker - Surgical History General Surgical History: Reports: Appendectomy, Tonsillectomy - Family History Family History: Reports: Unknown - Social History Smoking Status: Current every day smoker, Light tobacco smoker Hx Substance Use: Yes (meth) Alcohol Screening: None Physical Exam - Physical Exam Appearance: Ill-appearing Ill-appearing: Mild Pain Distress: Moderate Eyes: ANGELA, EOMI Neck: Supple Respiratory: Airway patent, Breath sounds clear, Breath sounds equal, Respirations nonlabored Cardiovascular: RRR, Pulses normal, No rub, No murmur GI/: Soft, Nontender, No masses, Bowel sounds normal, No Organomegaly Musculoskeletal: Normal strength Skin: Warm, Dry Psychiatric: Anxious Critical Care Note - Critical Care Note Total Time (mins): 0 Course - Course Orders, Labs, Meds: Orders Category Date Time Status Amoxicillin [Amoxil] MEDS 03/04/18 19:52 Stat 500 mg PO ONCE STA Tramadol HCl [Ultram] MEDS 03/04/18 19:53 Stat 50 mg PO ONCE STA Medications Discontinued Medications Generic Name Dose Route Start Last Admin Trade Name Freq PRN Reason Stop Dose Admin Amoxicillin 500 mg 03/04/18 19:52 Amoxil PO 03/04/18 19:53 ONCE STA Tramadol HCl 50 mg 03/04/18 19:53 Ultram PO 03/04/18 19:54 ONCE STA Vital Signs: Temp Pulse Resp BP Pulse Ox 03/04/18 18:45 98.4 F 98 H 18 109/69 99 Departure - Departure Time of Disposition: 20:17 Disposition: HOME SELF-CARE Discharge Problem: Dental caries, Gingivitis Instructions: Toothache (ED), Gingivitis (ED) Condition: Fair Pt referred to PMD for follow-up: Yes IPMP verified?: No Additional Instructions: Take Medications as Prescribed Follow up with your dentist in 3 days Prescriptions: Amoxicillin [Amoxil] 500 mg PO TID #30 capsule Ibuprofen [Motrin] 600 mg PO Q6H PRN #20 tablet PRN Reason: Analgesia Tramadol HCl [Ultram] 50 mg PO Q6H PRN #10 tablet PRN Reason: Severe Pain Allergies/Adverse Reactions: Allergies codeine Adverse Reaction (Verified 03/04/18 18:48) Vomiting nausea, vomit, itching morphine Adverse Reaction (Verified 03/04/18 18:48) ITCHING/VOMITING naproxen Adverse Reaction (Verified 03/04/18 18:48) Vomiting Home Medications: Ambulatory Orders Olanzapine [Zyprexa] 5 mg PO BEDTIME 07/08/17 Trazodone HCl 50 mg PO BEDTIME 07/08/17 Dextroamphetamine/Amphetamine [Adderall 30 mg Tablet] 75 mg PO DAILY 11/05/17 Amoxicillin [Amoxil] 500 mg PO TID #30 capsule 03/04/18 Ibuprofen [Motrin] 600 mg PO Q6H PRN #20 tablet 03/04/18 Tramadol HCl [Ultram] 50 mg PO Q6H PRN #10 tablet 03/04/18 Disposition Discussed With: Patient, Family
== END 2018-03-04 20:15 | disposition home or self-care (01) ==
LOC: ED 18:45
DX: K02.7 Dental root caries (principal); K05.10 Chronic gingivitis, plaque induced; F17.210 Nicotine dependence, cigarettes, uncomplicated
CPT/HCPCS: 99282

== ENCOUNTER 2018-03-15 14:26 | Emergency (ER) ==
[2018-03-15 14:31] VITALS: BP 102/69; TEMP 98; BMI 23.9
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
== END 2018-03-15 14:53 | disposition home or self-care (01) ==
LOC: ED 14:26
DX: T07.XXXA Unspecified multiple injuries, initial encounter (principal); M79.605 Pain in left leg; M79.604 Pain in right leg; S70.11XA Contusion of right thigh, initial encounter
CPT/HCPCS: 99281

== ENCOUNTER 2018-04-30 17:40 | Emergency (ER) ==
[2018-04-30 17:40] VITALS: BMI 23.9
[2018-04-30 17:44] VITALS: BP 157/77; TEMP 98.2
--- NOTE | 2018-04-30 18:19 | ED.PDOC ---
General ED Provider: Dr. PAO GARRIDO-ER Chief Complaint: Extremity Pain/Injury Stated Complaint: i was playing basketball and fell Time Seen by Physician: 17:45 Mode of Arrival: Walk-In Information Source: Patient Exam Limitations: No limitations Primary Care Provider: JUAN ANTONIO [facility] Nursing and Triage Documentation Reviewed and Agree: Yes Does patient meet sepsis criteria?: No System Inflammatory Response Syndrome: Not Applicable Sepsis Protocol: For patient's 13 years and over: Temp is 96.8 and below OR 101 and greater Pulse >90 BPM Resp >20/minute Acutely Altered Mental Status Are patient's symptoms suggestive of a new infection, such as: -Pneumonia -Skin, Soft Tissue -Endocarditis -UTI -Bone, Joint Infection -Implantable Device -Acute Abdominal Infection -Wound Infection -Meningitis -Blood Stream Catheter Infection -Unknown Musculoskeletal Complaint Exam - Upper Extremity Complaint/Exam Location of Pain: Reports: Shoulder Mechanism of Injury: Reports: Trauma Onset/Duration: 2 days Symptoms Are: Still present Initial Severity: Mild Current Severity: Mild Location: Reports: Discrete Character: Reports: Dull, Aching, Throbbing, Stiffness Aggravating: Reports: Movement, Lifting, Flexion, Extension Alleviating: Reports: None Non-Orthopedic Risk Factors: Reports: None Septic Arthritis Risk Factors: Reports: None Related Surgical History: Reports: None Upper Extremity Findings: Present: Tenderness NV Bundle Intact Distal to Injury: Yes Compartment Syndrome Risk Factors: Present: Pain Differential Diagnoses: Contusion, Closed Fracure Review of Systems - Review Of Systems Constitutional: Reports: No symptoms Eyes: Reports: No symptoms Ears, Nose, Mouth, Throat: Reports: No symptoms Respiratory: Reports: No symptoms Cardiac: Reports: No symptoms GI: Reports: No symptoms : Reports: No symptoms Musculoskeletal: Reports: Joint pain, Muscle pain Skin: Reports: No symptoms Neurological: Reports: No symptoms Endocrine: Reports: No symptoms Hematologic/Lymphatic: Reports: No symptoms All Other Systems: Reviewed and Negative Past Medical History - Past Medical History Previously Healthy: No Endocrine: Reports: None Cardiovascular: Reports: None Respiratory: Reports: None Hematological: Reports: None Gastrointestinal: Reports: GERD Genitourinary: Reports: None Neuro/Psych: Reports: Migraine, Anxiety, Depression Musculoskeletal: Reports: None Cancer: Reports: None Last Menstrual Period: 04/20/18 Other Pertinent Past Medical History: dep anx migr appy tonsils smoker - Surgical History General Surgical History: Reports: Appendectomy, Tonsillectomy - Family History Family History: Reports: Unknown - Social History Smoking Status: Current every day smoker, Light tobacco smoker Hx Substance Use: Yes (meth) Alcohol Screening: None - Immunizations Tetanus Shot up to Date: Yes Physical Exam - Physical Exam Appearance: Well-appearing, No pain distress, Well-nourished Pain Distress: Moderate Eyes: ANGELA, EOMI, Conjunctiva clear ENT: Ears normal, Nose normal, Oropharynx normal Neck: Supple Respiratory: Airway patent, Breath sounds clear, Breath sounds equal, Respirations nonlabored Cardiovascular: RRR, Pulses normal, No rub, No murmur GI/: Soft, Nontender, No masses, Bowel sounds normal, No Organomegaly Musculoskeletal: Normal strength, No edema, No calf tenderness, Limited ROM Skin: Warm, Dry, Normal color Neurological: Sensation intact, Motor intact, Reflexes intact, Cranial nerves intact, Alert, Oriented Psychiatric: Affect appropriate, Mood appropriate Interpretation - Radiology Interpretation Radiology Interpretation By: ED Physician Radiology Results: Negative Critical Care Note - Critical Care Note Total Time (mins): 0 Course - Course Orders, Labs, Meds: Orders Category Date Time Status HIP, LEFT 2 VIEWS Stat RADS 04/30/18 17:54 Taken KNEE, RIGHT 4 VIEWS Stat RADS 04/30/18 17:54 Taken SHOULDER, LEFT MIN 2V Stat RADS 04/30/18 17:53 Taken Vital Signs: Temp Pulse Resp BP Pulse Ox 04/30/18 17:40 98.2 F 88 16 157/77 H 98 Departure - Departure Time of Disposition: 18:19 Disposition: HOME SELF-CARE Discharge Problem: Multiple contusions Instructions: Contusion in Adults (ED) Condition: Good Pt referred to PMD for follow-up: Yes IPMP verified?: No Additional Instructions: norco 5mg q 6hrs prn pain #10--f/u with pcp Allergies/Adverse Reactions: Allergies codeine Adverse Reaction (Verified 04/30/18 17:44) Vomiting nausea, vomit, itching morphine Adverse Reaction (Verified 04/30/18 17:44) ITCHING/VOMITING naproxen Adverse Reaction (Verified 04/30/18 17:44) Vomiting Home Medications: Ambulatory Orders Olanzapine [Zyprexa] 5 mg PO BEDTIME 07/08/17 Trazodone HCl 50 mg PO BEDTIME 07/08/17 Dextroamphetamine/Amphetamine [Adderall 30 mg Tablet] 75 mg PO DAILY 11/05/17 Disposition Discussed With: Patient, Family
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
== END 2018-04-30 18:27 | disposition home or self-care (01) ==
LOC: ED 17:40
DX: M25.512 Pain in left shoulder (principal); T07.XXXA Unspecified multiple injuries, initial encounter; W19.XXXA Unspecified fall, initial encounter; F17.210 Nicotine dependence, cigarettes, uncomplicated
CPT/HCPCS: 99283

== ENCOUNTER 2018-08-04 21:33 | Emergency (ER) ==
[2018-08-04 21:39] VITALS: BP 119/79; TEMP 97.4; BMI 22.9
[2018-08-04] MEDS ORDERED: FLEXERIL PO STA (21:55)
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
== END 2018-08-04 23:40 | disposition home or self-care (01) ==
LOC: ED 21:33
DX: M25.552 Pain in left hip (principal); M54.9 Dorsalgia, unspecified; F17.210 Nicotine dependence, cigarettes, uncomplicated; V89.2XXA Person injured in unspecified motor-vehicle accident, traffic, initial encounter
CPT/HCPCS: 36415; 84702; 99283

== ENCOUNTER 2018-08-21 13:42 | Emergency (ER) ==
[2018-08-21 13:46] VITALS: BP 176/70; TEMP 98; BMI 23.0
== END 2018-08-21 16:41 | disposition left against medical advice (07) ==
LOC: ED 13:42
DX: R11.0 Nausea (principal); R68.89 Other general symptoms and signs

== ENCOUNTER 2018-08-28 17:40 | Emergency (ER) ==
[2018-08-28 17:45] VITALS: BP 119/80; TEMP 98.1; BMI 22.5
--- NOTE | 2018-08-28 17:49 | ED.PDOC ---
General ED Provider: Dr. PURNIMA ESQUIVEL Chief Complaint: Tooth Problem Stated Complaint: dental pain a chronic issue Time Seen by Physician: 17:50 (may raphael present at all times ) Mode of Arrival: Walk-In Information Source: Patient Exam Limitations: No limitations Primary Care Provider: TANNER MIRANDA Nursing and Triage Documentation Reviewed and Agree: Yes Does patient meet sepsis criteria?: No System Inflammatory Response Syndrome: Not Applicable Sepsis Protocol: For patient's 13 years and over: Temp is 96.8 and below OR 101 and greater Pulse >90 BPM Resp >20/minute Acutely Altered Mental Status Are patient's symptoms suggestive of a new infection, such as: -Pneumonia -Skin, Soft Tissue -Endocarditis -UTI -Bone, Joint Infection -Implantable Device -Acute Abdominal Infection -Wound Infection -Meningitis -Blood Stream Catheter Infection -Unknown EENT Complaint Exam - Dental/Oral Complaint/Exam Mechanism of Injury: No known trauma Symptoms Are: Still present Timing: Constant Initial Severity: Moderate Current Severity: Moderate Character: Reports: Aching, Throbbing Aggravating: Reports: Heat, Cold, Chewing Alleviating: Reports: None Associated Signs and Symptoms: Denies: Swelling, Discharge, Fever, Foul odor, Foul taste in mouth Related History: Reports: Similar episode Cardiac Risk Factors: Reports: None Dental/Oral Surgical History: Reports: None Tooth Findings: Present: Gross decay, Gross caries Cervical Lymphadenopathy Present: No Facial Swelling Present: No Bleeding Present: No Oropharynx Findings: Absent: Clots, Active bleeding Septal Hematoma: No Foreign Body Present: No Dysphagia Present: No Drooling Present: No Asymmetrical Tonsillar Swelling Present: No Uvula Midline: Yes Lety-tonsillar Fluctuence: No Trismus Present: No Palatal Petechiae Present: No Scarlatinaform Rash Present: No Lesions: Absent: Lip, Gums, Tongue, Buccal Mucosa, Pharynx Exanthem: Absent: Tongue, Buccal Mucosa, Pharynx Teeth Picture: 1 - widespred decay Differential Diagnoses: Dental Caries Review of Systems - Review Of Systems Constitutional: Reports: No symptoms Eyes: Reports: No symptoms Ears, Nose, Mouth, Throat: Reports: No symptoms Respiratory: Reports: No symptoms Cardiac: Reports: No symptoms GI: Reports: No symptoms : Reports: No symptoms Musculoskeletal: Reports: No symptoms Skin: Reports: No symptoms Neurological: Reports: No symptoms Endocrine: Reports: No symptoms Hematologic/Lymphatic: Reports: No symptoms All Other Systems: Reviewed and Negative Past Medical History - Past Medical History Previously Healthy: No Endocrine: Reports: None Cardiovascular: Reports: None Respiratory: Reports: None Hematological: Reports: None Gastrointestinal: Reports: GERD Genitourinary: Reports: None Neuro/Psych: Reports: Migraine, Anxiety, Depression Musculoskeletal: Reports: None Cancer: Reports: None Last Menstrual Period: aug 23, 2018 Other Pertinent Past Medical History: dep anx migr appy tonsils smoker - Surgical History General Surgical History: Reports: Appendectomy, Tonsillectomy - Family History Family History: Reports: Unknown - Social History Smoking Status: Current every day smoker, Heavy tobacco smoker Hx Substance Use: Yes (meth) Alcohol Screening: None Physical Exam - Physical Exam Appearance: Well-appearing, No pain distress, Well-nourished Eyes: ANGELA, EOMI, Conjunctiva clear ENT: Ears normal, Nose normal, Oropharynx normal Respiratory: Airway patent, Breath sounds clear, Breath sounds equal, Respirations nonlabored Cardiovascular: RRR, Pulses normal, No rub, No murmur GI/: Soft, Nontender, No masses, Bowel sounds normal, No Organomegaly Musculoskeletal: Normal strength, ROM intact, No edema, No calf tenderness Skin: Warm, Dry, Normal color Neurological: Sensation intact, Motor intact, Reflexes intact, Cranial nerves intact, Alert, Oriented Psychiatric: Affect appropriate, Mood appropriate Critical Care Note - Critical Care Note Total Time (mins): 0 Course - Course Vital Signs: Temp Pulse Resp BP Pulse Ox 08/28/18 17:41 98.1 F 86 16 119/80 99 Departure - Departure Time of Disposition: 17:49 Disposition: HOME SELF-CARE Discharge Problem: Toothache, Pain, dental Instructions: Toothache (ED) Condition: Good Pt referred to PMD for follow-up: Yes IPMP verified?: No Additional Instructions: Please call your Family Physician as soon as possible to schedule a follow-up appointment. Allergies/Adverse Reactions: Allergies codeine Adverse Reaction (Verified 08/28/18 17:47) Vomiting nausea, vomit, itching morphine Adverse Reaction (Verified 08/28/18 17:47) ITCHING/VOMITING naproxen Adverse Reaction (Verified 08/28/18 17:47) Vomiting Home Medications: Ambulatory Orders Olanzapine [Zyprexa] 5 mg PO BEDTIME 07/08/17 Trazodone HCl 50 mg PO BEDTIME 07/08/17 Amoxicillin 500 mg PO Q8HR #21 tablet 08/28/18 Hydrocodone/Acetaminophen [[place] 5-325 Tablet] 1 each PO Q6HR PRN #7 tablet
== END 2018-08-28 17:54 | disposition home or self-care (01) ==
LOC: ED 17:40
DX: K08.89 Other specified disorders of teeth and supporting structures (principal); K02.9 Dental caries, unspecified
CPT/HCPCS: 99282

== ENCOUNTER 2018-09-22 17:09 | Emergency (ER) ==
[2018-09-22 17:20] VITALS: BP 134/83; TEMP 98.4; BMI 22.4
--- NOTE | 2018-09-22 17:30 | ED.PDOC ---
General ED Provider: Dr. PURNIMA ESQUIVEL Chief Complaint: Tooth Problem Stated Complaint: dental pain Time Seen by Physician: 17:10 Mode of Arrival: Walk-In Information Source: Patient Exam Limitations: No limitations Primary Care Provider: TANNER MIRANDA Nursing and Triage Documentation Reviewed and Agree: Yes Does patient meet sepsis criteria?: No System Inflammatory Response Syndrome: Not Applicable Sepsis Protocol: For patient's 13 years and over: Temp is 96.8 and below OR 101 and greater Pulse >90 BPM Resp >20/minute Acutely Altered Mental Status Are patient's symptoms suggestive of a new infection, such as: -Pneumonia -Skin, Soft Tissue -Endocarditis -UTI -Bone, Joint Infection -Implantable Device -Acute Abdominal Infection -Wound Infection -Meningitis -Blood Stream Catheter Infection -Unknown EENT Complaint Exam - Dental/Oral Complaint/Exam Mechanism of Injury: No known trauma Onset/Duration: chronic Symptoms Are: Still present Timing: Constant Initial Severity: Moderate Current Severity: Moderate Character: Reports: Dull, Aching, Throbbing Aggravating: Reports: Heat, Cold, Chewing Alleviating: Reports: None Associated Signs and Symptoms: Denies: Swelling, Discharge, Fever, Foul odor, Foul taste in mouth Related History: Reports: Similar episode Cardiac Risk Factors: Reports: None Dental/Oral Surgical History: Reports: None Tooth Findings: Present: Gross decay, Gross caries, Dental fracture Cervical Lymphadenopathy Present: No Facial Swelling Present: No Bleeding Present: No Septal Hematoma: No Foreign Body Present: No Dysphagia Present: No Drooling Present: No Asymmetrical Tonsillar Swelling Present: No Uvula Midline: No Lety-tonsillar Fluctuence: No Lesions: Absent: Lip, Gums, Buccal Mucosa, Pharynx Exanthem: Absent: Gums, Tongue, Buccal Mucosa, Pharynx Vesicles: Absent: Lip, Gums, Tongue, Buccal Mucosa, Pharynx Differential Diagnoses: Dental Caries Review of Systems - Review Of Systems Constitutional: Reports: No symptoms Eyes: Reports: No symptoms Ears, Nose, Mouth, Throat: Reports: No symptoms Respiratory: Reports: No symptoms Cardiac: Reports: No symptoms GI: Reports: No symptoms : Reports: No symptoms Musculoskeletal: Reports: No symptoms Skin: Reports: No symptoms Neurological: Reports: No symptoms Endocrine: Reports: No symptoms Hematologic/Lymphatic: Reports: No symptoms All Other Systems: Reviewed and Negative Past Medical History - Past Medical History Previously Healthy: No Endocrine: Reports: None Cardiovascular: Reports: None Respiratory: Reports: None Hematological: Reports: None Gastrointestinal: Reports: GERD Genitourinary: Reports: None Neuro/Psych: Reports: Migraine, Anxiety, Depression Musculoskeletal: Reports: None Cancer: Reports: None Last Menstrual Period: now Other Pertinent Past Medical History: dep anx migr appy tonsils smoker - Surgical History General Surgical History: Reports: Appendectomy, Tonsillectomy - Family History Family History: Reports: Unknown - Social History Smoking Status: Current every day smoker, Heavy tobacco smoker Hx Substance Use: Yes (meth) Alcohol Screening: None Physical Exam - Physical Exam Appearance: Well-appearing, No pain distress, Well-nourished Eyes: ANGELA, EOMI, Conjunctiva clear ENT: Ears normal, Nose normal, Oropharynx normal Respiratory: Airway patent, Breath sounds clear, Breath sounds equal, Respirations nonlabored Cardiovascular: RRR, Pulses normal, No rub, No murmur GI/: Soft, Nontender, No masses, Bowel sounds normal, No Organomegaly Musculoskeletal: Normal strength, ROM intact, No edema, No calf tenderness Skin: Warm, Dry, Normal color Neurological: Sensation intact, Motor intact, Reflexes intact, Cranial nerves intact, Alert, Oriented Psychiatric: Affect appropriate, Mood appropriate Critical Care Note - Critical Care Note Total Time (mins): 0 Course - Course Vital Signs: Temp Pulse Resp BP Pulse Ox 09/22/18 17:10 98.4 F 110 H 20 134/83 99 Departure - Departure Time of Disposition: 17:29 Disposition: HOME SELF-CARE Discharge Problem: Toothache Instructions: Toothache (ED) Condition: Good Pt referred to PMD for follow-up: Yes IPMP verified?: No Additional Instructions: Please call your Family Physician as soon as possible to schedule a follow-up appointment. Allergies/Adverse Reactions: Allergies codeine Adverse Reaction (Verified 09/22/18 17:19) Vomiting nausea, vomit, itching morphine Adverse Reaction (Verified 09/22/18 17:19) ITCHING/VOMITING naproxen Adverse Reaction (Verified 09/22/18 17:19) Vomiting Home Medications: Ambulatory Orders 1 [No Reported Medications] 09/22/18
== END 2018-09-22 17:36 | disposition home or self-care (01) ==
LOC: ED 17:09
DX: K08.89 Other specified disorders of teeth and supporting structures (principal); K02.9 Dental caries, unspecified; S02.5XXA Fracture of tooth (traumatic), initial encounter for closed fracture
CPT/HCPCS: 99282

== ENCOUNTER 2018-10-02 16:30 | Emergency (ER) ==
[2018-10-02 16:34] VITALS: BP 116/73; TEMP 97.5; BMI 22.0
--- NOTE | 2018-10-02 17:19 | ED.PDOC ---
General ED Provider: Dr. PURNIMA ESQUIVEL Chief Complaint: Tooth Problem Stated Complaint: dental pain Time Seen by Physician: 16:34 Mode of Arrival: Walk-In Information Source: Patient Exam Limitations: No limitations Primary Care Provider: TANNER MIRANDA Nursing and Triage Documentation Reviewed and Agree: Yes Does patient meet sepsis criteria?: No System Inflammatory Response Syndrome: Not Applicable Sepsis Protocol: For patient's 13 years and over: Temp is 96.8 and below OR 101 and greater Pulse >90 BPM Resp >20/minute Acutely Altered Mental Status Are patient's symptoms suggestive of a new infection, such as: -Pneumonia -Skin, Soft Tissue -Endocarditis -UTI -Bone, Joint Infection -Implantable Device -Acute Abdominal Infection -Wound Infection -Meningitis -Blood Stream Catheter Infection -Unknown EENT Complaint Exam - Dental/Oral Complaint/Exam Mechanism of Injury: No known trauma Onset/Duration: chronic many visits Symptoms Are: Still present Timing: Constant Initial Severity: Moderate Current Severity: Mild Character: Reports: Aching Aggravating: Reports: Heat, Cold, Chewing Alleviating: Reports: None Associated Signs and Symptoms: Denies: Swelling, Discharge, Fever, Foul odor, Foul taste in mouth Related History: Reports: Similar episode Cardiac Risk Factors: Reports: None Dental/Oral Surgical History: Reports: None Facial Swelling Present: No Bleeding Present: No Oropharynx Findings: Absent: Clots, Active bleeding Septal Hematoma: No Foreign Body Present: No Dysphagia Present: No Drooling Present: No Asymmetrical Tonsillar Swelling Present: No Uvula Midline: Yes Lety-tonsillar Fluctuence: No Trismus Present: No Palatal Petechiae Present: No Scarlatinaform Rash Present: No Lesions: Absent: Lip, Gums, Tongue, Buccal Mucosa, Pharynx Teeth Picture: 1 - advance decay , broken Review of Systems - Review Of Systems Constitutional: Reports: No symptoms Eyes: Reports: No symptoms Ears, Nose, Mouth, Throat: Reports: No symptoms Respiratory: Reports: No symptoms Cardiac: Reports: No symptoms GI: Reports: No symptoms : Reports: No symptoms Musculoskeletal: Reports: No symptoms Skin: Reports: No symptoms Neurological: Reports: No symptoms Endocrine: Reports: No symptoms Hematologic/Lymphatic: Reports: No symptoms All Other Systems: Reviewed and Negative Past Medical History - Past Medical History Previously Healthy: No Endocrine: Reports: None Cardiovascular: Reports: None Respiratory: Reports: None Hematological: Reports: None Gastrointestinal: Reports: GERD Genitourinary: Reports: None Neuro/Psych: Reports: Migraine, Anxiety, Depression Musculoskeletal: Reports: None Cancer: Reports: None Last Menstrual Period: 2018 Other Pertinent Past Medical History: dep anx migr appy tonsils smoker - Surgical History General Surgical History: Reports: Appendectomy, Tonsillectomy - Family History Family History: Reports: Unknown - Social History Smoking Status: Current every day smoker, Heavy tobacco smoker Hx Substance Use: Yes (meth) Alcohol Screening: None Physical Exam - Physical Exam Appearance: Well-appearing, No pain distress, Well-nourished Eyes: ANGELA, EOMI, Conjunctiva clear ENT: Ears normal, Nose normal, Oropharynx normal Respiratory: Airway patent, Breath sounds clear, Breath sounds equal, Respirations nonlabored Cardiovascular: RRR, Pulses normal, No rub, No murmur GI/: Soft, Nontender, No masses, Bowel sounds normal, No Organomegaly Musculoskeletal: Normal strength, ROM intact, No edema, No calf tenderness Skin: Warm, Dry, Normal color Neurological: Sensation intact, Motor intact, Reflexes intact, Cranial nerves intact, Alert, Oriented Psychiatric: Affect appropriate, Mood appropriate Critical Care Note - Critical Care Note Total Time (mins): 0 Course - Course Vital Signs: Temp Pulse Resp BP Pulse Ox 10/02/18 16:31 97.5 F L 105 H 16 116/73 97 Departure - Departure Time of Disposition: 17:19 Disposition: HOME SELF-CARE Discharge Problem: Toothache Instructions: Toothache (ED) Condition: Good Pt referred to PMD for follow-up: Yes IPMP verified?: Yes Additional Instructions: Please call your Family Physician as soon as possible to schedule a follow-up appointment. Allergies/Adverse Reactions: Allergies codeine Adverse Reaction (Verified 10/02/18 16:34) Vomiting nausea, vomit, itching morphine Adverse Reaction (Verified 10/02/18 16:34) ITCHING/VOMITING naproxen Adverse Reaction (Verified 10/02/18 16:34) Vomiting Home Medications: Ambulatory Orders 1 [No Reported Medications] 10/02/18
== END 2018-10-02 17:35 | disposition home or self-care (01) ==
LOC: ED 16:30
DX: K08.89 Other specified disorders of teeth and supporting structures (principal); Z72.0 Tobacco use
CPT/HCPCS: 99282

== ENCOUNTER 2018-10-08 11:17 | Emergency (ER) ==
[2018-10-08 11:25] VITALS: BP 115/81; TEMP 97.5; BMI 21.9
--- NOTE | 2018-10-08 12:30 | ED.PDOC ---
General ED Provider: Dr. PAO HUNTER Chief Complaint: Tooth Problem Stated Complaint: Severe dental caries with all but 1 tooth structure sheared/ broken off from maxillary location. Unable to find dentist to provide care. Lives with grandparents /boyfriend-transportation issues. States toradol and nsaid meds upset her stomach. Usually can tolerate Hydrocodone. Appears to be in acute distress from her pain. States at one point prior to moving here saw a dental provider in [facility] Time Seen by Physician: 11:40 Mode of Arrival: Walk-In Information Source: Patient Exam Limitations: No limitations Primary Care Provider: TANNER MIRANDA Nursing and Triage Documentation Reviewed and Agree: Yes Does patient meet sepsis criteria?: No If yes, has appropriate treatment been initiated?: No System Inflammatory Response Syndrome: Not Applicable Sepsis Protocol: For patient's 13 years and over: Temp is 96.8 and below OR 101 and greater Pulse >90 BPM Resp >20/minute Acutely Altered Mental Status Are patient's symptoms suggestive of a new infection, such as: -Pneumonia -Skin, Soft Tissue -Endocarditis -UTI -Bone, Joint Infection -Implantable Device -Acute Abdominal Infection -Wound Infection -Meningitis -Blood Stream Catheter Infection -Unknown EENT Complaint Exam - Dental/Oral Complaint/Exam Mechanism of Injury: No known trauma Onset/Duration: several months Symptoms Are: Worse Timing: Constant Initial Severity: Moderate Current Severity: Severe Location: global Character: Reports: Sharp, Aching, Throbbing Aggravating: Reports: Chewing Alleviating: Reports: None Associated Signs and Symptoms: Reports: Foul taste in mouth. Denies: Swelling, Discharge, Fever, Foul odor Related History: Reports: Similar episode Cardiac Risk Factors: Reports: None Dental/Oral Surgical History: Reports: None Tooth Findings: Present: Percussion tenderness, Gross decay, Gross caries, Dental fracture Cervical Lymphadenopathy Present: No Facial Swelling Present: No Bleeding Present: No Oropharynx Findings: Absent: Clots, Active bleeding Septal Hematoma: No Foreign Body Present: No Dysphagia Present: No Drooling Present: No Asymmetrical Tonsillar Swelling Present: No Uvula Midline: Yes Lety-tonsillar Fluctuence: No Trismus Present: No Palatal Petechiae Present: No Scarlatinaform Rash Present: No Lesions: Absent: Lip, Gums, Tongue, Buccal Mucosa, Pharynx Exanthem: Absent: Lip, Gums, Tongue, Buccal Mucosa, Pharynx Vesicles: Absent: Lip, Gums, Tongue, Buccal Mucosa, Pharynx Teeth Picture: 1 - only tooth present lower is # 24 Review of Systems - Review Of Systems Constitutional: Reports: No symptoms Eyes: Reports: No symptoms Ears, Nose, Mouth, Throat: Reports: No symptoms, Mouth pain, Loose teeth Respiratory: Reports: No symptoms Cardiac: Reports: No symptoms GI: Reports: No symptoms : Reports: No symptoms Musculoskeletal: Reports: No symptoms Skin: Reports: No symptoms Neurological: Reports: No symptoms Endocrine: Reports: No symptoms Hematologic/Lymphatic: Reports: No symptoms All Other Systems: Reviewed and Negative Past Medical History - Past Medical History Previously Healthy: No Endocrine: Reports: None Cardiovascular: Reports: None Respiratory: Reports: None Hematological: Reports: None Gastrointestinal: Reports: GERD Genitourinary: Reports: None Neuro/Psych: Reports: Migraine, Anxiety, Depression Musculoskeletal: Reports: None Cancer: Reports: None Last Menstrual Period: 09/17 Other Pertinent Past Medical History: dep anx migr appy tonsils smoker - Surgical History General Surgical History: Reports: Appendectomy, Tonsillectomy - Family History Family History: Reports: Unknown - Social History Smoking Status: Current every day smoker, Heavy tobacco smoker Hx Substance Use: Yes (Meth) Alcohol Screening: None Physical Exam - Physical Exam Appearance: Well-appearing, Thin Pain Distress: Mild Eyes: ANGELA, EOMI, Conjunctiva clear ENT: Ears normal, Nose normal, Oropharynx normal Neck: Supple Respiratory: Airway patent, Breath sounds clear, Breath sounds equal, Respirations nonlabored Cardiovascular: RRR, Pulses normal, No rub, No murmur GI/: Soft, Nontender, No masses, Bowel sounds normal, No Organomegaly Musculoskeletal: Normal strength, ROM intact, No edema, No calf tenderness Skin: Warm, Dry, Normal color Neurological: Sensation intact, Motor intact, Reflexes intact, Cranial nerves intact, Alert, Oriented Psychiatric: Affect appropriate Critical Care Note - Critical Care Note Total Time (mins): 0 Course - Course Vital Signs: Temp Pulse Resp BP Pulse Ox 10/08/18 11:21 97.5 F L 112 H 20 115/81 98 Departure - Departure Time of Disposition: 12:45 Disposition: HOME SELF-CARE Discharge Problem: Tooth ache, Dental caries extending into pulp, Cellulitis of gingiva Instructions: Dental Abscess (ED), Toothache (ED) Condition: Stable Pt referred to PMD for follow-up: Yes (PCP and dentist) IPMP verified?: No Additional Instructions: Rinse mouth with warm salt water/diluted peroxide Take meds as directed. MAKE AND KEEP A DENTAL APPOINTMENT Prescriptions: Hydrocodone Bit/Acetaminophen [[place] 5-325] 1 each PO Q6HR PRN #20 tablet PRN Reason: dental pain Clindamycin HCl [Cleocin HCl] 300 mg PO TID #30 capsule Allergies/Adverse Reactions: Allergies codeine Adverse Reaction (Verified 10/08/18 11:27) Vomiting nausea, vomit, itching morphine Adverse Reaction (Verified 10/08/18 11:27) ITCHING/VOMITING naproxen Adverse Reaction (Verified 10/08/18 11:27) Vomiting Home Medications: Ambulatory Orders Clindamycin HCl [Cleocin HCl] 300 mg PO TID #30 capsule 10/08/18 Hydrocodone Bit/Acetaminophen [[place] 5-325] 1 each PO Q6HR PRN #20 tablet Disposition Discussed With: Patient
== END 2018-10-08 13:03 | disposition home or self-care (01) ==
LOC: ED 11:17
DX: K08.89 Other specified disorders of teeth and supporting structures (principal); K02.7 Dental root caries; K12.2 Cellulitis and abscess of mouth
CPT/HCPCS: 99282

== ENCOUNTER 2018-10-28 13:40 | Emergency (ER) ==
[2018-10-28 13:50] VITALS: BP 106/71; TEMP 97.8; BMI 22.6
--- NOTE | 2018-10-28 14:09 | ED.PDOC ---
General ED Provider: Dr. ANYA HAWLEY Chief Complaint: Tooth Problem Stated Complaint: "I have had dental pain and caries for weeks". Has an Apt in 2 days with dentist Time Seen by Physician: 14:00 Mode of Arrival: Walk-In Information Source: Patient Exam Limitations: No limitations Primary Care Provider: TANNER MIRANDA Nursing and Triage Documentation Reviewed and Agree: Yes Does patient meet sepsis criteria?: No System Inflammatory Response Syndrome: Not Applicable Sepsis Protocol: For patient's 13 years and over: Temp is 96.8 and below OR 101 and greater Pulse >90 BPM Resp >20/minute Acutely Altered Mental Status Are patient's symptoms suggestive of a new infection, such as: -Pneumonia -Skin, Soft Tissue -Endocarditis -UTI -Bone, Joint Infection -Implantable Device -Acute Abdominal Infection -Wound Infection -Meningitis -Blood Stream Catheter Infection -Unknown EENT Complaint Exam - Dental/Oral Complaint/Exam Mechanism of Injury: No known trauma Onset/Duration: 2 weeks Symptoms Are: Still present Timing: Constant Initial Severity: Moderate Current Severity: Moderate Location: mandible Character: Reports: Aching, Throbbing Aggravating: Reports: Heat, Cold, Chewing Associated Signs and Symptoms: Reports: Discharge, Foul odor, Foul taste in mouth. Denies: Swelling, Fever Cardiac Risk Factors: Reports: None Dental/Oral Surgical History: Reports: None Tooth Findings: Present: Gross decay, Gross caries, Abcess Cervical Lymphadenopathy Present: No Facial Swelling Present: No Bleeding Present: No Oropharynx Findings: Absent: Clots, Active bleeding Septal Hematoma: No Foreign Body Present: No Dysphagia Present: No Drooling Present: No Asymmetrical Tonsillar Swelling Present: No Uvula Midline: No Lety-tonsillar Fluctuence: No Trismus Present: No Palatal Petechiae Present: No Scarlatinaform Rash Present: No Differential Diagnoses: Dental Abcess, Dental Caries Review of Systems - Review Of Systems Constitutional: Reports: No symptoms Eyes: Reports: No symptoms Ears, Nose, Mouth, Throat: Reports: Mouth pain, Mouth swelling, Loose teeth Respiratory: Reports: No symptoms Cardiac: Reports: No symptoms GI: Reports: No symptoms : Reports: No symptoms Musculoskeletal: Reports: No symptoms Skin: Reports: No symptoms Neurological: Reports: No symptoms Endocrine: Reports: No symptoms Hematologic/Lymphatic: Reports: No symptoms All Other Systems: Reviewed and Negative Past Medical History - Past Medical History Previously Healthy: No Endocrine: Reports: None Cardiovascular: Reports: None Respiratory: Reports: None Hematological: Reports: None Gastrointestinal: Reports: GERD Genitourinary: Reports: None Neuro/Psych: Reports: Migraine, Anxiety, Depression Musculoskeletal: Reports: None Cancer: Reports: None Last Menstrual Period: this month Other Pertinent Past Medical History: dep anx migr appy tonsils smoker - Surgical History General Surgical History: Reports: Appendectomy, Tonsillectomy - Family History Family History: Reports: Unknown - Social History Smoking Status: Current every day smoker, Heavy tobacco smoker Hx Substance Use: Yes (Meth) Alcohol Screening: None Physical Exam - Physical Exam Appearance: Thin Ill-appearing: Mild Pain Distress: Severe Eyes: ANGELA, EOMI ENT: Ears normal, Nose normal Neck: Supple Respiratory: Airway patent, Breath sounds clear, Breath sounds equal, Respirations nonlabored Cardiovascular: RRR, Pulses normal, No rub, No murmur Neurological: Alert, Oriented Psychiatric: Anxious Critical Care Note - Critical Care Note Total Time (mins): 0 Course - Course Vital Signs: Temp Pulse Resp BP Pulse Ox 10/28/18 13:41 97.8 F 106 H 20 106/71 98 Departure - Departure Time of Disposition: 14:09 Disposition: HOME SELF-CARE Discharge Problem: Toothache Instructions: Dental Abscess (ED), Toothache (ED) Condition: Stable Pt referred to PMD for follow-up: Yes IPMP verified?: No Additional Instructions: Take Medications as prescribed Prescriptions: Amoxicillin [Amoxil] 500 mg PO TID #30 capsule Ibuprofen [Motrin] 600 mg PO Q6H PRN #30 tablet PRN Reason: Analgesia Allergies/Adverse Reactions: Allergies codeine Adverse Reaction (Verified 10/28/18 13:47) Vomiting nausea, vomit, itching morphine Adverse Reaction (Verified 10/28/18 13:47) ITCHING/VOMITING naproxen Adverse Reaction (Verified 10/28/18 13:47) Vomiting Home Medications: Ambulatory Orders Amoxicillin [Amoxil] 500 mg PO TID #30 capsule 10/28/18 Ibuprofen [Motrin] 600 mg PO Q6H PRN #30 tablet 10/28/18 Prenat 115/Iron Fum/Folic/Dss [ 19 Tablet] 1 each PO DAILY 10/28/18 Disposition Discussed With: Patient, Family
[2018-10-28] MEDS ORDERED: TORADOL IM STA (14:18)
== END 2018-10-28 14:46 | disposition home or self-care (01) ==
LOC: ED 13:40
DX: K08.89 Other specified disorders of teeth and supporting structures (principal); K02.7 Dental root caries; K04.7 Periapical abscess without sinus; F17.210 Nicotine dependence, cigarettes, uncomplicated
CPT/HCPCS: 96372; 99282

== ENCOUNTER 2018-11-24 13:02 | Emergency (ER) ==
--- NOTE | 2018-11-24 13:09 | ED.PDOC ---
General ED Provider: Dr. PURNIMA ESQUIVEL Chief Complaint: Tooth Problem Stated Complaint: dental brian A CHRONIC ISSUE Time Seen by Physician: 13:20 (SEEN WITH NURSE AT ALL TIMES ) Exam Limitations: No limitations Primary Care Provider: TANNER MIRANDA Nursing and Triage Documentation Reviewed and Agree: Yes Does patient meet sepsis criteria?: No System Inflammatory Response Syndrome: Not Applicable Sepsis Protocol: For patient's 13 years and over: Temp is 96.8 and below OR 101 and greater Pulse >90 BPM Resp >20/minute Acutely Altered Mental Status Are patient's symptoms suggestive of a new infection, such as: -Pneumonia -Skin, Soft Tissue -Endocarditis -UTI -Bone, Joint Infection -Implantable Device -Acute Abdominal Infection -Wound Infection -Meningitis -Blood Stream Catheter Infection -Unknown EENT Complaint Exam - Dental/Oral Complaint/Exam Mechanism of Injury: No known trauma Symptoms Are: Still present Timing: Intermittent Initial Severity: Mild Current Severity: Mild Character: Reports: Dull, Aching, Throbbing Aggravating: Reports: Heat, Cold Alleviating: Reports: None Associated Signs and Symptoms: Denies: Swelling, Discharge, Fever, Foul odor, Foul taste in mouth Related History: Reports: Similar episode Cardiac Risk Factors: Reports: None Dental/Oral Surgical History: Reports: None Cervical Lymphadenopathy Present: No Facial Swelling Present: No Bleeding Present: No Septal Hematoma: No Foreign Body Present: No Dysphagia Present: No Drooling Present: No Asymmetrical Tonsillar Swelling Present: No Uvula Midline: Yes Lety-tonsillar Fluctuence: No Trismus Present: No Palatal Petechiae Present: No Scarlatinaform Rash Present: No Lesions: Absent: Lip, Gums, Tongue, Buccal Mucosa, Pharynx Exanthem: Absent: Lip, Gums, Tongue, Buccal Mucosa, Pharynx Vesicles: Absent: Lip, Gums, Tongue, Buccal Mucosa, Pharynx Teeth Picture: 1 - DECAY Differential Diagnoses: Dental Caries, Fractured Tooth Review of Systems - Review Of Systems Constitutional: Reports: No symptoms Eyes: Reports: No symptoms Ears, Nose, Mouth, Throat: Reports: No symptoms Respiratory: Reports: No symptoms Cardiac: Reports: No symptoms GI: Reports: No symptoms : Reports: No symptoms Musculoskeletal: Reports: No symptoms Skin: Reports: No symptoms Neurological: Reports: No symptoms Endocrine: Reports: No symptoms Hematologic/Lymphatic: Reports: No symptoms All Other Systems: Reviewed and Negative Past Medical History - Past Medical History Previously Healthy: No Endocrine: Reports: None Cardiovascular: Reports: None Respiratory: Reports: None Hematological: Reports: None Gastrointestinal: Reports: GERD Genitourinary: Reports: None Neuro/Psych: Reports: Migraine, Anxiety, Depression Musculoskeletal: Reports: None Cancer: Reports: None Other Pertinent Past Medical History: dep anx migr appy tonsils smoker - Surgical History General Surgical History: Reports: Appendectomy, Tonsillectomy - Family History Family History: Reports: Unknown - Social History Smoking Status: Current every day smoker, Heavy tobacco smoker Hx Substance Use: Yes (Meth) Alcohol Screening: None Physical Exam - Physical Exam Appearance: Well-appearing, No pain distress, Well-nourished Eyes: ANGELA, EOMI, Conjunctiva clear ENT: Ears normal, Nose normal, Oropharynx normal Respiratory: Airway patent, Breath sounds clear, Breath sounds equal, Respirations nonlabored Cardiovascular: RRR, Pulses normal, No rub, No murmur GI/: Soft, Nontender, No masses, Bowel sounds normal, No Organomegaly Musculoskeletal: Normal strength, ROM intact, No edema, No calf tenderness Skin: Warm, Dry, Normal color Neurological: Sensation intact, Motor intact, Reflexes intact, Cranial nerves intact, Alert, Oriented Psychiatric: Affect appropriate, Mood appropriate Critical Care Note - Critical Care Note Total Time (mins): 0 Departure - Departure Time of Disposition: 13:09 Disposition: HOME SELF-CARE Discharge Problem: Toothache Instructions: Toothache (ED) Condition: Good Pt referred to PMD for follow-up: Yes IPMP verified?: No Additional Instructions: Please call your Family Physician as soon as possible to schedule a follow-up appointment. Allergies/Adverse Reactions: Allergies codeine Adverse Reaction (Verified 10/28/18 13:47) Vomiting nausea, vomit, itching morphine Adverse Reaction (Verified 10/28/18 13:47) ITCHING/VOMITING naproxen Adverse Reaction (Verified 10/28/18 13:47) Vomiting Home Medications: Ambulatory Orders Amoxicillin [Amoxil] 500 mg PO TID #30 capsule 10/28/18 Ibuprofen [Motrin] 600 mg PO Q6H PRN #30 tablet 10/28/18 Prenat 115/Iron Fum/Folic/Dss [ 19 Tablet] 1 each PO DAILY 10/28/18
[2018-11-24 13:16] VITALS: BP 116/75; TEMP 96.8; BMI 23.7
== END 2018-11-24 13:20 | disposition home or self-care (01) ==
LOC: ED 13:02
DX: K08.89 Other specified disorders of teeth and supporting structures (principal); F17.210 Nicotine dependence, cigarettes, uncomplicated; K02.7 Dental root caries; S02.5XXA Fracture of tooth (traumatic), initial encounter for closed fracture
CPT/HCPCS: 99282

== ENCOUNTER 2019-01-04 13:45 | Emergency (ER) ==
[2019-01-04 13:58] VITALS: BP 120/78; TEMP 97.4; BMI 23.3
--- NOTE | 2019-01-04 16:22 | ED.PDOC ---
General ED Provider: Dr. PURNIMA ESQUIVEL Chief Complaint: Tooth Problem Stated Complaint: dental pain Time Seen by Physician: 14:00 Mode of Arrival: Walk-In Information Source: Patient Exam Limitations: No limitations Primary Care Provider: TANNER MIRANDA Nursing and Triage Documentation Reviewed and Agree: Yes Does patient meet sepsis criteria?: No System Inflammatory Response Syndrome: Not Applicable Sepsis Protocol: For patient's 13 years and over: Temp is 96.8 and below OR 101 and greater Pulse >90 BPM Resp >20/minute Acutely Altered Mental Status Are patient's symptoms suggestive of a new infection, such as: -Pneumonia -Skin, Soft Tissue -Endocarditis -UTI -Bone, Joint Infection -Implantable Device -Acute Abdominal Infection -Wound Infection -Meningitis -Blood Stream Catheter Infection -Unknown EENT Complaint Exam - Dental/Oral Complaint/Exam Mechanism of Injury: Trauma (extraction) Onset/Duration: 2 days Symptoms Are: Still present Timing: Constant Initial Severity: Moderate Current Severity: Moderate Character: Reports: Aching Associated Signs and Symptoms: Denies: Swelling, Discharge, Fever, Foul odor, Foul taste in mouth Related History: Reports: Similar episode Cardiac Risk Factors: Reports: None Dental/Oral Surgical History: Reports: None Tooth Findings: Present: Gross decay, Gross caries Facial Swelling Present: No Bleeding Present: No Oropharynx Findings: Absent: Clots, Active bleeding Septal Hematoma: No Foreign Body Present: No Dysphagia Present: No Drooling Present: No Asymmetrical Tonsillar Swelling Present: No Uvula Midline: Yes Lety-tonsillar Fluctuence: No Trismus Present: No Palatal Petechiae Present: No Scarlatinaform Rash Present: No Teeth Picture: 1 - decay Differential Diagnoses: Dental Caries Review of Systems - Review Of Systems Constitutional: Reports: No symptoms Eyes: Reports: No symptoms Ears, Nose, Mouth, Throat: Reports: Mouth pain Respiratory: Reports: No symptoms Cardiac: Reports: No symptoms GI: Reports: No symptoms : Reports: No symptoms Musculoskeletal: Reports: No symptoms Skin: Reports: No symptoms Neurological: Reports: No symptoms Endocrine: Reports: No symptoms Hematologic/Lymphatic: Reports: No symptoms All Other Systems: Reviewed and Negative Past Medical History - Past Medical History Previously Healthy: No Endocrine: Reports: None Cardiovascular: Reports: None Respiratory: Reports: None Hematological: Reports: None Gastrointestinal: Reports: GERD Genitourinary: Reports: None Neuro/Psych: Reports: Migraine, Anxiety, Depression Musculoskeletal: Reports: None Cancer: Reports: None Last Menstrual Period: started december 11 Other Pertinent Past Medical History: dep anx migr appy tonsils smoker - Surgical History General Surgical History: Reports: Appendectomy, Tonsillectomy - Family History Family History: Reports: Unknown - Social History Smoking Status: Current every day smoker, Heavy tobacco smoker Hx Substance Use: Yes (Meth) Alcohol Screening: None - Immunizations Tetanus Shot up to Date: Yes Physical Exam - Physical Exam Appearance: Well-appearing, No pain distress, Well-nourished Eyes: ANGELA, EOMI, Conjunctiva clear ENT: Ears normal, Nose normal, Oropharynx normal Respiratory: Airway patent, Breath sounds clear, Breath sounds equal, Respirations nonlabored Cardiovascular: RRR, Pulses normal, No rub, No murmur GI/: Soft, Nontender, No masses, Bowel sounds normal, No Organomegaly Musculoskeletal: Normal strength, ROM intact, No edema, No calf tenderness Skin: Warm, Dry, Normal color Neurological: Sensation intact, Motor intact, Reflexes intact, Cranial nerves intact, Alert, Oriented Psychiatric: Affect appropriate, Mood appropriate Critical Care Note - Critical Care Note Total Time (mins): 0 Course - Course Vital Signs: Temp Pulse Resp BP Pulse Ox 01/04/19 13:47 97.4 F L 82 20 120/78 97 Departure - Departure Time of Disposition: 16:23 Disposition: HOME SELF-CARE Discharge Problem: Toothache Instructions: Toothache (ED) Condition: Good Pt referred to PMD for follow-up: Yes IPMP verified?: No Additional Instructions: Please call your Family Physician as soon as possible to schedule a follow-up appointment. Allergies/Adverse Reactions: Allergies codeine Adverse Reaction (Verified 01/04/19 15:49) Vomiting nausea, vomit, itching morphine Adverse Reaction (Verified 01/04/19 15:49) ITCHING/VOMITING naproxen Adverse Reaction (Verified 01/04/19 15:49) Vomiting Home Medications: Ambulatory Orders 1 [No Reported Medications] 11/24/18
== END 2019-01-04 16:29 | disposition home or self-care (01) ==
LOC: ED 13:45
DX: K08.89 Other specified disorders of teeth and supporting structures (principal); K02.7 Dental root caries; F17.210 Nicotine dependence, cigarettes, uncomplicated
CPT/HCPCS: 99282

== ENCOUNTER 2019-01-05 21:36 | Emergency (ER) ==
[2019-01-05 21:47] VITALS: BP 117/80; TEMP 98.8; BMI 23.2
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
== END 2019-01-05 21:55 | disposition home or self-care (01) ==
LOC: ED 21:36
DX: K08.89 Other specified disorders of teeth and supporting structures (principal); K08.409 Partial loss of teeth, unspecified cause, unspecified class; Z98.818 Other dental procedure status
CPT/HCPCS: 99282

== ENCOUNTER 2019-01-31 20:44 | Emergency (ER) ==
[2019-01-31 20:51] VITALS: BP 126/79; TEMP 96; BMI 23.9
--- NOTE | 2019-01-31 20:59 | ED.PDOC ---
General ED Provider: Dr. ANYA HAWLEY Chief Complaint: Tooth Problem Stated Complaint: Patient states she has right upper molar dental pain. Time Seen by Physician: 20:57 Mode of Arrival: Walk-In Information Source: Patient Primary Care Provider: TANNER MIRANDA Nursing and Triage Documentation Reviewed and Agree: Yes Does patient meet sepsis criteria?: No System Inflammatory Response Syndrome: Not Applicable Sepsis Protocol: For patient's 13 years and over: Temp is 96.8 and below OR 101 and greater Pulse >90 BPM Resp >20/minute Acutely Altered Mental Status Are patient's symptoms suggestive of a new infection, such as: -Pneumonia -Skin, Soft Tissue -Endocarditis -UTI -Bone, Joint Infection -Implantable Device -Acute Abdominal Infection -Wound Infection -Meningitis -Blood Stream Catheter Infection -Unknown EENT Complaint Exam - Dental/Oral Complaint/Exam Mechanism of Injury: No known trauma Onset/Duration: 1 week Symptoms Are: Still present Timing: Constant Initial Severity: Moderate Current Severity: Severe Location: right upper and lower molars Character: Reports: Aching, Throbbing Aggravating: Reports: Chewing Alleviating: Reports: None Associated Signs and Symptoms: Reports: Swelling, Discharge, Foul odor, Foul taste in mouth Related History: Reports: Similar episode Cardiac Risk Factors: Reports: None Dental/Oral Surgical History: Reports: Third Molar Extractions Tooth Findings: Present: Gross decay, Gross caries, Dental fracture, Abcess Facial Swelling Present: No Bleeding Present: No Oropharynx Findings: Absent: Clots, Active bleeding Septal Hematoma: No Foreign Body Present: No Dysphagia Present: No Drooling Present: No Asymmetrical Tonsillar Swelling Present: No Uvula Midline: Yes Lety-tonsillar Fluctuence: No Trismus Present: No Palatal Petechiae Present: No Scarlatinaform Rash Present: No Lesions: Absent: Lip, Gums, Tongue, Buccal Mucosa, Pharynx Exanthem: Absent: Lip, Gums, Tongue, Buccal Mucosa, Pharynx Vesicles: Absent: Lip, Gums, Tongue, Buccal Mucosa, Pharynx Teeth Picture: 1 - dental caries 2 - missing teeth 3 - treach mouth Differential Diagnoses: Dental Abcess, Dental Caries, Fractured Tooth Review of Systems - Review Of Systems Constitutional: Reports: No symptoms Ears, Nose, Mouth, Throat: Reports: Mouth pain, Loose teeth GI: Reports: No symptoms : Reports: No symptoms Musculoskeletal: Reports: No symptoms Skin: Reports: No symptoms Neurological: Reports: Anxiety Endocrine: Reports: No symptoms Hematologic/Lymphatic: Reports: No symptoms All Other Systems: Reviewed and Negative Past Medical History - Past Medical History Previously Healthy: No Endocrine: Reports: None Cardiovascular: Reports: None Respiratory: Reports: None Hematological: Reports: None Gastrointestinal: Reports: GERD Genitourinary: Reports: None Neuro/Psych: Reports: Migraine, Anxiety, Depression Musculoskeletal: Reports: None Cancer: Reports: None Last Menstrual Period: this month Other Pertinent Past Medical History: dep anx migr appy tonsils smoker - Surgical History General Surgical History: Reports: Appendectomy, Tonsillectomy - Family History Family History: Reports: Unknown - Social History Smoking Status: Current every day smoker Hx Substance Use: No Alcohol Screening: None - Immunizations Tetanus Shot up to Date: Yes Physical Exam - Physical Exam Appearance: Well-appearing Pain Distress: Moderate Eyes: ANGELA, EOMI, Conjunctiva clear ENT: Ears normal, Nose normal Neck: Supple Respiratory: Airway patent, Breath sounds clear, Breath sounds equal, Respirations nonlabored Cardiovascular: RRR, Pulses normal, No rub, No murmur Neurological: Alert, Oriented Psychiatric: Anxious Critical Care Note - Critical Care Note Total Time (mins): 0 Course - Course Vital Signs: Temp Pulse Resp BP Pulse Ox 01/31/19 20:45 96.0 F L 90 18 126/79 99 Departure - Departure Time of Disposition: 21:10 Disposition: HOME SELF-CARE Discharge Problem: Dental caries into pulp Instructions: Dental Abscess (ED), Toothache (ED) Condition: Stable Pt referred to PMD for follow-up: Yes IPMP verified?: Yes (recently recieved Hydrocodone at the begining of the month and requently.) Additional Instructions: Take medications as prescribed Follow up with Your dentist in 3 days Prescriptions: Amoxicillin/Potassium Clav [Augmentin 875-125 mg Tab] 1 tab PO Q12HR #20 tablet Ibuprofen [Motrin] 600 mg PO Q6H PRN #30 tablet PRN Reason: Analgesia Allergies/Adverse Reactions: Allergies codeine Adverse Reaction (Verified 01/05/19 21:46) Vomiting nausea, vomit, itching morphine Adverse Reaction (Verified 01/05/19 21:46) ITCHING/VOMITING naproxen Adverse Reaction (Verified 01/05/19 21:46) Vomiting Home Medications: Ambulatory Orders Amoxicillin/Potassium Clav [Augmentin 875-125 mg Tab] 1 tab PO Q12HR #20 tablet 01/31/19 Ibuprofen [Motrin] 600 mg PO Q6H PRN #30 tablet 01/31/19 Disposition Discussed With: Patient
== END 2019-01-31 21:13 | disposition home or self-care (01) ==
LOC: ED 20:44
DX: K08.89 Other specified disorders of teeth and supporting structures (principal); K02.7 Dental root caries; K04.7 Periapical abscess without sinus; S02.5XXA Fracture of tooth (traumatic), initial encounter for closed fracture; F17.210 Nicotine dependence, cigarettes, uncomplicated
CPT/HCPCS: 99282

== ENCOUNTER 2019-03-05 16:22 | Emergency (ER) ==
[2019-03-05 16:25] VITALS: BP 122/78; TEMP 97.8; BMI 24.0
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
== END 2019-03-05 16:54 | disposition home or self-care (01) ==
LOC: ED 16:22
DX: S70.12XA Contusion of left thigh, initial encounter (principal); W50.0XXA Accidental hit or strike by another person, initial encounter; F17.210 Nicotine dependence, cigarettes, uncomplicated
CPT/HCPCS: 99281

== ENCOUNTER 2019-03-12 17:28 | Emergency (ER) ==
[2019-03-12 17:31] VITALS: BP 138/85; TEMP 97.9; BMI 24.6
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
[2019-03-12] MEDS ORDERED: TORADOL IM STA (19:13)
== END 2019-03-12 20:25 | disposition admitted as inpatient to this hospital (09) ==
LOC: ED 17:28
DX: S00.531A Contusion of lip, initial encounter (principal); K08.89 Other specified disorders of teeth and supporting structures; Y04.2XXA Assault by strike against or bumped into by another person, initial encounter; F17.210 Nicotine dependence, cigarettes, uncomplicated
CPT/HCPCS: 96372; 99283